=== PATIENT | female | born 1955 | race Caucasian/White ===

== ENCOUNTER → 2016-08-17 | Outpatient (CLI) | payer MEDICARE, OTHER ==
--- NOTE | 2016-08-17 11:47 | ECHOS ---
DATE OF SERVICE: 08/17/2016 AGE: 60Y SEX: F HT: 61 WT: 98 lbs. Protocol Davi: X Others: Stress Echo Stage: II Dur. of Exercise: 6 minutes *Heart Rate Blood Pressure *Rest: 89 Rest: 144/92 * *Max. Achieved: 129 Maximum BP: 144/92 85% PMHR: 135 100% PMHR: 159 *METS: 6.4 INDICATIONS: Chest pain. MEDICATIONS: Lisinopril, Lasix, Evista, aspirin, Requip, Lipitor, Ventolin, Selenium. CLINICAL INFORMATION: Shortness of breath, chest pain, hypertension, family history of coronary artery disease. Resting ECG shows sinus rhythm, rate of 89 beats per minutes, KS interval 0.16, QRS of 0.08, normal ST-T waves. Utilizing a standard Davi protocol, a symptom limited treadmill test was performed. Patient exercised for total of 6 minutes, attained a peak heart rate of 129 beats per minute, which is approximately 81% predicted maximum heart rate, ( ) below the required. Patient did not report any symptoms. Exercise test was terminated because of fatigue. No ST segment deviations indicative of ischemia are noted at this subdiagnostic heart rate. Baseline images show normal thickening and contractility. Postexercise images show improved contractility and thickening, but at 81% predicted maximum heart rate clinical correlation is suggested. [employer] WORK[employer] IMPRESSION: 1. Normal stress echocardiogram, but at 81% predicted maximal heart rate, did not reach 85%. Clinical correlation is suggested. 2. Patient did not report any symptoms other than fatigue and shortness of breath. No ST segment deviations indicative of ischemia were noted in any of the monitoring 12 leads.
== END | disposition home or self-care (01) ==
LOC: RADNMMAIN 08:42
PROVIDERS: ATTEND Family Medicine
DX: R06.02 Shortness of breath (principal); R53.83 Other fatigue; R07.9 Chest pain, unspecified
CPT/HCPCS: 93017; 93350

== ENCOUNTER → 2016-09-25 | Outpatient (CLI) | payer MEDICARE, OTHER ==
--- NOTE | 2016-09-25 09:48 | MM ---
Reason for exam: follow-up at short interval from prior study. Last mammogram was performed 6 months ago. History: Patient is postmenopausal. Benign US biopsy breast VAD LT of the left breast, January 28, 2015. Benign US biopsy breast add'l VAD LT of the left breast, January 28, 2015. Benign US RT VAD breast biopsy of the right breast, July 30, 2013. Benign US RT VAD breast biopsy of the right breast, July 30, 2013. Benign US RT VAD breast biopsy of the right breast, July 30, 2013. Benign US LT VAD breast biopsy of the left breast, July 30, 2013. Benign right breast aspiration of the right breast, July 25, 2012. Benign right breast aspiration additional of the right breast, July 25, 2012. Benign US right guided mammotome of the right breast, November 08, 2005. Benign excisional biopsy of the left breast, November 22, 1998. Stereotactic core biopsy of the left breast, November 17, 1998. Took estrogen for 1 year beginning at age 51. Physical Findings: Nurse did not find any significant physical abnormalities on exam. MG 3D Diag Mammo W/Cad RT CC and MLO view(s) were taken of the right breast. Prior study comparison: March 20, 2016, bilateral MG 3d diag mammo w/cad LEENA. August 17, 2015, bilateral MG 3d diag mammo w/cad LEENA. The breast tissue is extremely dense which could obscure a lesion on mammography. Finding #1: Stable architectural distortion in the upper outer quadrant, anterior position of the right breast. Finding #2: There are typically benign dystrophic, round, grouped, diffuse/scattered calcifications in the right breast. Previous mammotome biopsy in the right breast x 3. There is no discrete abnormality. These results were verbally communicated with the patient and result sheet given to the patient on 09/25/16. ASSESSMENT: Benign, BI-RAD 2 RECOMMENDATION: Follow-up diagnostic mammogram of both breasts in 6 months. Back on schedule.
== END | disposition home or self-care (01) ==
LOC: RADMAMWWP 08:49
PROVIDERS: ATTEND Family Medicine
DX: R92.8 Other abnormal and inconclusive findings on diagnostic imaging of breast (principal)
CPT/HCPCS: G0206; G0279

== ENCOUNTER → 2016-10-15 | Outpatient (CLI) | payer MEDICARE, OTHER ==
--- NOTE | 2016-10-15 11:45 | BD ---
EXAMINATION TYPE: MG DEXA axial skeleton. DATE OF EXAM: 10/15/2016 8:30 AM CLINICAL HISTORY: Height: 60 inches Weight: 100 FRAX RISK QUESTIONS: Alcohol (3 or more units per day): no Family History (Parent hip fracture): no Glucocorticoids (More than 3mos): asthma meds (Ex: prednisone, prednisolone, methylprednisolone, dexamethasone, and hydrocortisone). History of Fracture in Adulthood: thumb & rib Secondary Osteoporosis: 1. Type 1 Diabetes: no 2. Hyperthyroidism: no 3. Menopause before 45: no 4. Malnutrition: no 5. Chronic liver disease: no Rheumatoid Arthritis: yes Current Tobacco Use: no RISK FACTORS HISTORY OF: Surgery to Spine: yes When: 1999 Family History of Osteoporosis: father Smoke tobacco: quit 2009 Drink Alcohol: occasionally Active: yes Diet low in dairy products/other sources of calcium: at least one serving a day-dairy allergy Postmenopausal woman: yes, partial hysterectomy age 25, menopause 47 Take estrogen and/or progesterone medications: Evista for over 3 years How long: at one time took Estrogen about age [age] Lost more than 2 inches in height since high school: yes Frequent falls: no Poor Health: no Hyperparathyroidism: no Adrenal Insufficiency: no MEDICATIONS: Prednisone or other steroids: asthma meds How Long: over 5 years Thyroid Medications: no Osteoporosis Medications: Yes Which medication: Evista How Long: over 3 years Additional Medications: Symbicort, Ventolin(albuterol), Atenolol EXAM MEASUREMENTS: Bone mineral densitometry was performed using the [employer] System. Bone mineral density NOT measured about the Lumbar spine because of previous lower back surgery Bone mineral density about the R hip (g/cm2): 0.955 Bone mineral density about the L hip (g/cm2): 0.836 T Score values are as follows: -----R Neck: -0.6 -----L Neck: -1.5 -----R Intertrochanter: -1.5 -----L Intertrochanter: -2.1 Bone mineral density has: Decreased -1.9% since study of: 08/03/2014 IMPRESSION: Normal (Values between +1 and -1 indicate normal bone mass) Right Neck Osteopenia (T Score between -2.5 and -1 as noted by T score values Left Hip & Right Intertrochanter There is slightly increased risk of fracture and the patient may be considered for treatment. Re-Screen 1-2 years. NOTE: T-SCORE=SD OF THE YOUNG ADULT MEAN.
== END | disposition home or self-care (01) ==
LOC: RADBDWWP 07:48
PROVIDERS: ATTEND Internal Medicine Hematology & Oncology
DX: M85.852 Other specified disorders of bone density and structure, left thigh (principal); M85.851 Other specified disorders of bone density and structure, right thigh
CPT/HCPCS: 77080

== ENCOUNTER 2017-02-12 15:17 | Emergency (ER) | payer MEDICARE ==
[2017-02-12] MEDS ORDERED: ALBUTEROL NEBULIZED 2.5 MG/3 ML INHALATION STA (15:38)
[2017-02-12] MEDS ORDERED: SODIUM CHLORIDE 0.9% 1,000 ML IV STA ×2 (15:38)
[2017-02-12] MEDS ORDERED: methylPREDNISolone SOD SUCCI 125 MG/2 ML VIAL IV STA (15:38)
[2017-02-12] MEDS ORDERED: IPRATROPIUM 0.5 MG/2.5 ML NEBU INHALATION STA (15:38)
--- NOTE | 2017-02-12 15:40 | ED ---
General Adult HPI - General Chief complaint: Abdominal Pain Stated complaint: Green Stool Time Seen by Provider: 02/12/17 15:31 Source: patient, RN notes reviewed, old records reviewed Mode of arrival: ambulatory Limitations: no limitations - History of Present Illness Initial comments: This is a 62-year-old female ER for evaluation of shortness of breath cough, shortness with cough and congestion. History of emphysema history of bronchitis. Patient has had no recent hospital admissions. No travel history no chest pain. Patient states she seen her family doctor twice in the past week for this similar complaint, diagnosed with bronchitis has tried different antibiotics with no improvement. Patient also noticed nausea and agreed bowel movement that had made her nervous today but she denies about no diarrhea. No blood. Patient's doing her nebulizers at home at this time with no improvement - Related Data Home Medications Medication Instructions Recorded Confirmed Albuterol Inhaler [Ventolin Hfa 1 - 2 puff INHALATION RT-Q6H PRN 11/04/15 Inhaler] Atenolol [Tenormin] 25 mg PO DAILY 11/04/15 01/09/16 Budesonide-Formot 160-4.5 Mcg 2 puff INHALATION RT-BID 11/04/15 01/09/16 [Symbicort 160-4.5 Mcg Inhaler] Calcium Carbonate/Vitamin D3 1 tab PO QID 11/04/15 01/09/16 [Calcium 600 + Vit D Tablet] Prasterone (Dhea) [Dhea 25] 25 mg PO QID 11/04/15 01/09/16 rOPINIRole HCL [Requip] 0.5 mg PO HS 11/04/15 01/09/16 traZODone HCL 50 mg PO HS 11/04/15 01/09/16 Atorvastatin [Lipitor] 40 mg PO HS 12/12/15 01/09/16 Chlorthalidone [Chlorthalidone] 25 mg PO DAILY 12/12/15 01/09/16 Paliperidone IM [Invega Sustenna] 156 mg IM Q30D 12/12/15 01/09/16 Raloxifene HCl [Raloxifene HCl] 60 mg PO DAILY 12/12/15 01/09/16 Furosemide [Lasix] 1 tab PO DAILY 01/09/16 01/09/16 Previous Rx's Medication Instructions Recorded Ampicillin Trihydrate 500 mg PO QID #40 cap 12/17/15 Cephalexin [Keflex] 500 mg PO Q6HR #28 cap 01/09/16 Allergies Allergy/AdvReac Type Severity Reaction Status Date / Time Milk Containing Products Allergy Unknown Swelling Verified 02/12/17 15:20 [Dairy] Review of Systems ROS Statement: Those systems with pertinent positive or pertinent negative responses have been documented in the HPI. ROS Other: All systems not noted in ROS Statement are negative. Past Medical History Past Medical History: Asthma, COPD, Hyperlipidemia, Hypertension History of Any Multi-Drug Resistant Organisms: None Reported Past Surgical History: Adenoidectomy, Back Surgery, Section, Hysterectomy, Tonsillectomy Past Anesthesia/Blood Transfusion Reactions: No Reported Reaction Past Psychological History: Schizophrenia Smoking Status: Former smoker Past Alcohol Use History: None Reported Past Drug Use History: None Reported - Past Family History Mother Family Medical History: COPD General Exam Limitations: no limitations General appearance: alert, in no apparent distress Head exam: Present: atraumatic, normocephalic, normal inspection Eye exam: Present: normal appearance, PERRL, EOMI. Absent: scleral icterus, conjunctival injection, periorbital swelling ENT exam: Present: normal exam, mucous membranes moist Neck exam: Present: normal inspection. Absent: tenderness, meningismus, lymphadenopathy Respiratory exam: Present: normal lung sounds bilaterally, wheezes, decreased breath sounds, prolonged expiratory. Absent: respiratory distress, rales, rhonchi, stridor Cardiovascular Exam: Present: regular rate, normal rhythm, normal heart sounds. Absent: systolic murmur, diastolic murmur, rubs, gallop, clicks GI/Abdominal exam: Present: soft, normal bowel sounds. Absent: distended, tenderness, guarding, rebound, rigid Extremities exam: Present: normal inspection, full ROM, normal capillary refill. Absent: tenderness, pedal edema, joint swelling, calf tenderness Back exam: Present: normal inspection Neurological exam: Present: alert, oriented X3, CN II-XII intact Psychiatric exam: Present: normal affect, normal mood Skin exam: Present: warm, dry, intact, normal color. Absent: rash Course Vital Signs 02/12/17 02/12/17 02/12/17 15:18 15:55 16:11 Temperature 97.1 F L Pulse Rate 95 85 86 Respiratory 16 Rate Blood Pressure 146/82 O2 Sat by Pulse 95 Oximetry 02/12/17 02/12/17 02/12/17 16:36 16:57 17:43 Temperature 97.3 F L Pulse Rate 84 92 97 Respiratory 13 Rate Blood Pressure 113/71 O2 Sat by Pulse 98 Oximetry Medical Decision Making - Medical Decision Making 61 female in the ER for evaluation. Patient coming in with COPD exacerbation x- ray negative lab work normal patient can be discharged home - Lab Data Result diagrams: 02/12/17 15:56 02/12/17 15:56 Lab Results 02/12/17 02/12/17 02/12/17 Range/Units 15:56 15:56 15:56 WBC 11.4 H (3.8-10.6) k/uL RBC 4.09 (3.80-5.40) m/uL Hgb 13.4 (11.4-16.0) gm/dL Hct 37.6 (34.0-46.0) % MCV 92.0 (80.0-100.0) fL MCH 32.7 (25.0-35.0) pg MCHC 35.5 (31.0-37.0) g/dL RDW 12.6 (11.5-15.5) % Plt Count 279 (150-450) k/uL Neutrophils % 76 % Lymphocytes % 8 % Monocytes % 6 % Eosinophils % 6 % Basophils % 2 % Neutrophils # 8.7 H (1.3-7.7) k/uL Lymphocytes # 1.0 (1.0-4.8) k/uL Monocytes # 0.7 (0-1.0) k/uL Eosinophils # 0.7 (0-0.7) k/uL Basophils # 0.2 (0-0.2) k/uL PT (9.0-12.0) sec INR (<1.1) APTT (22.0-30.0) sec D-Dimer (<0.60) mg/L FEU Sodium 130 L (137-145) mmol/L Potassium 4.3 (3.5-5.1) mmol/L Chloride 94 L (98-107) mmol/L Carbon Dioxide 24 (22-30) mmol/L Anion Gap 12 mmol/L BUN 20 H (7-17) mg/dL Creatinine 0.70 (0.52-1.04) mg/dL Est GFR (MDRD) Af Amer >60 (>60 ml/min/1.73 sqM) Est GFR (MDRD) Non-Af >60 (>60 ml/min/1.73 sqM) Glucose 90 (74-99) mg/dL Calcium 9.0 (8.4-10.2) mg/dL Magnesium 1.8 (1.6-2.3) mg/dL Total Bilirubin 0.4 (0.2-1.3) mg/dL AST 33 (14-36) U/L ALT 48 (9-52) U/L Alkaline Phosphatase 41 (38-126) U/L Total Creatine Kinase 242 H (30-135) U/L CK-MB (CK-2) 4.9 H* (0.0-2.4) ng/mL CK-MB (CK-2) Rel Index 2.0 Troponin I <0.012 (0.000-0.034) ng/mL NT-Pro-B Natriuret Pep pg/mL Total Protein 6.4 (6.3-8.2) g/dL Albumin 4.0 (3.5-5.0) g/dL 02/12/17 02/12/17 Range/Units 15:56 15:56 WBC (3.8-10.6) k/uL RBC (3.80-5.40) m/uL Hgb (11.4-16.0) gm/dL Hct (34.0-46.0) % MCV (80.0-100.0) fL MCH (25.0-35.0) pg MCHC (31.0-37.0) g/dL RDW (11.5-15.5) % Plt Count (150-450) k/uL Neutrophils % % Lymphocytes % % Monocytes % % Eosinophils % % Basophils % % Neutrophils # (1.3-7.7) k/uL Lymphocytes # (1.0-4.8) k/uL Monocytes # (0-1.0) k/uL Eosinophils # (0-0.7) k/uL Basophils # (0-0.2) k/uL PT 10.2 (9.0-12.0) sec INR 1.0 (<1.1) APTT 23.6 (22.0-30.0) sec D-Dimer 0.48 (<0.60) mg/L FEU Sodium (137-145) mmol/L Potassium (3.5-5.1) mmol/L Chloride (98-107) mmol/L Carbon Dioxide (22-30) mmol/L Anion Gap mmol/L BUN (7-17) mg/dL Creatinine (0.52-1.04) mg/dL Est GFR (MDRD) Af Amer (>60 ml/min/1.73 sqM) Est GFR (MDRD) Non-Af (>60 ml/min/1.73 sqM) Glucose (74-99) mg/dL Calcium (8.4-10.2) mg/dL Magnesium (1.6-2.3) mg/dL Total Bilirubin (0.2-1.3) mg/dL AST (14-36) U/L ALT (9-52) U/L Alkaline Phosphatase (38-126) U/L Total Creatine Kinase (30-135) U/L CK-MB (CK-2) (0.0-2.4) ng/mL CK-MB (CK-2) Rel Index Troponin I (0.000-0.034) ng/mL NT-Pro-B Natriuret Pep 86 pg/mL Total Protein (6.3-8.2) g/dL Albumin (3.5-5.0) g/dL - Radiology Data Radiology results: report reviewed (Chest x-ray is negative for acute disease), image reviewed Disposition Clinical Impression: COPD exacerbation, Dehydration Disposition: HOME SELF-CARE Condition: Good Instructions: COPD (Chronic Obstructive Pulmonary Disease) (ED) Referrals: Ariel Corley MD [Primary Care Provider] - 1-2 days
[2017-02-12 16:11] LABS: Basophils # (A) 0.2 k/uL (0-0.2); Basophils % (A) 2 %; CH 31.9; CHCM 34.8; Eosinophils # (A) 0.7 k/uL (0-0.7); Eosinophils % (A) 6 %; HCT 37.6 % (34.0-46.0); HGB 13.4 gm/dL (11.4-16.0); Luc % (Auto) 2; Lymphocytes % (A) 8 %; MCH 32.7 pg (25.0-35.0); MCHC 35.5 g/dL (31.0-37.0); Mean Platelet Volume 6.3; Monocytes # (A) 0.7 k/uL (0-1.0); Monocytes % (A) 6 %; Neutrophils # (A) 8.7 k/uL (1.3-7.7); Neutrophils % (A) 76 %; RBC 4.09 m/uL (3.80-5.40); RDW 12.6 % (11.5-15.5); WBC 11.4 k/uL (3.8-10.6); WBC (Perox) 11.04
[2017-02-12 16:22] LABS: ALT 48 U/L (9-52); AST 33 U/L (14-36); Alkaline Phosphatase 41 U/L (38-126); Anion Gap 12 mmol/L; Blood Urea Nitrogen 20 mg/dL (7-17); Carbon Dioxide 24 mmol/L (22-30); Chloride 94 mmol/L (98-107); Glucose 90 mg/dL (74-99); Magnesium 1.8 mg/dL (1.6-2.3); Non-African American GFR(MDRD) >60 (>60 ml/min/1.73 sqM); Potassium 4.3 mmol/L (3.5-5.1); Sodium 130 mmol/L (137-145); Total Bilirubin 0.4 mg/dL (0.2-1.3); Total Protein 6.4 g/dL (6.3-8.2)
[2017-02-12 16:25] LABS: Partial Thromboplastin Time 23.6 sec (22.0-30.0); Prothrombin Time 10.2 sec (9.0-12.0)
--- NOTE | 2017-02-12 16:26 | XR ---
EXAMINATION TYPE: XR chest 1V portable DATE OF EXAM: 02/12/2017 COMPARISON: 12/12/2015 HISTORY: Difficulty breathing TECHNIQUE: Single frontal view of the chest is obtained. FINDINGS: There is no heart failure nor confluent pneumonic infiltrate. There is pulmonary hyperinfl ation with some flattening of the diaphragm. There are no hilar masses. Bony thorax is intact. IMPRESSION: COPD. No acute lung disease. No change.
[2017-02-12 16:33] LABS: Creatine Kinase 242 U/L (30-135)
[2017-02-12 16:46] LABS: Troponin I <0.012 ng/mL (0.000-0.034)
[2017-02-12 16:48] LABS: Creatine Kinase MB 4.9 ng/mL (0.0-2.4)
[2017-02-12 17:44] VITALS: BP 113/71; PULSE 97; TEMP 97.3
[2017-02-12 18:28] VITALS: RESP 20
== END 2017-02-12 18:27 | disposition home or self-care (01) ==
LOC: EC 15:17
DX: J44.1 Chronic obstructive pulmonary disease with (acute) exacerbation (principal); E86.0 Dehydration; R11.0 Nausea; J45.909 Unspecified asthma, uncomplicated; E78.5 Hyperlipidemia, unspecified; I10 Essential (primary) hypertension; F20.9 Schizophrenia, unspecified; Z87.891 Personal history of nicotine dependence; Z79.51 Long term (current) use of inhaled steroids; Z79.899 Other long term (current) drug therapy; Z91.011 Allergy to milk products
CPT/HCPCS: 36415; 94644; 85379; 83880; 80053; 82550; 82553; 83735; 84484; 85025; 85610; 85730; 87040; 71010; 99284; 96374; 96361 ×2; J2930

== ENCOUNTER 2017-03-16 16:54 | Emergency (ER) | payer MEDICARE ==
[2017-03-16] MEDS ORDERED: methylPREDNISolone SOD SUCCI 125 MG/2 ML VIAL IV STA (17:06)
[2017-03-16] MEDS ORDERED: SODIUM CHLORIDE 0.9% 500 ML IV STA (17:06)
[2017-03-16] MEDS ORDERED: IPRATROPIUM 0.5 MG/2.5 ML NEBU INHALATION STA (17:06)
[2017-03-16] MEDS ORDERED: ALBUTEROL NEBULIZED 2.5 MG/3 ML INHALATION STA (17:06)
--- NOTE | 2017-03-16 17:09 | ED ---
General Adult HPI - General Chief complaint: Recheck/Abnormal Lab/Rx Stated complaint: Diff breathing Time Seen by Provider: 03/16/17 17:01 Source: patient, RN notes reviewed, old records reviewed Mode of arrival: ambulatory Limitations: no limitations - History of Present Illness Initial comments: 61-year-old female presents with chief complaint of cough and difficulty breathing. This worsened over the past 2 days. Patient has history of COPD, she was treated for Bronchitis approximately one month ago, completed antibiotics at that time. Patient states her last 2 days her symptoms have begun again, and worsened. She reports cough productive of white to fernandez sputum. She also has subjective fever and chills. Denies chest pain. Denies abdominal pain. Denies nausea vomiting or diarrhea. - Related Data Home Medications Medication Instructions Recorded Confirmed Albuterol Inhaler [Ventolin Hfa 1 - 2 puff INHALATION RT-Q6H PRN 11/04/15 Inhaler] Budesonide-Formot 160-4.5 Mcg 2 puff INHALATION RT-BID 11/04/15 01/09/16 [Symbicort 160-4.5 Mcg Inhaler] Calcium Carbonate/Vitamin D3 1 tab PO QID 11/04/15 01/09/16 [Calcium 600 + Vit D Tablet] rOPINIRole HCL [Requip] 0.5 mg PO HS 11/04/15 01/09/16 traZODone HCL 50 mg PO HS 11/04/15 01/09/16 Atorvastatin [Lipitor] 40 mg PO HS 12/12/15 01/09/16 Paliperidone IM [Invega Sustenna] 156 mg IM Q30D 12/12/15 01/09/16 Raloxifene HCl [Raloxifene HCl] 60 mg PO DAILY 12/12/15 01/09/16 Furosemide [Lasix] 1 tab PO DAILY 01/09/16 01/09/16 Albuterol Nebulized [Ventolin 2.5 mg INHALATION RT-QID PRN 03/16/17 03/16/17 Nebulized] Ipratropium Nebulized [Atrovent 0.5 mg INHALATION RT-QID PRN 03/16/17 03/16/17 Nebulized] Lisinopril [Prinivil] 20 mg PO DAILY 03/16/17 03/16/17 Previous Rx's Medication Instructions Recorded Albuterol Inhaler [Ventolin Hfa 1 - 2 puff INHALATION Q4HR PRN #1 03/16/17 Inhaler] inhaler Doxycycline [Vibramycin] 50 mg PO Q12HR #20 capsule 03/16/17 predniSONE 50 mg PO DAILY #5 tablet 03/16/17 Allergies Allergy/AdvReac Type Severity Reaction Status Date / Time Milk Containing Products Allergy Unknown Swelling Verified 03/16/17 18:08 [Dairy] Review of Systems ROS Statement: Those systems with pertinent positive or pertinent negative responses have been documented in the HPI. ROS Other: All systems not noted in ROS Statement are negative. Respiratory: Reports: cough, dyspnea, wheezes Cardiovascular: Denies: chest pain, palpitations Past Medical History Past Medical History: Asthma, COPD, Hyperlipidemia, Hypertension History of Any Multi-Drug Resistant Organisms: None Reported Past Surgical History: Adenoidectomy, Back Surgery, Section, Hysterectomy, Tonsillectomy Past Anesthesia/Blood Transfusion Reactions: No Reported Reaction Past Psychological History: Schizophrenia Smoking Status: Former smoker Past Alcohol Use History: None Reported Past Drug Use History: None Reported - Past Family History Mother Family Medical History: COPD General Exam Limitations: no limitations General appearance: alert, in distress (Mild distress) Head exam: Present: atraumatic, normocephalic Eye exam: Present: normal appearance, PERRL, EOMI ENT exam: Present: normal exam, mucous membranes moist Neck exam: Present: normal inspection, full ROM. Absent: meningismus Respiratory exam: Present: wheezes, decreased breath sounds, prolonged expiratory Cardiovascular Exam: Present: regular rate, normal rhythm GI/Abdominal exam: Present: soft, distended. Absent: tenderness Extremities exam: Present: normal inspection, normal capillary refill. Absent: pedal edema Neurological exam: Present: alert, oriented X3, CN II-XII intact. Absent: motor sensory deficit Psychiatric exam: Present: normal affect, normal mood Skin exam: Present: warm, dry. Absent: cyanosis, diaphoretic Course Vital Signs 03/16/17 03/16/17 03/16/17 16:57 17:28 17:33 Temperature 97.9 F Pulse Rate 89 85 88 Respiratory 20 Rate Blood Pressure 125/80 O2 Sat by Pulse 93 L Oximetry 03/16/17 17:48 Temperature Pulse Rate 90 Respiratory Rate Blood Pressure O2 Sat by Pulse Oximetry EKG Findings - EKG Comments: EKG Findings:: EKG shows normal sinus rhythm, ventricular rate 80, VT interval 158, castration 70, QTC 440, there is no ST segment elevation or depression. Medical Decision Making - Medical Decision Making 59-year-old female presenting with a cough productive of fernandez sputum, subjective fever and chills, and worsening dyspnea over the past several days. Patient does have a history of COPD. Initial evaluation patient is tachypneic, ashen saturations in the low 90s on room air, and expiratory wheeze with prolonged expiration. Patient is given albuterol, Atrovent, and steroids and emergency prompt. Reevaluation oxygen saturation is improved 99% on room air. Patient is less tachypneic, increased air entry with minimal wheezing. Laboratory studies including CBC, CMP, and cardiac enzymes is unremarkable. EKG is nonischemic. Chest x-ray shows no focal pneumonia. Patient will be given a short course of steroids, albuterol, and antibiotics. She is encouraged to follow up with her primary care physician. Diagnosis: COPD exacerbation - Lab Data Result diagrams: 03/16/17 17:21 03/16/17 17:21 Lab Results 03/16/17 03/16/17 Range/Units 17:21 17:21 WBC 6.9 (3.8-10.6) k/uL RBC 4.41 (3.80-5.40) m/uL Hgb 13.8 (11.4-16.0) gm/dL Hct 41.8 (34.0-46.0) % MCV 94.8 (80.0-100.0) fL MCH 31.4 (25.0-35.0) pg MCHC 33.1 (31.0-37.0) g/dL RDW 12.5 (11.5-15.5) % Plt Count 373 (150-450) k/uL Neutrophils % 59 % Lymphocytes % 21 % Monocytes % 9 % Eosinophils % 7 % Basophils % 1 % Neutrophils # 4.1 (1.3-7.7) k/uL Lymphocytes # 1.5 (1.0-4.8) k/uL Monocytes # 0.6 (0-1.0) k/uL Eosinophils # 0.5 (0-0.7) k/uL Basophils # 0.1 (0-0.2) k/uL Sodium 136 L (137-145) mmol/L Potassium 5.1 (3.5-5.1) mmol/L Chloride 100 (98-107) mmol/L Carbon Dioxide 26 (22-30) mmol/L Anion Gap 10 mmol/L BUN 18 H (7-17) mg/dL Creatinine 0.70 (0.52-1.04) mg/dL Est GFR (MDRD) Af Amer >60 (>60 ml/min/1.73 sqM) Est GFR (MDRD) Non-Af >60 (>60 ml/min/1.73 sqM) Glucose 75 (74-99) mg/dL Calcium 9.2 (8.4-10.2) mg/dL Total Bilirubin 0.6 (0.2-1.3) mg/dL AST 36 (14-36) U/L ALT 31 (9-52) U/L Alkaline Phosphatase 34 L (38-126) U/L Total Protein 6.4 (6.3-8.2) g/dL Albumin 4.0 (3.5-5.0) g/dL Disposition Clinical Impression: COPD exacerbation Disposition: HOME SELF-CARE Instructions: Chronic Bronchitis (ED) Prescriptions: Albuterol Inhaler [Ventolin Hfa Inhaler] 1 - 2 puff INHALATION Q4HR PRN #1 inhaler PRN Reason: Shortness Of Breath Doxycycline [Vibramycin] 50 mg PO Q12HR #20 capsule predniSONE 50 mg PO DAILY #5 tablet Referrals: Ariel Corley MD [Primary Care Provider] - 1-2 days
--- NOTE | 2017-03-16 17:33 | XR ---
EXAMINATION TYPE: XR chest 2V DATE OF EXAM: 03/16/2017 COMPARISON: Chest x-ray February 12, 2017 HISTORY: History of emphysema presents with shortness of breath TECHNIQUE: Frontal and lateral views of the chest are obtained. FINDINGS: There is chronic emphysematous change without suspicious focal air space opacity, pleural effusion, or pneumothorax seen. The cardiac silhouette size is within normal limits with atheroscler otic thoracic aorta. The osseous structures are somewhat demineralized. Slightly asymmetric diminis hed size to left breast is redemonstrated. IMPRESSION: Chronic parenchymal changes without acute pulmonary process.
[2017-03-16 17:44] LABS: Basophils # (A) 0.1 k/uL (0-0.2); Basophils % (A) 1 %; CH 31.8; CHCM 33.7; Eosinophils # (A) 0.5 k/uL (0-0.7); Eosinophils % (A) 7 %; HCT 41.8 % (34.0-46.0); HDW 2.14; HGB 13.8 gm/dL (11.4-16.0); Luc % (Auto) 3; Lymphocytes # (A) 1.5 k/uL (1.0-4.8); Lymphocytes % (A) 21 %; MCH 31.4 pg (25.0-35.0); MCHC 33.1 g/dL (31.0-37.0); MCV 94.8 fL (80.0-100.0); Mean Platelet Volume 6.2; Monocytes # (A) 0.6 k/uL (0-1.0); Monocytes % (A) 9 %; Neutrophils # (A) 4.1 k/uL (1.3-7.7); Neutrophils % (A) 59 %; RBC 4.41 m/uL (3.80-5.40); RDW 12.5 % (11.5-15.5); WBC 6.9 k/uL (3.8-10.6)
[2017-03-16 17:54] LABS: ALT 31 U/L (9-52); AST 36 U/L (14-36); Alkaline Phosphatase 34 U/L (38-126); Anion Gap 10 mmol/L; Blood Urea Nitrogen 18 mg/dL (7-17); Calcium 9.2 mg/dL (8.4-10.2); Carbon Dioxide 26 mmol/L (22-30); Chloride 100 mmol/L (98-107); Glucose 75 mg/dL (74-99); Non-African American GFR(MDRD) >60 (>60 ml/min/1.73 sqM); Sodium 136 mmol/L (137-145); Total Bilirubin 0.6 mg/dL (0.2-1.3); Total Protein 6.4 g/dL (6.3-8.2)
[2017-03-16 17:56] LABS: Potassium 5.1 mmol/L (3.5-5.1)
[2017-03-16 18:00] LABS: Creatine Kinase 102 U/L (30-135)
[2017-03-16 18:12] LABS: Creatine Kinase MB 1.9 ng/mL (0.0-2.4); Troponin I <0.012 ng/mL (0.000-0.034)
[2017-03-16 18:35] VITALS: BP 127/78; PULSE 83; RESP 18; TEMP 97.1
== END 2017-03-16 18:35 | disposition home or self-care (01) ==
LOC: EC 16:54
DX: J44.1 Chronic obstructive pulmonary disease with (acute) exacerbation (principal); E78.5 Hyperlipidemia, unspecified; I10 Essential (primary) hypertension; J45.909 Unspecified asthma, uncomplicated; Z87.891 Personal history of nicotine dependence; Z79.51 Long term (current) use of inhaled steroids; Z79.899 Other long term (current) drug therapy; Z91.011 Allergy to milk products
CPT/HCPCS: 99285; 96374; 36415; 94644; 80053; 82550; 82553; 84484; 85025; 71020; J2930

== ENCOUNTER 2017-03-17 13:12 | Inpatient (IN) | payer MEDICARE ==
[2017-03-17] MEDS ORDERED: IPRATROPIUM 0.5 MG/2.5 ML NEBU INHALATION STA (13:54)
[2017-03-17] MEDS ORDERED: SODIUM CHLORIDE 0.9% 1,000 ML IV STA (13:54)
[2017-03-17] MEDS ORDERED: ALBUTEROL NEBULIZED 2.5 MG/3 ML INHALATION STA (13:54)
[2017-03-17] MEDS ORDERED: methylPREDNISolone SOD SUCCI 125 MG/2 ML VIAL IV STA (13:54)
[2017-03-17] MEDS ORDERED: diphenhydrAMINE 50 MG/ML 1 ML VIAL IVP STA (13:56)
[2017-03-17 14:24] LABS: Basophils % (A) 0 %; CH 31.8; CHCM 33.6; Eosinophils % (A) 0 %; HCT 40.1 % (34.0-46.0); HDW 2.14; HGB 13.2 gm/dL (11.4-16.0); Luc # (Auto) 0.17; Luc % (Auto) 2; Lymphocytes # (A) 0.8 k/uL (1.0-4.8); Lymphocytes % (A) 8 %; MCH 31.2 pg (25.0-35.0); MCHC 32.9 g/dL (31.0-37.0); MCV 94.9 fL (80.0-100.0); Mean Platelet Volume 6.4; Monocytes # (A) 0.8 k/uL (0-1.0); Monocytes % (A) 8 %; Neutrophils # (A) 8.6 k/uL (1.3-7.7); Neutrophils % (A) 83 %; RBC 4.22 m/uL (3.80-5.40); RDW 12.6 % (11.5-15.5); WBC 10.4 k/uL (3.8-10.6); WBC (Perox) 11.02
[2017-03-17 14:32] LABS: Partial Thromboplastin Time 23.1 sec (22.0-30.0); Prothrombin Time 10.1 sec (9.0-12.0)
[2017-03-17 14:46] LABS: Creatine Kinase 120 U/L (30-135)
[2017-03-17 14:53] LABS: ALT 30 U/L (9-52); AST 21 U/L (14-36); Alkaline Phosphatase 38 U/L (38-126); Anion Gap 10 mmol/L; Blood Urea Nitrogen 16 mg/dL (7-17); Carbon Dioxide 26 mmol/L (22-30); Chloride 102 mmol/L (98-107); Glucose 122 mg/dL (74-99); Non-African American GFR(MDRD) >60 (>60 ml/min/1.73 sqM); Potassium 3.8 mmol/L (3.5-5.1); Sodium 138 mmol/L (137-145); Total Bilirubin 0.2 mg/dL (0.2-1.3); Total Protein 5.9 g/dL (6.3-8.2)
[2017-03-17 14:59] LABS: Troponin I <0.012 ng/mL (0.000-0.034)
--- NOTE | 2017-03-17 15:01 | ED ---
General Adult HPI - General Chief complaint: Recheck/Abnormal Lab/Rx Stated complaint: SOB/poss med reaction Time Seen by Provider: 03/17/17 13:36 Source: patient, RN notes reviewed, old records reviewed Mode of arrival: wheelchair Limitations: no limitations - History of Present Illness Initial comments: 61-year-old female history of COPD presents with worsening cough and dyspnea. Patient was evaluated in the emergency department yesterday for COPD exacerbation. She was given albuterol, steroids, and doxycycline. Patient was feeling better at the time of discharge. She was in her usual state of health this morning. Took her antibiotic that was prescribed which was doxycycline and shortly after developed facial redness and swelling and increasing dyspnea. patient denied chest pain. Reports minimal cough. Denies tongue or lip swelling. No abdominal pain nausea or vomiting. No fever or chills. - Related Data Home Medications Medication Instructions Recorded Confirmed Budesonide-Formot 160-4.5 Mcg 2 puff INHALATION RT-BID 11/04/15 03/17/17 [Symbicort 160-4.5 Mcg Inhaler] Calcium Carbonate/Vitamin D3 1 tab PO QID 11/04/15 03/17/17 [Calcium 600 + Vit D Tablet] traZODone HCL 25 mg PO HS 11/04/15 03/17/17 Atorvastatin [Lipitor] 40 mg PO HS 12/12/15 03/17/17 Paliperidone IM [Invega Sustenna] 156 mg IM Q30D 12/12/15 03/17/17 Raloxifene HCl [Raloxifene HCl] 60 mg PO DAILY 12/12/15 03/17/17 Furosemide [Lasix] 20 mg PO DAILY 01/09/16 03/17/17 Albuterol Nebulized [Ventolin 2.5 mg INHALATION RT-QID PRN 03/16/17 03/17/17 Nebulized] Ipratropium Nebulized [Atrovent 0.5 mg INHALATION RT-QID PRN 03/16/17 03/17/17 Nebulized] Lisinopril [Prinivil] 20 mg PO DAILY 03/16/17 03/17/17 Montelukast [Singulair] 10 mg PO DAILY 03/17/17 03/17/17 rOPINIRole HCL [Requip] 1 mg PO HS 03/17/17 03/17/17 Previous Rx's Medication Instructions Recorded Albuterol Inhaler [Ventolin Hfa 1 - 2 puff INHALATION Q4HR PRN #1 03/16/17 Inhaler] inhaler predniSONE 50 mg PO DAILY #5 tablet 03/16/17 Allergies Allergy/AdvReac Type Severity Reaction Status Date / Time Milk Containing Products Allergy Unknown Swelling Verified 03/17/17 13:17 [Dairy] doxycycline Allergy Anaphylaxis Verified 03/17/17 13:57 Review of Systems ROS Statement: Those systems with pertinent positive or pertinent negative responses have been documented in the HPI. ROS Other: All systems not noted in ROS Statement are negative. Past Medical History Past Medical History: Asthma, COPD, Hyperlipidemia, Hypertension History of Any Multi-Drug Resistant Organisms: None Reported Past Surgical History: Adenoidectomy, Back Surgery, Section, Hysterectomy, Tonsillectomy Past Anesthesia/Blood Transfusion Reactions: No Reported Reaction Past Psychological History: Schizophrenia Smoking Status: Former smoker Past Alcohol Use History: None Reported Past Drug Use History: None Reported - Past Family History Mother Family Medical History: COPD General Exam Limitations: no limitations General appearance: alert, in distress (Moderate) Head exam: Present: atraumatic, normocephalic, other (There is facial erythema and mild swelling) Eye exam: Present: normal appearance, PERRL ENT exam: Present: normal exam, mucous membranes moist, other (Pneumatosis swelling, no lip swelling, no uvula or posterior oropharynx swelling no stridor. ) Neck exam: Present: normal inspection Respiratory exam: Present: respiratory distress (Mild), wheezes, prolonged expiratory Cardiovascular Exam: Present: normal rhythm, tachycardia GI/Abdominal exam: Present: soft. Absent: distended, tenderness Extremities exam: Present: normal inspection, normal capillary refill. Absent: pedal edema Back exam: Present: normal inspection Neurological exam: Present: alert, oriented X3. Absent: motor sensory deficit Psychiatric exam: Present: normal affect, normal mood Skin exam: Present: warm, dry. Absent: rash, cyanosis, diaphoretic, urticaria Course Vital Signs 03/17/17 03/17/17 03/17/17 13:13 14:11 14:28 Temperature 97.7 F Pulse Rate 101 H 100 111 H Respiratory 20 Rate Blood Pressure 126/81 O2 Sat by Pulse 96 Oximetry 03/17/17 14:45 Temperature Pulse Rate 89 Respiratory Rate Blood Pressure 119/75 O2 Sat by Pulse 96 Oximetry - Reevaluation(s) Reevaluation #1: 03/17/17 14:44 On reevaluation, after steroids, Benadryl and albuterol the patient is slightly less dyspneic. Still has end expiratory wheeze. EKG Findings - EKG Comments: EKG Findings:: EKG shows normal sinus rhythm, ventricular rate 81, CO interval 154, QRS duration 76, QTC 425 no signs of ischemia Medical Decision Making - Medical Decision Making 59-year-old female presents with cough and difficult to breathing, facial swelling and erythema after taking described antibiotic doxycycline. Patient does have history of COPD. She was seen in the emergency department treated for COPD exacerbation. On examination H and his tachypnea, decreased breath sounds bilaterally with an extremely wheeze. Patient is given steroids, Benadryl and albuterol in the emergency department. Reevaluation she remains somewhat tachypneic with end expiratory wheeze. Doxycycline is placed on her ALLERGY list. Patient will be admitted for further steroids, albuterol and reevaluation. Diagnosis: COPD exacerbation, ALLERGIC reaction. - Lab Data Result diagrams: 03/17/17 14:17 03/17/17 14:17 Lab Results 03/17/17 03/17/17 03/17/17 Range/Units 14:17 14:17 14:17 WBC 10.4 (3.8-10.6) k/uL RBC 4.22 (3.80-5.40) m/uL Hgb 13.2 (11.4-16.0) gm/dL Hct 40.1 (34.0-46.0) % MCV 94.9 (80.0-100.0) fL MCH 31.2 (25.0-35.0) pg MCHC 32.9 (31.0-37.0) g/dL RDW 12.6 (11.5-15.5) % Plt Count 358 (150-450) k/uL Neutrophils % 83 % Lymphocytes % 8 % Monocytes % 8 % Eosinophils % 0 % Basophils % 0 % Neutrophils # 8.6 H (1.3-7.7) k/uL Lymphocytes # 0.8 L (1.0-4.8) k/uL Monocytes # 0.8 (0-1.0) k/uL Eosinophils # 0.0 (0-0.7) k/uL Basophils # 0.0 (0-0.2) k/uL PT (9.0-12.0) sec INR (<1.2) APTT (22.0-30.0) sec Sodium 138 (137-145) mmol/L Potassium 3.8 (3.5-5.1) mmol/L Chloride 102 (98-107) mmol/L Carbon Dioxide 26 (22-30) mmol/L Anion Gap 10 mmol/L BUN 16 (7-17) mg/dL Creatinine 0.70 (0.52-1.04) mg/dL Est GFR (MDRD) Af Amer >60 (>60 ml/min/1.73 sqM) Est GFR (MDRD) Non-Af >60 (>60 ml/min/1.73 sqM) Glucose 122 H (74-99) mg/dL Calcium 9.0 (8.4-10.2) mg/dL Total Bilirubin 0.2 (0.2-1.3) mg/dL AST 21 (14-36) U/L ALT 30 (9-52) U/L Alkaline Phosphatase 38 (38-126) U/L Total Creatine Kinase 120 (30-135) U/L CK-MB (CK-2) 2.6 H* (0.0-2.4) ng/mL CK-MB (CK-2) Rel Index 2.2 Troponin I <0.012 (0.000-0.034) ng/mL Total Protein 5.9 L (6.3-8.2) g/dL Albumin 3.6 (3.5-5.0) g/dL 03/17/17 Range/Units 14:17 WBC (3.8-10.6) k/uL RBC (3.80-5.40) m/uL Hgb (11.4-16.0) gm/dL Hct (34.0-46.0) % MCV (80.0-100.0) fL MCH (25.0-35.0) pg MCHC (31.0-37.0) g/dL RDW (11.5-15.5) % Plt Count (150-450) k/uL Neutrophils % % Lymphocytes % % Monocytes % % Eosinophils % % Basophils % % Neutrophils # (1.3-7.7) k/uL Lymphocytes # (1.0-4.8) k/uL Monocytes # (0-1.0) k/uL Eosinophils # (0-0.7) k/uL Basophils # (0-0.2) k/uL PT 10.1 (9.0-12.0) sec INR 1.0 (<1.2) APTT 23.1 (22.0-30.0) sec Sodium (137-145) mmol/L Potassium (3.5-5.1) mmol/L Chloride (98-107) mmol/L Carbon Dioxide (22-30) mmol/L Anion Gap mmol/L BUN (7-17) mg/dL Creatinine (0.52-1.04) mg/dL Est GFR (MDRD) Af Amer (>60 ml/min/1.73 sqM) Est GFR (MDRD) Non-Af (>60 ml/min/1.73 sqM) Glucose (74-99) mg/dL Calcium (8.4-10.2) mg/dL Total Bilirubin (0.2-1.3) mg/dL AST (14-36) U/L ALT (9-52) U/L Alkaline Phosphatase (38-126) U/L Total Creatine Kinase (30-135) U/L CK-MB (CK-2) (0.0-2.4) ng/mL CK-MB (CK-2) Rel Index Troponin I (0.000-0.034) ng/mL Total Protein (6.3-8.2) g/dL Albumin (3.5-5.0) g/dL Disposition Clinical Impression: COPD exacerbation, Allergic reaction Disposition: ADMITTED IP TO THIS [facility] Condition: Stable Referrals: Ariel Corley MD [Primary Care Provider] - 1-2 days Decision to Admit Reason: Admit from EC Decision Date: 03/17/17 Decision Time: 15:34
[2017-03-17 15:17] LABS: Creatine Kinase MB 2.6 ng/mL (0.0-2.4)
--- NOTE | 2017-03-17 15:22 | XR ---
EXAMINATION TYPE: XR chest 2V DATE OF EXAM: 03/17/2017 COMPARISON: Yesterday HISTORY: Difficulty breathing TECHNIQUE: Frontal and lateral views of the chest are obtained. FINDINGS: There is slight blunting of right costophrenic angle and linear density at the lateral rig ht lung base. Heart size is normal. There is no heart failure. There are no hilar masses. There are c hest leads. Bony thorax is intact. IMPRESSION: There is mild pleural reaction and atelectasis at the lateral right lung base that is in creased compared to yesterday.
[2017-03-17] MEDS: SODIUM CHLORIDE 0.9% 1,000 ML IV SCH (18:57)
[2017-03-17] MEDS: IPRATROPIUM-ALBUTEROL 3 ML NEB INHALATION PRN ×2 (20:02→23:26)
[2017-03-17] MEDS: ATORVASTATIN 40 MG TAB PO SCH (20:17)
[2017-03-18] MEDS: IPRATROPIUM-ALBUTEROL 3 ML NEB INHALATION PRN ×4 (07:45→23:41)
[2017-03-18] MEDS: AZITHROMYCIN 500 MG TAB PO SCH (08:19)
[2017-03-18] MEDS: LISINOPRIL 20 MG TAB PO SCH (08:19)
[2017-03-18] MEDS: MONTELUKAST 10 MG TAB PO SCH (08:19)
[2017-03-18] MEDS: predniSONE 20 MG TAB PO SCH (08:20)
--- NOTE | 2017-03-18 16:06 | P.HPIM ---
History of Present Illness H&P Date: 03/18/17 Chief Complaint: Shortness of breath 61-year-old female who presented on the day of admission to the emergency room to be reevaluated for a chief complaint of shortness of breath. Patient apparently was seen the day before in the emergency room at that time the patient was being evaluated for shortness of breath was given steroids doxycycline and albuterol. Patient stated she was doing okay at the time of discharge. She took her antibiotic as was prescribed and developed shortly thereafter facials welling redness and increased shortness of breath. Patient stated that there was no tongue or lip swelling there was no abdominal pain or nausea vomiting no fever chills patient returned to the emergency room with the above-mentioned symptoms patient was admitted for acute exacerbation of COPD with an ALLERGIC reaction likely due to doxycycline Review of Systems Essentially unremarkable except as mentioned in the present illness Past Medical History Past Medical History: Asthma, COPD, Hyperlipidemia, Hypertension History of Any Multi-Drug Resistant Organisms: None Reported Past Surgical History: Adenoidectomy, Appendectomy, Back Surgery, Section, Hysterectomy, Tonsillectomy Past Anesthesia/Blood Transfusion Reactions: No Reported Reaction Smoking Status: Former smoker - Past Family History Mother Family Medical History: COPD Medications and Allergies Home Medications Medication Instructions Recorded Confirmed Type Budesonide-Formot 160-4.5 Mcg 2 puff INHALATION RT-BID 11/04/15 03/17/17 History [Symbicort 160-4.5 Mcg Inhaler] Calcium Carbonate/Vitamin D3 1 tab PO QID 11/04/15 03/17/17 History [Calcium 600 + Vit D Tablet] traZODone HCL 25 mg PO HS 11/04/15 03/17/17 History Atorvastatin [Lipitor] 40 mg PO HS 12/12/15 03/17/17 History Paliperidone IM [Invega Sustenna] 156 mg IM Q30D 12/12/15 03/17/17 History Raloxifene HCl [Raloxifene HCl] 60 mg PO DAILY 12/12/15 03/17/17 History Furosemide [Lasix] 20 mg PO DAILY 01/09/16 03/17/17 History Albuterol Nebulized [Ventolin 2.5 mg INHALATION RT-QID PRN 03/16/17 03/17/17 History Nebulized] Ipratropium Nebulized [Atrovent 0.5 mg INHALATION RT-QID PRN 03/16/17 03/17/17 History Nebulized] Lisinopril [Prinivil] 20 mg PO DAILY 03/16/17 03/17/17 History Montelukast [Singulair] 10 mg PO DAILY 03/17/17 03/17/17 History rOPINIRole HCL [Requip] 1 mg PO HS 03/17/17 03/17/17 History Allergies Allergy/AdvReac Type Severity Reaction Status Date / Time Milk Containing Products Allergy Unknown Swelling Verified 03/17/17 13:17 [Dairy] doxycycline Allergy Anaphylaxis Verified 03/17/17 13:57 Physical Exam Vitals: Vital Signs Temp Pulse Pulse Resp BP BP Pulse Ox 03/18/17 12:50 88 03/18/17 12:36 88 03/18/17 11:36 97.2 F L 69 18 134/76 95 03/18/17 08:00 82 16 130/84 96 03/18/17 07:56 92 03/18/17 07:45 98 03/18/17 04:00 80 14 139/89 95 03/18/17 00:00 97.9 F 95 16 118/72 93 L 03/17/17 23:34 96 03/17/17 23:26 91 03/17/17 20:09 84 03/17/17 20:02 84 03/17/17 20:00 97.9 F 80 18 117/67 95 03/17/17 18:47 98.2 F 104 H 20 152/88 96 03/17/17 18:44 98.9 F 85 18 123/81 95 03/17/17 18:00 98.8 F 84 18 123/80 95 03/17/17 17:00 83 18 115/70 96 Intake and Output 03/18/17 03/18/17 03/18/17 06:59 14:59 22:59 Intake Total 140 160 Balance 140 160 Intake: IV 140 160 Sodium Chloride 0.9% 1, 140 160 000 ml @ 20 mls/hr IV . Q24H [facility] Rx#:[id number] Other: # Voids 3 Weight 50.8 kg GENERAL APPEARANCE: 61-year-old female patient is alert, oriented, in no acute distress. VITAL SIGNS: Reviewed HEENT: Head is normocephalic and atraumatic. Pupils are equal and reactive. The nares are patent. Oropharynx is clear without lesions. NECK: Supple without lymphadenopathy. Traches midline. HEART: S1, S2. Regular rate and rhythm. Denying chest pain no murmur LUNGS: Coarse rhonchi throughout with bilateral prolonged expiratory wheezing room air sats 95% ABDOMEN: Soft, nontender, nondistended with good bowel sounds. No peritoneal signs. No palpable organomegaly or masses. EXTREMITIES: Normal skin color and turgor. No cyanosis, rash, ulceration, clubbing or edema. Radial pedal pulses are 2/4 bilaterally. NEUROLOGICAL: No focal deficits. Strength and sensation are grossly intact. Results CBC & Chem 7: 03/17/17 14:17 03/17/17 14:17 Thrombosis Risk Factor Assmnt - Choose All That Apply Each Risk Factor Represents 2 Points: Age 61-74 years Thrombosis Risk Factor Assessment Total Risk Factor Score: 2 Thrombosis Risk Factor Assessment Level: Low Risk Assessment and Plan Plan: Impression Worsening cough with shortness of breath due to an acute exacerbation COPD An ALLERGIC reaction to doxycycline with facial redness with swelling Hypertension Hyperlipidemia Mild asthma persist Former smoker Mood disorder Plan Respiratory treatments as ordered Continue with the IV antibiotic Zithromax DVT and GI prophylaxis Prednisone taper Prepped for probable discharge in the next 24 hours The above impression and plan of care have been discussed and directed by signing physician. Erica Avilez nurse practitioner acting as scribe for signing physician.
[2017-03-18] MEDS: SODIUM CHLORIDE 0.9% 1,000 ML IV SCH (17:24)
[2017-03-18] MEDS: ATORVASTATIN 40 MG TAB PO SCH (21:01)
[2017-03-18] MEDS: FAMOTIDINE 20 MG TAB PO SCH (21:02)
[2017-03-19] MEDS: IPRATROPIUM-ALBUTEROL 3 ML NEB INHALATION PRN ×4 (05:30→21:50)
--- NOTE | 2017-03-19 07:30 | HP ---
CHIEF COMPLAINT: Shortness of breath and possible drug reaction. HISTORY OF PRESENT ILLNESS: This is another admission for this 61-year-old white female who has a long history of smoking and has COPD. She stopped smoking several years ago. In addition, she experience some facial swelling, probably secondary to an antibiotic that she received in the emergency room early on. REVIEW OF SYSTEMS: She has had no neurologic problems, confusion, change in vision or hearing, chest pain, hemoptysis, murmurs, fever, orthopnea, PND, abdominal pain, nausea and vomiting, hematemesis, melena, hematochezia, jaundice , hematuria, frequency, urgency, arthralgias, etc. PAST MEDICAL HISTORY, FAMILY HISTORY, PERSONAL AND SOCIAL HISTORIES reveal she has a history of COPD and schizophrenia which has been under good control and unremarkable except for her medications. She is not allergic to anything. She takes updrafts with albuterol and ipratropium bromide 4 times a day and p.r.n., Symbicort 160/4.5 two puffs twice a day, Singulair 10 mg a day, Requip 1 mg at bedtime, lisinopril 20 mg once a day, Evista 60 mg once a day, Ventolin HFA, Lasix 20 mg once a day, trazodone 50 mg at bedtime, Invega 78 mg per 0.5 mL once a month, Lipitor 10 mg at bedtime , 81 mg of aspirin. The remainder of her history is unremarkable. PHYSICAL EXAM: Blood pressure 116/72 with a pulse of 98, respirations of 38 and she is afebrile. In general, she appeared to be in some mild respiratory distress. Her face is slightly puffy. Head, ears, eyes, nose, mouth and throat were normal. Neck veins were not distended. The thyroid is not enlarged. the chest demonstrates increased AP diameter with decreased breath sounds, wheezes, rales and rhonchi bilaterally. The cardiac exam demonstrates sinus tachycardia and the abdomen is soft and nontender and there is no mass or visceromegaly. Extremities are normal and neurologically she is intact. ASSESSMENT: 1. She is admitted to the hospital with diagnosis of pneumonic exacerbation with COPD. 2. Drug reaction? 3. Chronic obstructive pulmonary disease. 4. Schizophrenia. PLAN: 1. Bed rest. 2. IV fluids. 3. IV inhaled steroids. MTDD
[2017-03-19] MEDS: AZITHROMYCIN 500 MG TAB PO SCH (07:58)
[2017-03-19] MEDS: MONTELUKAST 10 MG TAB PO SCH (07:58)
[2017-03-19] MEDS: predniSONE 20 MG TAB PO SCH (07:58)
[2017-03-19] MEDS: FAMOTIDINE 20 MG TAB PO SCH ×2 (07:58→20:01)
[2017-03-19] MEDS: LISINOPRIL 20 MG TAB PO SCH (07:58)
--- NOTE | 2017-03-19 08:11 | PN ---
DATE OF SERVICE: 03/18/2017 CHIEF COMPLAINT: Exacerbation of COPD and allergic reaction. HISTORY OF PRESENT ILLNESS: This lady is doing a little bit better. She is less short of breath. She has had no fever, no chills, no chest pain, hives, etc. PHYSICAL EXAM: HEENT is normal and her chest is fairly clear. She does have an increased AP diameter. The breath sounds are diminished. Cardiac exam is normal. IMPRESSION: 1. Exacerbation of chronic obstructive pulmonary disease. 2. Drug reaction. PLAN: Continue with IV steroids and IV fluids. MTDD
[2017-03-19] MEDS: SODIUM CHLORIDE 0.9% 1,000 ML IV SCH (16:57)
[2017-03-19] MEDS: ATORVASTATIN 40 MG TAB PO SCH (20:01)
[2017-03-20] MEDS: IPRATROPIUM-ALBUTEROL 3 ML NEB INHALATION PRN ×6 (03:29→23:09)
[2017-03-20] MEDS: AZITHROMYCIN 500 MG TAB PO SCH (08:02)
[2017-03-20] MEDS: FAMOTIDINE 20 MG TAB PO SCH ×2 (08:02→21:36)
[2017-03-20] MEDS: LISINOPRIL 20 MG TAB PO SCH (08:02)
[2017-03-20] MEDS: predniSONE 20 MG TAB PO SCH (08:02)
[2017-03-20] MEDS: MONTELUKAST 10 MG TAB PO SCH (08:02)
[2017-03-20] MEDS: SODIUM CHLORIDE 0.9% 1,000 ML IV SCH (16:31)
--- NOTE | 2017-03-20 19:14 | PN ---
DATE OF SERVICE: 03/19/17 CHIEF COMPLAINT: Difficulty breathing. HISTORY OF PRESENT ILLNESS: This lady is still feeling very tight and wheezy and short of breath. She has had no pain, fever, chills, etc. PHYSICAL EXAMINATION: Breath sounds are diminished throughout. There are no rale or rhonchi. Cardiac exam is normal. Abdomen soft and nontender. IMPRESSION: Exacerbation of chronic obstructive pulmonary disease. PLAN: Continue current program. ARLYN
--- NOTE | 2017-03-20 19:49 | PN ---
DATE OF SERVICE: 03/20/17 CHIEF COMPLAINT: Shortness of breath. HISTORY OF PRESENT ILLNESS: This lady is doing a bit worse. She is not running a fever and she has had no pain. Breath sounds are fairly clear but they are diminished. Cardiac exam is normal. IMPRESSION: 1. Exacerbation of chronic obstructive pulmonary disease. 2. Drug reaction. 3. Schizophrenia. PLAN: 1. Continue along current course. 2. Consult pulmonology. ARLYN
[2017-03-20] MEDS: ATORVASTATIN 40 MG TAB PO SCH (21:37)
[2017-03-21] MEDS: IPRATROPIUM-ALBUTEROL 3 ML NEB INHALATION PRN ×5 (03:07→23:23)
[2017-03-21] MEDS: MONTELUKAST 10 MG TAB PO SCH (08:47)
[2017-03-21] MEDS: AZITHROMYCIN 500 MG TAB PO SCH (08:47)
[2017-03-21] MEDS: LISINOPRIL 20 MG TAB PO SCH (08:47)
[2017-03-21] MEDS: FAMOTIDINE 20 MG TAB PO SCH ×2 (08:47→20:33)
[2017-03-21] MEDS: predniSONE 20 MG TAB PO SCH (08:47)
--- NOTE | 2017-03-21 17:00 | P.PN ---
Subjective 61-year-old female sitting up in bed continues to report feeling short of breath with any exertion with audible wheezing "I don't feel like I'm getting any better" no cough noted patient has remained afebrile the temp this morning 97.6 tachycardic heart rate 100 Objective - Vital Signs Vital signs: Vital Signs Temp 97.6 F 03/21/17 15:00 Pulse 98 03/21/17 16:40 Resp 16 03/21/17 15:00 BP 117/88 03/21/17 15:00 Pulse Ox 96 03/21/17 16:30 Intake & Output 03/20/17 03/21/17 03/21/17 18:59 06:59 18:59 Other: Voiding Method Toilet # Voids 2 2 1 - Exam Physical exam 61-year-old female sitting up in bed talkative states still feels short of breath with walking to the bathroom and back "I have to stop I feel like he can' t catch a breath Lungs bilateral prolonged expiratory wheezing noted dry cough sats 96% on 2 L Heart S1-S2 audible regular Abdomen soft nontender reports no nausea vomiting Extremities no edema - Labs CBC & Chem 7: 03/17/17 14:17 03/17/17 14:17 Assessment and Plan Plan: Impression Worsening cough with shortness of breath due to an acute exacerbation COPD A RECENT EPISODE ALLERGIC reaction to doxycycline with facial redness with swelling Hypertension Hyperlipidemia Mild asthma persist Former smoker Mood disorder Plan Respiratory treatments as ordered Continue with antibiotic Zithromax DVT and GI prophylaxis Prednisone taper Pulmonary consultation requested The above impression and plan of care have been discussed and directed by signing physician. Erica Avilez nurse practitioner acting as scribe for signing physician.
[2017-03-21] MEDS: SODIUM CHLORIDE 0.9% 1,000 ML IV SCH (17:25)
--- NOTE | 2017-03-21 17:59 | P.CNPUL ---
History of Present Illness Consult date: 03/21/17 Requesting physician: Ariel Corley Reason for consult: dyspnea, COPD Chief complaint: Shortness of breath History of present illness: This is a very pleasant 61-year-old female patient who follows with Dr. Corley as her primary care physician. She has a history of chronic obstructive pulmonary disease, hyperlipidemia, hypertension, previous smoking history and quit in 2007. She also has a history of schizophrenia. She had presented to the emergency room initially on 03/16/2017 with complaints of increasing shortness of breath grade productive sputum and dyspnea on exertion. She was treated with a short course of steroids albuterol and doxycycline. She had return to the emergency room on 03/17/2017 with complaints of facial redness swelling in the tongue and throat and increasing shortness of breath, she was treated again with steroids Benadryl and albuterol however the patient remained somewhat tachypnea and with expiratory wheezing and she was admitted for the same. She is seen today in consultation for her COPD exacerbation. She is seen on the regular medical floor. She is a awake and alert in no acute distress. She states she is still quite dyspneic on minimal exertion and not quite back to her baseline. She has been maintained on DuoNeb inhalations every 4 hours as needed Zithromax, Singulair and prednisone taper. She states she had not been seen by a tunnel heading inspector in the outpatient setting. She was just recently started on some nebulized treatments. She is currently maintaining good O2 saturations in the mid to upper 90s on 2 L/m per nasal cannula. She is afebrile. No tachypnea. Initial chest x-ray revealed a mild pleural reaction and atelectasis of the lateral right lung base that was slightly increased compared to previous. Review of Systems 14 point review of system was conducted. All negative other than as mentioned in HPI. Past Medical History Past Medical History: Asthma, COPD, Hyperlipidemia, Hypertension History of Any Multi-Drug Resistant Organisms: None Reported Past Surgical History: Adenoidectomy, Appendectomy, Back Surgery, Section, Hysterectomy, Tonsillectomy Past Anesthesia/Blood Transfusion Reactions: No Reported Reaction Smoking Status: Former smoker - Past Family History Mother Family Medical History: COPD Medications and Allergies Home Medications Medication Instructions Recorded Confirmed Type Budesonide-Formot 160-4.5 Mcg 2 puff INHALATION RT-BID 11/04/15 03/17/17 History [Symbicort 160-4.5 Mcg Inhaler] Calcium Carbonate/Vitamin D3 1 tab PO QID 11/04/15 03/17/17 History [Calcium 600 + Vit D Tablet] traZODone HCL 25 mg PO HS 11/04/15 03/17/17 History Atorvastatin [Lipitor] 40 mg PO HS 12/12/15 03/17/17 History Paliperidone IM [Invega Sustenna] 156 mg IM Q30D 12/12/15 03/17/17 History Raloxifene HCl [Raloxifene HCl] 60 mg PO DAILY 12/12/15 03/17/17 History Furosemide [Lasix] 20 mg PO DAILY 01/09/16 03/17/17 History Albuterol Nebulized [Ventolin 2.5 mg INHALATION RT-QID PRN 03/16/17 03/17/17 History Nebulized] Ipratropium Nebulized [Atrovent 0.5 mg INHALATION RT-QID PRN 03/16/17 03/17/17 History Nebulized] Lisinopril [Prinivil] 20 mg PO DAILY 03/16/17 03/17/17 History Montelukast [Singulair] 10 mg PO DAILY 03/17/17 03/17/17 History rOPINIRole HCL [Requip] 1 mg PO HS 03/17/17 03/17/17 History Allergies Allergy/AdvReac Type Severity Reaction Status Date / Time Milk Containing Products Allergy Unknown Swelling Verified 03/17/17 13:17 [Dairy] doxycycline Allergy Anaphylaxis Verified 03/17/17 13:57 Physical Exam Vitals: Vital Signs Temp Pulse Pulse Resp BP BP Pulse Ox 03/21/17 16:40 98 03/21/17 16:30 100 96 03/21/17 15:00 97.6 F 101 H 16 117/88 95 03/21/17 10:57 103 H 16 03/21/17 10:48 103 H 16 03/21/17 08:36 96 16 03/21/17 08:26 96 16 03/21/17 08:00 16 03/21/17 07:00 97.8 F 109 H 20 152/86 91 L 03/21/17 03:16 92 03/21/17 03:07 88 03/20/17 23:22 92 03/20/17 23:11 96 03/20/17 23:00 97.0 F L 90 16 141/69 93 L 03/20/17 20:19 94 03/20/17 20:09 92 Intake and Output 03/21/17 03/21/17 03/21/17 06:59 14:59 22:59 Other: Voiding Method Toilet # Voids 2 1 GENERAL EXAM: Alert, active, comfortable in no apparent distress. HEAD: Normocephalic. EYES: Normal reaction of pupils, equal size. NOSE: Clear with pink turbinates. THROAT: No erythema or exudates. NECK: No masses, no JVD. CHEST: No chest wall deformity. LUNGS: Equal air entry with faint end expiratory wheeze bilaterally. Diminished. CVS: S1 and S2 normal with no audible murmurs, regular rhythm. ABDOMEN: No hepatosplenomegaly, normal bowel sounds, no guarding or rigidity. SPINE: No scoliosis or deformity SKIN: No rashes CENTRAL NERVOUS SYSTEM: No focal deficits, tone is normal in all 4 extremities. Extremities: There is no peripheral edema. No clubbing, no cyanosis. Peripheral pulses are intact. Results - Laboratory Findings CBC and BMP: 03/17/17 14:17 03/17/17 14:17 PT/INR, D-dimer PT 10.1 sec (9.0-12.0) 03/17/17 14:17 INR 1.0 (<1.2) 03/17/17 14:17 Abnormal lab findings: Abnormal Labs 03/17/17 03/17/17 03/17/17 14:17 14:17 14:17 Neutrophils # 8.6 H Lymphocytes # 0.8 L Glucose 122 H CK-MB (CK-2) 2.6 H* Total Protein 5.9 L - Diagnostic Findings Chest x-ray: image reviewed Assessment and Plan Plan: Impression: #1 Acute exacerbation of chronic obstructive pulmonary disease complicated by purulent tracheobronchitis. #2 Acute exacerbation of mild intermittent asthma suspect extrinsic ALLERGIC. #3 30+ year pack per day smoking history, quit in 2007. #4 Hyperlipidemia. #5 Hypertension. #6 Schizophrenia. Plan: The patient was seen and evaluated by Dr. Gutierrez. We will repeat her chest x- ray in the a.m. We will optimize her medications and utilizes DuoNeb inhalations 4 times a day and when necessary, add. Pulmicort and Perforomist inhalations twice a day. We'll continue with the prednisone taper. We'll continue with empiric antibiotics in the form of azithromycin. She would benefit from an outpatient workup including full pulmonary function testing to evaluate the severity of her COPD and make recommendations regarding maintenance medications. We will continue to follow and make further recommendations based on her clinical status. Time with Patient: Greater than 30
[2017-03-21] MEDS: IPRATROPIUM-ALBUTEROL 3 ML NEB INHALATION SCH (19:07)
[2017-03-21] MEDS: BUDESONIDE 1 MG/2 ML NEBU INHALATION SCH (19:07)
[2017-03-21] MEDS: FORMOTEROL FUMARATE 20 MCG/2 ML NEBU INHALATION SCH (19:07)
[2017-03-22] MEDS: IPRATROPIUM-ALBUTEROL 3 ML NEB INHALATION PRN ×2 (04:03→23:32)
[2017-03-22] MEDS: IPRATROPIUM-ALBUTEROL 3 ML NEB INHALATION SCH ×4 (07:44→20:54)
[2017-03-22] MEDS: FORMOTEROL FUMARATE 20 MCG/2 ML NEBU INHALATION SCH ×2 (07:44→20:54)
[2017-03-22] MEDS: BUDESONIDE 1 MG/2 ML NEBU INHALATION SCH ×2 (07:44→20:55)
[2017-03-22] MEDS: MONTELUKAST 10 MG TAB PO SCH (08:47)
[2017-03-22] MEDS: predniSONE 20 MG TAB PO SCH (08:47)
[2017-03-22] MEDS: FAMOTIDINE 20 MG TAB PO SCH ×2 (08:47→20:31)
[2017-03-22] MEDS: LISINOPRIL 20 MG TAB PO SCH (08:47)
[2017-03-22] MEDS: AZITHROMYCIN 500 MG TAB PO SCH (08:47)
--- NOTE | 2017-03-22 09:02 | XR ---
EXAMINATION TYPE: XR chest 2V DATE OF EXAM: 03/22/2017 COMPARISON: 03/17/2017 HISTORY: 61 year-old female follow-up right lower lobe pneumonia TECHNIQUE: Frontal and lateral views FINDINGS: The cardiomediastinal silhouette, aorta, and pulmonary vasculature are within normal limits. Mild int erstitial prominence and hyperinflation suggests underlying emphysema. There is a trace right effusio n with some adjacent peripheral right basilar opacity. IMPRESSION: 1. COPD. 2. Relatively similar trace right effusion with small amount of adjacent atelectasis and/or consolida tion.
--- NOTE | 2017-03-22 10:10 | PN ---
CHIEF COMPLAINT: Respiratory failure and exacerbation of COPD. HISTORY OF PRESENT ILLNESS: This lady is still having a lot of shortness of breath and there has been no improvement. PHYSICAL EXAM: Chest demonstrates poor breath sounds or wheezes, rales and rhonchi. The cardiac exam is normal. IMPRESSION: 1. Exacerbation of chronic obstructive pulmonary disease. 2. Schizophrenia. PLAN: Refer to Pulmonology. [facility]
--- NOTE | 2017-03-22 14:15 | P.PN ---
Subjective This is a very pleasant 61-year-old female patient who follows with Dr. Corley as her primary care physician. She has a history of chronic obstructive pulmonary disease, hyperlipidemia, hypertension, previous smoking history and quit in 2007. She also has a history of schizophrenia. She had presented to the emergency room initially on 03/16/2017 with complaints of increasing shortness of breath grade productive sputum and dyspnea on exertion. She was treated with a short course of steroids albuterol and doxycycline. She had return to the emergency room on 03/17/2017 with complaints of facial redness swelling in the tongue and throat and increasing shortness of breath, she was treated again with steroids Benadryl and albuterol however the patient remained somewhat tachypnea and with expiratory wheezing and she was admitted for the same. She is seen today in consultation for her COPD exacerbation. She is seen on the regular medical floor. She is a awake and alert in no acute distress. She states she is still quite dyspneic on minimal exertion and not quite back to her baseline. She has been maintained on DuoNeb inhalations every 4 hours as needed Zithromax, Singulair and prednisone taper. She states she had not been seen by a broadcast chief engineer in the outpatient setting. She was just recently started on some nebulized treatments. She is currently maintaining good O2 saturations in the mid to upper 90s on 2 L/m per nasal cannula. She is afebrile. No tachypnea. Initial chest x-ray revealed a mild pleural reaction and atelectasis of the lateral right lung base that was slightly increased compared to previous. The patient is seen again today 03/22/2017 in follow-up on the regular medical floor. She is awake and alert in no acute distress. She is doing quite a bit better today as compared to yesterday. She is less dyspneic on exertion. She is able to be up walking without significant shortness of breath. She still has a tight nonproductive cough. She is maintaining good O2 saturations in the mid 90s on room air. She is afebrile. Hemodynamically stable. She remains on bronchodilators 4 times a day and when necessary along with Pulmicort and Perforomist inhalations twice a day. She is on empiric antibiotics in the form of azithromycin. She is on a prednisone taper. Objective - Vital Signs Vital signs: Vital Signs Temp 97.3 F L 03/22/17 07:00 Pulse 92 03/22/17 11:59 Resp 16 03/22/17 07:00 BP 130/81 03/22/17 07:00 Pulse Ox 94 L 03/22/17 07:00 Intake & Output 03/21/17 03/22/17 03/22/17 18:59 06:59 18:59 Other: Voiding Method Toilet # Voids 1 1 - Exam GENERAL EXAM: Alert, active, comfortable in no apparent distress. HEAD: Normocephalic. EYES: Normal reaction of pupils, equal size. NOSE: Clear with pink turbinates. THROAT: No erythema or exudates. NECK: No masses, no JVD. CHEST: No chest wall deformity. LUNGS: Equal air entry with faint end expiratory wheezes. Diminished. CVS: S1 and S2 normal with no audible murmurs, regular rhythm. ABDOMEN: No hepatosplenomegaly, normal bowel sounds, no guarding or rigidity. SPINE: No scoliosis or deformity SKIN: No rashes CENTRAL NERVOUS SYSTEM: No focal deficits, tone is normal in all 4 extremities. Extremities: There is no significant peripheral edema. No clubbing, no cyanosis. Peripheral pulses are intact. - Labs CBC & Chem 7: 03/17/17 14:17 03/17/17 14:17 Assessment and Plan Plan: Impression: #1 Acute exacerbation of chronic obstructive pulmonary disease complicated by purulent tracheobronchitis. #2 Acute exacerbation of mild intermittent asthma suspect extrinsic ALLERGIC. #3 30+ year pack per day smoking history, quit in 2007. #4 Hyperlipidemia. #5 Hypertension. #6 Schizophrenia. Plan: The patient was seen and evaluated by Dr. Gutierrez. Her chest x-ray did not reveal any significant acute pulmonary process. There is evidence of COPD and a trace right pleural effusion. We will continue with her current medications. She would benefit from an outpatient workup including full pulmonary function testing to evaluate the severity of her COPD and make recommendations regarding maintenance medications. We will continue to follow and make further recommendations based on her clinical status.
--- NOTE | 2017-03-22 15:36 | P.PN ---
Subjective I 61-year-old female being seen. Patient states breathing feels slightly improved and less short of breath. Coughing less. Has continued to maintain good oxygen saturation in mid 90s on room air being followed by pulmonary Objective - Vital Signs Vital signs: Vital Signs Temp 98.0 F 03/22/17 15:00 Pulse 100 03/22/17 15:00 Resp 20 03/22/17 15:00 BP 125/84 03/22/17 15:00 Pulse Ox 95 03/22/17 15:00 Intake & Output 03/21/17 03/22/17 03/22/17 18:59 06:59 18:59 Other: Voiding Method Toilet # Voids 1 1 2 - Exam Physical exam 61-year-old female sitting up in bed talkative states still feels short of breath with walking to the bathroom and back "I have to stop I feel like he can' t catch a breath Lungs bilateral prolonged expiratory wheezing noted dry cough sats 96% on room air Heart S1-S2 audible regular Abdomen soft nontender reports no nausea vomiting Extremities no edema - Labs CBC & Chem 7: 03/17/17 14:17 03/17/17 14:17 Assessment and Plan Plan: Impression Worsening cough with shortness of breath due to an acute exacerbation COPD A RECENT EPISODE ALLERGIC reaction to doxycycline with facial redness with swelling Hypertension Hyperlipidemia Mild asthma persist Former smoker Mood disorder Plan Respiratory treatments as ordered Continue with antibiotic Zithromax DVT and GI prophylaxis Prednisone taper Kidney recommendations per pulmonary service The above impression and plan of care have been discussed and directed by signing physician. Erica Avilez nurse practitioner acting as scribe for signing physician.
[2017-03-23] MEDS: IPRATROPIUM-ALBUTEROL 3 ML NEB INHALATION SCH ×4 (07:34→22:29)
[2017-03-23] MEDS: FORMOTEROL FUMARATE 20 MCG/2 ML NEBU INHALATION SCH ×2 (07:34→18:08)
[2017-03-23] MEDS: BUDESONIDE 1 MG/2 ML NEBU INHALATION SCH ×2 (07:34→18:08)
[2017-03-23] MEDS: AZITHROMYCIN 500 MG TAB PO SCH (08:43)
[2017-03-23] MEDS: FAMOTIDINE 20 MG TAB PO SCH ×2 (08:44→20:50)
[2017-03-23] MEDS: MONTELUKAST 10 MG TAB PO SCH (08:44)
[2017-03-23] MEDS: predniSONE 20 MG TAB PO SCH (08:44)
[2017-03-23] MEDS: LISINOPRIL 20 MG TAB PO SCH (08:44)
--- NOTE | 2017-03-23 10:40 | PN ---
CHIEF COMPLAINT: Persistent shortness of breath. HISTORY OF PRESENT ILLNESS: This lady is to be seen by Pulmonology and she is still very dyspneic. PHYSICAL EXAM: She has an increased AP diameter with decreased breath sounds posteriorly at the bases and wheezing on inspiration and expiration. IMPRESSION: Exacerbation of chronic obstructive pulmonary disease. PLAN: Await evaluation by Pulmonology. ARLYN
[2017-03-23 12:16] VITALS: BMI 21.1
--- NOTE | 2017-03-23 13:59 | P.PN ---
Subjective This is a very pleasant 61-year-old female patient who follows with Dr. Corley as her primary care physician. She has a history of chronic obstructive pulmonary disease, hyperlipidemia, hypertension, previous smoking history and quit in 2007. She also has a history of schizophrenia. She had presented to the emergency room initially on 03/16/2017 with complaints of increasing shortness of breath grade productive sputum and dyspnea on exertion. She was treated with a short course of steroids albuterol and doxycycline. She had return to the emergency room on 03/17/2017 with complaints of facial redness swelling in the tongue and throat and increasing shortness of breath, she was treated again with steroids Benadryl and albuterol however the patient remained somewhat tachypnea and with expiratory wheezing and she was admitted for the same. She is seen today in consultation for her COPD exacerbation. She is seen on the regular medical floor. She is a awake and alert in no acute distress. She states she is still quite dyspneic on minimal exertion and not quite back to her baseline. She has been maintained on DuoNeb inhalations every 4 hours as needed Zithromax, Singulair and prednisone taper. She states she had not been seen by a manager drive in the outpatient setting. She was just recently started on some nebulized treatments. She is currently maintaining good O2 saturations in the mid to upper 90s on 2 L/m per nasal cannula. She is afebrile. No tachypnea. Initial chest x-ray revealed a mild pleural reaction and atelectasis of the lateral right lung base that was slightly increased compared to previous. The patient is seen again today 03/22/2017 in follow-up on the regular medical floor. She is awake and alert in no acute distress. She is doing quite a bit better today as compared to yesterday. She is less dyspneic on exertion. She is able to be up walking without significant shortness of breath. She still has a tight nonproductive cough. She is maintaining good O2 saturations in the mid 90s on room air. She is afebrile. Hemodynamically stable. She remains on bronchodilators 4 times a day and when necessary along with Pulmicort and Perforomist inhalations twice a day. She is on empiric antibiotics in the form of azithromycin. She is on a prednisone taper. The patient is seen again today 03/23/2017 in follow-up on the regular medical floor. She is currently resting quite comfortably in bed. She denies any worsening shortness of breath, cough or congestion. She states she is back to her baseline. She is maintaining good O2 saturations in the 90s on room air. She's been afebrile. She is anxious to go home. Objective - Vital Signs Vital signs: Vital Signs Temp 97.4 F L 03/23/17 07:00 Pulse 92 03/23/17 11:57 Resp 16 03/23/17 07:00 BP 111/73 03/23/17 07:00 Pulse Ox 94 L 03/23/17 07:00 Intake & Output 03/22/17 03/23/17 03/23/17 18:59 06:59 18:59 Weight 50.8 kg Other: Voiding Method Toilet Toilet # Voids 2 1 - Exam GENERAL EXAM: Alert, active, comfortable in no apparent distress. HEAD: Normocephalic. EYES: Normal reaction of pupils, equal size. NOSE: Clear with pink turbinates. THROAT: No erythema or exudates. NECK: No masses, no JVD. CHEST: No chest wall deformity. LUNGS: Equal air entry, no wheezes crackles or rhonchi. Diminished. CVS: S1 and S2 normal with no audible murmurs, regular rhythm. ABDOMEN: No hepatosplenomegaly, normal bowel sounds, no guarding or rigidity. SPINE: No scoliosis or deformity SKIN: No rashes CENTRAL NERVOUS SYSTEM: No focal deficits, tone is normal in all 4 extremities. Extremities: There is no significant peripheral edema. No clubbing, no cyanosis. Peripheral pulses are intact. - Labs CBC & Chem 7: 03/17/17 14:17 03/17/17 14:17 Assessment and Plan Plan: Impression: #1 Acute exacerbation of chronic obstructive pulmonary disease complicated by purulent tracheobronchitis. #2 Acute exacerbation of mild intermittent asthma suspect extrinsic ALLERGIC. #3 30+ year pack per day smoking history, quit in 2007. #4 Hyperlipidemia. #5 Hypertension. #6 Schizophrenia. Plan: The patient was seen and evaluated by Dr. Gutierrez. She is stable from the pulmonary standpoint and could be discharged home once cleared medically. She would benefit from an outpatient workup including full pulmonary function testing to evaluate the severity of her COPD and make recommendations regarding maintenance medications. She could resume her bronchodilators, Symbicort, Singulair and complete a prednisone taper.
--- NOTE | 2017-03-23 19:20 | PN ---
DATE OF SERVICE: 03/23/2017 CHIEF COMPLAINT: COPD and respiratory failure. HISTORY OF PRESENT ILLNESS: This lady is doing a little bit better. She is wheezing less, much less short of breath. PHYSICAL EXAM: CHEST: Breath sounds are somewhat diminished and there is some wheezing, but has improved. CARDIAC: Normal. ABDOMEN: Soft, nontender. IMPRESSION:. Exacerbation of chronic obstructive pulmonary disease. PLAN: Continue on program and she can go home when she is cleared by pulmonology. ARLYN
[2017-03-24] MEDS: BUDESONIDE 1 MG/2 ML NEBU INHALATION SCH (07:17)
[2017-03-24] MEDS: FORMOTEROL FUMARATE 20 MCG/2 ML NEBU INHALATION SCH (07:17)
[2017-03-24] MEDS: IPRATROPIUM-ALBUTEROL 3 ML NEB INHALATION SCH ×3 (07:17→15:19)
[2017-03-24 07:21] VITALS: RESP 16
[2017-03-24] MEDS: AZITHROMYCIN 500 MG TAB PO SCH (07:42)
[2017-03-24] MEDS: FAMOTIDINE 20 MG TAB PO SCH (07:42)
[2017-03-24] MEDS: LISINOPRIL 20 MG TAB PO SCH (07:42)
[2017-03-24] MEDS: predniSONE 20 MG TAB PO SCH (07:42)
[2017-03-24] MEDS: MONTELUKAST 10 MG TAB PO SCH (07:43)
--- NOTE | 2017-03-24 14:09 | P.PN ---
Subjective This is a very pleasant 61-year-old female patient who follows with Dr. Corley as her primary care physician. She has a history of chronic obstructive pulmonary disease, hyperlipidemia, hypertension, previous smoking history and quit in 2007. She also has a history of schizophrenia. She had presented to the emergency room initially on 03/16/2017 with complaints of increasing shortness of breath grade productive sputum and dyspnea on exertion. She was treated with a short course of steroids albuterol and doxycycline. She had return to the emergency room on 03/17/2017 with complaints of facial redness swelling in the tongue and throat and increasing shortness of breath, she was treated again with steroids Benadryl and albuterol however the patient remained somewhat tachypnea and with expiratory wheezing and she was admitted for the same. She is seen today in consultation for her COPD exacerbation. She is seen on the regular medical floor. She is a awake and alert in no acute distress. She states she is still quite dyspneic on minimal exertion and not quite back to her baseline. She has been maintained on DuoNeb inhalations every 4 hours as needed Zithromax, Singulair and prednisone taper. She states she had not been seen by a fine wire drawer in the outpatient setting. She was just recently started on some nebulized treatments. She is currently maintaining good O2 saturations in the mid to upper 90s on 2 L/m per nasal cannula. She is afebrile. No tachypnea. Initial chest x-ray revealed a mild pleural reaction and atelectasis of the lateral right lung base that was slightly increased compared to previous. The patient is seen again today 03/22/2017 in follow-up on the regular medical floor. She is awake and alert in no acute distress. She is doing quite a bit better today as compared to yesterday. She is less dyspneic on exertion. She is able to be up walking without significant shortness of breath. She still has a tight nonproductive cough. She is maintaining good O2 saturations in the mid 90s on room air. She is afebrile. Hemodynamically stable. She remains on bronchodilators 4 times a day and when necessary along with Pulmicort and Perforomist inhalations twice a day. She is on empiric antibiotics in the form of azithromycin. She is on a prednisone taper. The patient is seen again today 03/23/2017 in follow-up on the regular medical floor. She is currently resting quite comfortably in bed. She denies any worsening shortness of breath, cough or congestion. She states she is back to her baseline. She is maintaining good O2 saturations in the 90s on room air. She's been afebrile. She is anxious to go home. On 03/24/2017 the patient is improving. The patient is back to her baseline. No significant respiratory distress. No cough or sputum production. The patient will be discharged home today. Her outpatient medications included Symbicort 160/4.52 puffs twice a day. The patient would also benefit from prednisone burst taper. She has Ventolin rescue inhaler and albuterol nebulized treatments to be used on an as-needed basis. Objective - Vital Signs Vital signs: Vital Signs Temp 98.8 F 03/24/17 07:00 Pulse 88 03/24/17 11:16 Resp 16 03/24/17 07:00 BP 131/81 03/24/17 07:00 Pulse Ox 95 03/24/17 07:00 Intake & Output 03/23/17 03/24/17 03/24/17 18:59 06:59 18:59 Intake Total 540 Balance 540 Weight 50.8 kg Intake: Oral 540 Other: Voiding Method Toilet Toilet # Voids 3 1 - Exam GENERAL EXAM: Alert, active, comfortable in no apparent distress. HEAD: Normocephalic. EYES: Normal reaction of pupils, equal size. NOSE: Clear with pink turbinates. THROAT: No erythema or exudates. NECK: No masses, no JVD. CHEST: No chest wall deformity. LUNGS: Equal air entry, no wheezes crackles or rhonchi. Diminished. CVS: S1 and S2 normal with no audible murmurs, regular rhythm. ABDOMEN: No hepatosplenomegaly, normal bowel sounds, no guarding or rigidity. SPINE: No scoliosis or deformity SKIN: No rashes CENTRAL NERVOUS SYSTEM: No focal deficits, tone is normal in all 4 extremities. Extremities: There is no significant peripheral edema. No clubbing, no cyanosis. Peripheral pulses are intact. - Labs CBC & Chem 7: 03/17/17 14:17 03/17/17 14:17 Assessment and Plan Plan: Impression: #1 Acute exacerbation of chronic obstructive pulmonary disease complicated by purulent tracheobronchitis. The patient is for recovered and she is back to her baseline. #2 Acute exacerbation of mild intermittent asthma suspect extrinsic ALLERGIC. #3 30+ year pack per day smoking history, quit in 2007. #4 Hyperlipidemia. #5 Hypertension. #6 Schizophrenia. Plan Discharge patient home on a prednisone burst taper, Symbicort as maintenance, Ventolin rescue inhaler, and it's about treatments are necessary basis, we'll continue to follow.
[2017-03-24 15:34] VITALS: BP 128/76; PULSE 105; TEMP 97.5
--- NOTE | 2017-03-25 20:25 | DS ---
CHIEF COMPLAINT: Difficulty breathing. HISTORY OF PRESENT ILLNESS/PHYSICAL EXAMINATION: Details of this ladys history and physical examination can be found in the initial workup. LABORATORY STUDIES: While she was in the hospital, she had laboratory studies, the details of which can be found in the laboratory section of her chart. HOSPITAL COURSE: After admission, she was placed on bed rest, started on intravenous fluids. She was started on updrafts but she continued to have trouble breathing with bronchospasms and she requested to be seen by pulmonology. She is slowly being improved and is doing well and it was felt that she could be discharged on the . She will go home on updrafts, with Atrovent and Albuterol, Symbicort 160/4.5 two puffs b.i.d., Albuterol and Levaquin. She will be seen in the office in one or two days. FINAL DIAGNOSES: 1. Reactive airway disease. 2. Exacerbation of chronic obstructive pulmonary disease. 3. Schizophrenia. OPERATIONS: None. CONSULTATIONS: Pulmonology. She is improved. ARLYN
== END 2017-03-24 18:39 | disposition home or self-care (01) | DRG 191 ==
LOC: EC 13:12 → 6SEL 15:28 → 4MS4W 03-18 10:37
PROVIDERS: ADMIT Family Medicine; ATTEND Family Medicine
DX: J44.0 Chronic obstructive pulmonary disease with (acute) lower respiratory infection (principal); J98.11 Atelectasis; F20.9 Schizophrenia, unspecified; I10 Essential (primary) hypertension; J44.1 Chronic obstructive pulmonary disease with (acute) exacerbation; J40 Bronchitis, not specified as acute or chronic; T36.4X5A Adverse effect of tetracyclines, initial encounter; J45.20 Mild intermittent asthma, uncomplicated; R22.0 Localized swelling, mass and lump, head; R22.1 Localized swelling, mass and lump, neck; F39 Unspecified mood [affective] disorder; E78.5 Hyperlipidemia, unspecified; Z79.51 Long term (current) use of inhaled steroids; Z79.899 Other long term (current) drug therapy; Z87.891 Personal history of nicotine dependence; Z82.5 Family history of asthma and other chronic lower respiratory diseases
CPT/HCPCS: 36415; 71020; 80053; 82550; 82553; 84484; 85025; 85610; 85730; 93005; 94640; 94760; 96361; 96374; 96375; 99285

== ENCOUNTER → 2017-09-26 | Outpatient (CLI) | payer MEDICARE ==
--- NOTE | 2017-09-26 11:12 | MM ---
Reason for exam: additional evaluation requested from prior study. Last mammogram was performed 1 year ago. History: Patient is postmenopausal. Benign US biopsy breast VAD LT of the left breast, January 28, 2015. Benign US biopsy breast add'l VAD LT of the left breast, January 28, 2015. Benign US RT VAD breast biopsy of the right breast, July 30, 2013. Benign US RT VAD breast biopsy of the right breast, July 30, 2013. Benign US RT VAD breast biopsy of the right breast, July 30, 2013. Benign US LT VAD breast biopsy of the left breast, July 30, 2013. Benign right breast aspiration of the right breast, July 25, 2012. Benign right breast aspiration additional of the right breast, July 25, 2012. Benign US right guided mammotome of the right breast, November 08, 2005. Benign excisional biopsy of the left breast, November 22, 1998. Stereotactic core biopsy of the left breast, November 17, 1998. Took estrogen for 1 year beginning at age 51. Physical Findings: Nurse Summary: 0.5cm nodule in the right breast at 6 o'clock and a 0.5cm nodule in the left breast at 11 o'clock (nurse mj). MG 3D Diag Mammo W/Cad LEENA Bilateral CC and MLO view(s) were taken. Prior study comparison: September 25, 2016, right breast MG 3d diag mammo w/cad RT. March 20, 2016, bilateral MG 3d diag mammo w/cad LEENA. The breast tissue is extremely dense which could obscure a lesion on mammography. Punctate and microcalcifications bilaterally. There is chronic nodularity bilaterally. These results were verbally communicated with the patient and result sheet given to the patient on 09/26/17. ASSESSMENT: Incomplete: need additional imaging evaluation, BI-RAD 0 RECOMMENDATION: Ultrasound of both breasts. (at palpable)
--- NOTE | 2017-09-26 11:13 | USB ---
Reason for exam: additional evaluation requested from abnormal screening. History: Patient is postmenopausal. Benign US biopsy breast VAD LT of the left breast, January 28, 2015. Benign US biopsy breast add'l VAD LT of the left breast, January 28, 2015. Benign US RT VAD breast biopsy of the right breast, July 30, 2013. Benign US RT VAD breast biopsy of the right breast, July 30, 2013. Benign US RT VAD breast biopsy of the right breast, July 30, 2013. Benign US LT VAD breast biopsy of the left breast, July 30, 2013. Benign right breast aspiration of the right breast, July 25, 2012. Benign right breast aspiration additional of the right breast, July 25, 2012. Benign US right guided mammotome of the right breast, November 08, 2005. Benign excisional biopsy of the left breast, November 22, 1998. Stereotactic core biopsy of the left breast, November 17, 1998. Took estrogen for 1 year beginning at age 51. US Breast Limited BILAT Right breast ultrasound demonstrates no cystic or solid lesion seen. Left breast ultrasound demonstrates ductal ectasia. These results were verbally communicated with the patient and result sheet given to the patient on 09/26/17. ASSESSMENT: Benign, BI-RAD 2 RECOMMENDATION: Routine screening mammogram of both breasts in 1 year. Manage patient on a clinical basis.
== END | disposition home or self-care (01) ==
LOC: RADMAMWWP 08:42
PROVIDERS: ATTEND Internal Medicine Hematology & Oncology
DX: R92.8 Other abnormal and inconclusive findings on diagnostic imaging of breast (principal)
CPT/HCPCS: 77066; 76642; G0279

== ENCOUNTER 2017-10-18 23:13 | Emergency (ER) | payer MEDICARE ==
[2017-10-18] MEDS ORDERED: IPRATROPIUM-ALBUTEROL 3 ML NEB INHALATION STA (23:25)
[2017-10-18] MEDS ORDERED: methylPREDNISolone SOD SUCCI 125 MG/2 ML VIAL IM ONE (23:25)
--- NOTE | 2017-10-18 23:34 | ED ---
SOB HPI - General Chief Complaint: Shortness of Breath Stated Complaint: MAYNOR Time Seen by Provider: 10/18/17 23:18 Source: patient Mode of arrival: ambulatory Limitations: no limitations - History of Present Illness Initial Comments: This is a 61-year-old female who presents emergency department for shortness of breath. She states that it's been going on for about the last week however she did get treated with steroids and antibiotics last week and improved. It then got worse again today. She went to her doctor's office today who did not prescribe her anything. She states that tonight she felt very short of breath with exertion so she decided come emergency department. She does admit to feeling she has to cough something up but nothing come up. She has been using her home inhalers without any relief. She denies any chest pain. No recent travel or surgeries. No leg swelling. She does have a history of smoking but quit in 2009. No other acute complaints. - Related Data Home Medications Medication Instructions Recorded Confirmed Budesonide-Formot 160-4.5 Mcg 2 puff INHALATION RT-BID 11/04/15 10/18/17 [Symbicort 160-4.5 Mcg Inhaler] Paliperidone IM [Invega Sustenna] 156 mg IM Q30D 12/12/15 10/18/17 Furosemide [Lasix] 20 mg PO DAILY 01/09/16 10/18/17 Albuterol Nebulized [Ventolin 2.5 mg INHALATION RT-QID PRN 03/16/17 10/18/17 Nebulized] Ipratropium Nebulized [Atrovent 0.5 mg INHALATION RT-QID PRN 03/16/17 10/18/17 Nebulized] Lisinopril [Prinivil] 20 mg PO DAILY 03/16/17 10/18/17 Montelukast [Singulair] 10 mg PO DAILY 03/17/17 10/18/17 Aspirin [Adult Low Dose Aspirin EC] 81 mg PO HS 10/18/17 10/18/17 Atorvastatin Calcium [Lipitor] 5 mg PO HS 10/18/17 10/18/17 Ubidecarenone [Co Q-10] 100 mg PO DAILY 10/18/17 10/18/17 Previous Rx's Medication Instructions Recorded Levofloxacin [Levaquin] 500 mg PO DAILY #7 tab 10/19/17 predniSONE 50 mg PO DAILY #5 tab 10/19/17 Allergies Allergy/AdvReac Type Severity Reaction Status Date / Time Milk Containing Products Allergy Unknown Swelling Verified 10/18/17 23:43 [Dairy] doxycycline Allergy Anaphylaxis Verified 10/18/17 23:43 Review of Systems ROS Statement: Those systems with pertinent positive or pertinent negative responses have been documented in the HPI. ROS Other: All systems not noted in ROS Statement are negative. Past Medical History Past Medical History: Asthma, COPD, Hyperlipidemia, Hypertension Additional Past Medical History / Comment(s): emphysema. History of Any Multi-Drug Resistant Organisms: None Reported Past Surgical History: Adenoidectomy, Appendectomy, Back Surgery, Section, Hysterectomy, Tonsillectomy Past Anesthesia/Blood Transfusion Reactions: No Reported Reaction Past Psychological History: Schizophrenia Smoking Status: Former smoker Past Alcohol Use History: None Reported Past Drug Use History: None Reported - Past Family History Mother Family Medical History: COPD General Exam - General Exam Comments Initial Comments: Constitutional: Awake alert Appears comfortable Head: Normocephalic atraumatic Eyes: no conjunctival injection No scleral icterus EOMI Neck: No JVD Supple Heart: Regular rate rhythm normal S1-S2 no murmurs Lungs: Decreased breath sounds bilaterally No wheezing No rales Abdomen: Soft nondistended nontender Extremities: Non edematous DP pulses intact Radial pulses intact Neuro: A&Ox3 No focal neurologic deficits Psych: Appropriate mood and affect Limitations: no limitations Course Vital Signs 10/18/17 10/18/17 10/18/17 23:13 23:32 23:42 Temperature 98.3 F Pulse Rate 85 83 80 Respiratory 18 Rate Blood Pressure 130/65 O2 Sat by Pulse 99 Oximetry - Reevaluation(s) Reevaluation #1: 10/18/17 23:35 EKG showing normal sinus rhythm with a rate of 81. No abnormal ST segment changes or T-wave inversions. QTC 429. Other intervals normal. No ectopy. Medical Decision Making - Medical Decision Making This is a 61-year-old female with a history of bronchitis who presents emergent department for shortness of breath. The patient was given a DuoNeb treatment and felt much improved. She had no desaturations while in the emergency department even after ambulation. Chest x-ray was unremarkable. EKG was normal. At this time I feel the patient is likely suffering from bronchitis. Going to start her on Levaquin and prednisone. She has seen Dr. Wynn in the past and told to make an appointment. She can return if she has worsening breathing, cough, fevers or chills, or any other concerning symptoms. All questions were answered. Disposition Clinical Impression: Bronchitis Disposition: HOME SELF-CARE Condition: Stable Instructions: Acute Bronchitis (ED) Prescriptions: Levofloxacin [Levaquin] 500 mg PO DAILY #7 tab predniSONE 50 mg PO DAILY #5 tab Referrals: Ariel Corley MD [Primary Care Provider] - 1-2 days Tashi Gutierrez MD [STAFF PHYSICIAN] - 1-2 days
--- NOTE | 2017-10-19 00:11 | XR ---
EXAMINATION TYPE: XR chest 2V DATE OF EXAM: 10/19/2017 COMPARISON: 05/27/2017 HISTORY: Short of breath TECHNIQUE: Frontal and lateral views of the chest are obtained. FINDINGS: Heart and mediastinum appear normal. Lungs are clear of infiltrate. Costophrenic angles ar e clear. The bony thorax is intact. Pulmonary vascularity is normal. There is no sign of pleural effu mily. IMPRESSION: No active cardiopulmonary disease. No change.
[2017-10-19 00:39] VITALS: BP 100/56; PULSE 92; RESP 20; TEMP 97.9
== END 2017-10-19 00:39 | disposition home or self-care (01) ==
LOC: EC 23:13
DX: J40 Bronchitis, not specified as acute or chronic (principal); J44.9 Chronic obstructive pulmonary disease, unspecified; E78.5 Hyperlipidemia, unspecified; I10 Essential (primary) hypertension; F20.9 Schizophrenia, unspecified; Z87.891 Personal history of nicotine dependence; Z79.51 Long term (current) use of inhaled steroids; Z79.82 Long term (current) use of aspirin; Z79.899 Other long term (current) drug therapy; Z88.1 Allergy status to other antibiotic agents; Z91.011 Allergy to milk products; Z82.5 Family history of asthma and other chronic lower respiratory diseases
CPT/HCPCS: 94640; 93005; 71046; 99285; 96372; J2930

== ENCOUNTER → 2017-10-31 | Outpatient (CLI) | payer MEDICARE ==
--- NOTE | 2017-10-31 11:58 | ECHOS ---
STRESS ECHOCARDIOGRAM DATE OF SERVICE: 10/31/2017 INDICATIONS: MEDICATIONS: Lisinopril, prednisone. BASELINE HEART RATE: 79 BASELINE BLOOD PRESSURE: 123/63 MAXIMUM HEART RATE: 142 MAXIMUM BLOOD PRESSURE: 133/68 85% MPHR: 133 100% MPHR: 157 METS: 8.5 MAXIMUM STAGE REACHED: III TOTAL EXERCISE TIME: 7 minutes CLINICAL INFORMATION: Baseline EKG revealed normal sinus rhythm without significant ST-T changes. Patient walked for 7 minutes on the standard Davi protocol. Achieved a maximal heart rate of 142 beats per minute which is more than 85% of predicted maximal. She developed fatigue and shortness of breath. There was some baseline artifact. There was no evidence to suggest any ischemia by EKG criteria. There was no arrhythmia or angina. This is a negative stress test with fair exercise capacity. Baseline echo images revealed normal wall motion and wall thickening of all segments. At peak exercise, there was good augmentation of left ventricular wall motion and wall thickening of all segments suggesting that there is no evidence of stress-induced ischemia on this study. FINAL IMPRESSION: 1. By EKG criteria, this is a negative stress test with fair exercise capacity. 2. Normal stress echocardiogram. MMODL / IJN: [id number] /
== END | disposition home or self-care (01) ==
LOC: RADNMMAIN 09:51
PROVIDERS: ATTEND Family Medicine
DX: R94.31 Abnormal electrocardiogram [ECG] [EKG] (principal); Z88.1 Allergy status to other antibiotic agents
CPT/HCPCS: 93017; 93350

== ENCOUNTER 2017-11-15 14:02 | Emergency (ER) | payer MEDICARE ==
[2017-11-15] MEDS ORDERED: IPRATROPIUM-ALBUTEROL 3 ML NEB INHALATION STA (14:56)
--- NOTE | 2017-11-15 15:09 | ED ---
URI HPI - General Chief Complaint: Upper Respiratory Infection Stated Complaint: MAYNOR Time Seen by Provider: 11/15/17 14:51 Source: patient, RN notes reviewed Mode of arrival: ambulatory Limitations: no limitations - History of Present Illness Initial Comments: This is a 62-year-old female with a history of COPD who states she's had shortness breath or past couple days including rhinorrhea and cough with clear phlegm. She is return nebulizer treatment this morning without much improvement. Of note she recently was treated for bronchitis and finished her steroids and antibiotics by week ago. She has any chest pain fevers chills sweats nausea vomiting or other symptoms. MD Complaint: cough, rhinorrhea, nasal congestion - Related Data Home Medications Medication Instructions Recorded Confirmed Budesonide-Formot 160-4.5 Mcg 2 puff INHALATION RT-BID 11/04/15 11/15/17 [Symbicort 160-4.5 Mcg Inhaler] Paliperidone IM [Invega Sustenna] 156 mg IM Q30D 12/12/15 11/15/17 Furosemide [Lasix] 20 mg PO DAILY 01/09/16 11/15/17 Albuterol Nebulized [Ventolin 2.5 mg INHALATION RT-QID PRN 03/16/17 11/15/17 Nebulized] Ipratropium Nebulized [Atrovent 0.5 mg INHALATION RT-QID PRN 03/16/17 11/15/17 Nebulized] Lisinopril [Prinivil] 20 mg PO DAILY 03/16/17 11/15/17 Aspirin [Adult Low Dose Aspirin EC] 81 mg PO HS 10/18/17 11/15/17 Atorvastatin Calcium [Lipitor] 5 mg PO HS 10/18/17 11/15/17 Ubidecarenone [Co Q-10] 100 mg PO DAILY 10/18/17 11/15/17 Raloxifene [Evista] 60 mg PO DAILY 11/15/17 11/15/17 Previous Rx's Medication Instructions Recorded methylPREDNISolone Dose Pack 4 mg PO DIRECTED #21 package 11/15/17 [Medrol Dose Pack] Allergies Allergy/AdvReac Type Severity Reaction Status Date / Time Milk Containing Products Allergy Unknown Swelling Verified 11/15/17 14:41 [Dairy] doxycycline Allergy Anaphylaxis Verified 11/15/17 14:41 Review of Systems ROS Statement: Those systems with pertinent positive or pertinent negative responses have been documented in the HPI. ROS Other: All systems not noted in ROS Statement are negative. Past Medical History Past Medical History: Asthma, COPD, Hyperlipidemia, Hypertension Additional Past Medical History / Comment(s): emphysema. History of Any Multi-Drug Resistant Organisms: None Reported Past Surgical History: Adenoidectomy, Appendectomy, Back Surgery, Section, Hysterectomy, Tonsillectomy Past Anesthesia/Blood Transfusion Reactions: No Reported Reaction Past Psychological History: Schizophrenia Smoking Status: Former smoker Past Alcohol Use History: Occasional Past Drug Use History: None Reported - Past Family History Mother Family Medical History: COPD General Exam - General Exam Comments Initial Comments: This a well-developed well-nourished awake alert oriented 3 female Limitations: no limitations General appearance: alert, in no apparent distress Head exam: Present: atraumatic, normocephalic, normal inspection Eye exam: Present: normal appearance, PERRL, EOMI. Absent: scleral icterus, conjunctival injection, periorbital swelling ENT exam: Present: normal oropharynx, mucous membranes moist, TM's normal bilaterally, other (Boggy swollen nasal mucosa) Neck exam: Present: normal inspection. Absent: tenderness, meningismus, lymphadenopathy Respiratory exam: Present: decreased breath sounds Cardiovascular Exam: Present: regular rate, normal rhythm, normal heart sounds. Absent: systolic murmur, diastolic murmur, rubs, gallop, clicks GI/Abdominal exam: Present: soft, normal bowel sounds. Absent: distended, tenderness, guarding, rebound, rigid Extremities exam: Present: normal inspection, full ROM, normal capillary refill. Absent: tenderness, pedal edema, joint swelling, calf tenderness Back exam: Present: normal inspection Neurological exam: Present: alert, oriented X3, CN II-XII intact Psychiatric exam: Present: normal affect, normal mood Skin exam: Present: warm, dry, intact, normal color. Absent: rash Course Vital Signs 11/15/17 11/15/17 11/15/17 14:23 15:11 15:18 Temperature 98.5 F Pulse Rate 87 75 78 Respiratory 22 16 16 Rate Blood Pressure 115/78 O2 Sat by Pulse 99 Oximetry Medical Decision Making - Medical Decision Making Reevaluation patient reveals that she feels much improved. She will be discharged with a course of steroids she'll get her first dose in the emergency department. She does have adequate nebulizer medication at home. - Lab Data Lab Results 11/15/17 Range/Units 14:55 Influenza Type A RNA Not Detected (Not Detectd) Influenza Type B (PCR) Not Detected (Not Detectd) - Radiology Data Radiology results: report reviewed (I did review the imaging and report no acute findings.), image reviewed Disposition Clinical Impression: COPD with exacerbation, Upper respiratory infection Disposition: HOME SELF-CARE Condition: Good Instructions: Upper Respiratory Infection (ED), COPD (Chronic Obstructive Pulmonary Disease) (ED) Prescriptions: methylPREDNISolone Dose Pack [Medrol Dose Pack] 4 mg PO DIRECTED #21 package Referrals: Ariel Corley MD [Primary Care Provider] - 1-2 days
--- NOTE | 2017-11-15 15:15 | XR ---
EXAMINATION TYPE: XR chest 2V DATE OF EXAM: 11/15/2017 COMPARISON: 10/19/2017 HISTORY: 62-year-old female with shortness of breath and cough TECHNIQUE: PA and lateral views FINDINGS: Heart normal size. Atherosclerotic arch calcifications. Strandy right basilar atelectasis. No consoli dation or pleural effusion otherwise seen. 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 IMPRESSION: Some strandy right basilar atelectasis. No acute process seen.
[2017-11-15] MEDS ORDERED: predniSONE 50 MG TAB PO STA (15:34)
[2017-11-15 15:46] VITALS: BP 120/82; PULSE 82; RESP 17; TEMP 98.7
== END 2017-11-15 15:45 | disposition home or self-care (01) ==
LOC: EC 14:02
DX: J44.1 Chronic obstructive pulmonary disease with (acute) exacerbation (principal); J06.9 Acute upper respiratory infection, unspecified; E78.5 Hyperlipidemia, unspecified; I10 Essential (primary) hypertension; F20.9 Schizophrenia, unspecified; Z87.891 Personal history of nicotine dependence; Z79.4 Long term (current) use of insulin; Z79.899 Other long term (current) drug therapy; Z79.82 Long term (current) use of aspirin; Z88.1 Allergy status to other antibiotic agents; Z91.011 Allergy to milk products
CPT/HCPCS: 94640; 87502; 71046; 99284; J7512

== ENCOUNTER 2018-03-11 17:43 | Emergency (ER) | payer MEDICARE ==
[2018-03-11 17:47] VITALS: RESP 16; TEMP 97.8
--- NOTE | 2018-03-11 18:25 | ED ---
General Adult HPI - General Chief complaint: Chest Pain Stated complaint: chest pain Time Seen by Provider: 03/11/18 17:48 Source: patient, RN notes reviewed, old records reviewed Mode of arrival: ambulatory Limitations: no limitations - History of Present Illness Initial comments: This is a 62-year-old female the ER for evaluation history of high blood in for evaluation of chest pain. Patient has no significant history of [place]. Patient states she does have anterior chest pain left-sided pulsating chest pain. Patient has no fevers no cough no congestion - Related Data Home Medications Medication Instructions Recorded Confirmed Budesonide-Formot 160-4.5 Mcg 2 puff INHALATION RT-BID 11/04/15 03/11/18 [Symbicort 160-4.5 Mcg Inhaler] Paliperidone IM [Invega Sustenna] 156 mg IM Q30D 12/12/15 03/11/18 Furosemide [Lasix] 20 mg PO DAILY 01/09/16 03/11/18 Albuterol Nebulized [Ventolin 2.5 mg INHALATION RT-QID PRN 03/16/17 03/11/18 Nebulized] Ipratropium Nebulized [Atrovent 0.5 mg INHALATION RT-QID PRN 03/16/17 03/11/18 Nebulized] Lisinopril [Prinivil] 20 mg PO DAILY 03/16/17 03/11/18 Aspirin [Adult Low Dose Aspirin EC] 81 mg PO HS 10/18/17 03/11/18 Atorvastatin Calcium [Lipitor] 5 mg PO HS 10/18/17 03/11/18 Ubidecarenone [Co Q-10] 100 mg PO DAILY 10/18/17 03/11/18 Raloxifene [Evista] 60 mg PO DAILY 11/15/17 03/11/18 Allergies Allergy/AdvReac Type Severity Reaction Status Date / Time Milk Containing Products Allergy Unknown Swelling Verified 03/11/18 18:23 [Dairy] doxycycline Allergy Anaphylaxis Verified 03/11/18 18:23 Review of Systems ROS Statement: Those systems with pertinent positive or pertinent negative responses have been documented in the HPI. ROS Other: All systems not noted in ROS Statement are negative. Past Medical History Past Medical History: Asthma, COPD, Hyperlipidemia, Hypertension Additional Past Medical History / Comment(s): emphysema. History of Any Multi-Drug Resistant Organisms: None Reported Past Surgical History: Adenoidectomy, Appendectomy, Back Surgery, Section, Hysterectomy, Tonsillectomy Past Anesthesia/Blood Transfusion Reactions: No Reported Reaction Past Psychological History: Schizophrenia Smoking Status: Former smoker Past Alcohol Use History: Occasional Past Drug Use History: None Reported - Past Family History Mother Family Medical History: COPD General Exam Limitations: no limitations General appearance: alert, in no apparent distress Head exam: Present: atraumatic, normocephalic, normal inspection Eye exam: Present: normal appearance, PERRL, EOMI. Absent: scleral icterus, conjunctival injection, periorbital swelling ENT exam: Present: normal exam, mucous membranes moist Neck exam: Present: normal inspection. Absent: tenderness, meningismus, lymphadenopathy Respiratory exam: Present: normal lung sounds bilaterally. Absent: respiratory distress, wheezes, rales, rhonchi, stridor Cardiovascular Exam: Present: regular rate, normal rhythm, normal heart sounds. Absent: systolic murmur, diastolic murmur, rubs, gallop, clicks GI/Abdominal exam: Present: soft, normal bowel sounds. Absent: distended, tenderness, guarding, rebound, rigid Extremities exam: Present: normal inspection, full ROM, normal capillary refill. Absent: tenderness, pedal edema, joint swelling, calf tenderness Back exam: Present: normal inspection Neurological exam: Present: alert, oriented X3, CN II-XII intact Psychiatric exam: Present: normal affect, normal mood Skin exam: Present: warm, dry, intact, normal color. Absent: rash Course Vital Signs 03/11/18 03/11/18 03/11/18 17:45 18:24 19:10 Temperature 97.8 F Pulse Rate 91 87 Pulse Rate [ 72 Sisal Picker ] Respiratory 16 16 Rate Blood Pressure 133/88 107/71 O2 Sat by Pulse 95 98 Oximetry 03/11/18 20:43 Temperature Pulse Rate 77 Pulse Rate [ Sisal Picker ] Respiratory 16 Rate Blood Pressure 121/70 O2 Sat by Pulse 100 Oximetry - Reevaluation(s) Reevaluation #1: Patient discussed at length need to stay in hospital, patient refused EKG Findings - EKG Comments: EKG Findings:: EKG shows sinus rhythm rate of 80, ME 160, QRS 74, QTc 438 Medical Decision Making - Medical Decision Making 62 female the ER for evasive chest pain. Patient's refusing to stay in hospital despite risk factors for heart disease. Patient has negative troponin , negative EKG - Lab Data Result diagrams: 03/11/18 18:20 03/11/18 18:20 Lab Results 03/11/18 03/11/18 03/11/18 Range/Units 18:20 18:20 18:20 WBC 9.0 (3.8-10.6) k/uL RBC 4.41 (3.80-5.40) m/uL Hgb 13.6 (11.4-16.0) gm/dL Hct 41.3 (34.0-46.0) % MCV 93.7 (80.0-100.0) fL MCH 30.9 (25.0-35.0) pg MCHC 33.0 (31.0-37.0) g/dL RDW 12.3 (11.5-15.5) % Plt Count 322 (150-450) k/uL Neutrophils % 69 % Lymphocytes % 19 % Monocytes % 7 % Eosinophils % 2 % Basophils % 1 % Neutrophils # 6.2 (1.3-7.7) k/uL Lymphocytes # 1.7 (1.0-4.8) k/uL Monocytes # 0.7 (0-1.0) k/uL Eosinophils # 0.2 (0-0.7) k/uL Basophils # 0.0 (0-0.2) k/uL PT (9.0-12.0) sec INR (<1.2) APTT (22.0-30.0) sec Sodium 135 L (137-145) mmol/L Potassium 3.9 (3.5-5.1) mmol/L Chloride 98 (98-107) mmol/L Carbon Dioxide 27 (22-30) mmol/L Anion Gap 10 mmol/L BUN 19 H (7-17) mg/dL Creatinine 0.80 (0.52-1.04) mg/dL Est GFR (CKD-EPI)AfAm >90 (>60 ml/min/1.73 sqM) Est GFR (CKD-EPI)NonAf 79 (>60 ml/min/1.73 sqM) Glucose 91 (74-99) mg/dL Calcium 9.2 (8.4-10.2) mg/dL Magnesium 1.9 (1.6-2.3) mg/dL Total Bilirubin 0.2 (0.2-1.3) mg/dL AST 29 (14-36) U/L ALT 35 (9-52) U/L Alkaline Phosphatase 40 (38-126) U/L Total Creatine Kinase 215 H (30-135) U/L CK-MB (CK-2) 3.2 H* (0.0-2.4) ng/mL CK-MB (CK-2) Rel Index 1.5 Troponin I <0.012 (0.000-0.034) ng/mL Total Protein 6.1 L (6.3-8.2) g/dL Albumin 4.0 (3.5-5.0) g/dL 03/11/18 Range/Units 18:20 WBC (3.8-10.6) k/uL RBC (3.80-5.40) m/uL Hgb (11.4-16.0) gm/dL Hct (34.0-46.0) % MCV (80.0-100.0) fL MCH (25.0-35.0) pg MCHC (31.0-37.0) g/dL RDW (11.5-15.5) % Plt Count (150-450) k/uL Neutrophils % % Lymphocytes % % Monocytes % % Eosinophils % % Basophils % % Neutrophils # (1.3-7.7) k/uL Lymphocytes # (1.0-4.8) k/uL Monocytes # (0-1.0) k/uL Eosinophils # (0-0.7) k/uL Basophils # (0-0.2) k/uL PT 9.7 (9.0-12.0) sec INR 1.0 (<1.2) APTT 23.0 (22.0-30.0) sec Sodium (137-145) mmol/L Potassium (3.5-5.1) mmol/L Chloride (98-107) mmol/L Carbon Dioxide (22-30) mmol/L Anion Gap mmol/L BUN (7-17) mg/dL Creatinine (0.52-1.04) mg/dL Est GFR (CKD-EPI)AfAm (>60 ml/min/1.73 sqM) Est GFR (CKD-EPI)NonAf (>60 ml/min/1.73 sqM) Glucose (74-99) mg/dL Calcium (8.4-10.2) mg/dL Magnesium (1.6-2.3) mg/dL Total Bilirubin (0.2-1.3) mg/dL AST (14-36) U/L ALT (9-52) U/L Alkaline Phosphatase (38-126) U/L Total Creatine Kinase (30-135) U/L CK-MB (CK-2) (0.0-2.4) ng/mL CK-MB (CK-2) Rel Index Troponin I (0.000-0.034) ng/mL Total Protein (6.3-8.2) g/dL Albumin (3.5-5.0) g/dL - Radiology Data Radiology results: report reviewed (Chest x-rays negative), image reviewed Disposition Clinical Impression: Chest pain Disposition: HOME SELF-CARE Instructions: Chest Pain (ED) Is patient prescribed a controlled substance at d/c from ED?: No Referrals: Ariel Corley MD [Primary Care Provider] - 1-2 days
--- NOTE | 2018-03-11 18:40 | XR ---
EXAMINATION TYPE: XR chest 2V DATE OF EXAM: 03/11/2018 COMPARISON: 11/15/2017 HISTORY: Chest pain TECHNIQUE: Frontal and lateral views of the chest are obtained. FINDINGS: There is no focal air space opacity, pleural effusion, or pneumothorax seen. The cardiac silhouette size is within normal limits. The osseous structures are intact. Pulmonary hyperinflatio n and chronic interstitial prominence likely relates underlying COPD. Mild multilevel degenerative ch anges of the thoracic spine are noted. IMPRESSION: No acute cardiopulmonary process. Findings suggesting underlying COPD.
[2018-03-11 18:47] LABS: Basophils % (A) 1 %; Eosinophils # (A) 0.2 k/uL (0-0.7); Eosinophils % (A) 2 %; HCT 41.3 % (34.0-46.0); HGB 13.6 gm/dL (11.4-16.0); Lymphocytes # (A) 1.7 k/uL (1.0-4.8); Lymphocytes % (A) 19 %; MCH 30.9 pg (25.0-35.0); MCV 93.7 fL (80.0-100.0); Mean Platelet Volume 6.3; Monocytes # (A) 0.7 k/uL (0-1.0); Monocytes % (A) 7 %; Neutrophils # (A) 6.2 k/uL (1.3-7.7); Neutrophils % (A) 69 %; Platelet Count 322 k/uL (150-450); RBC 4.41 m/uL (3.80-5.40); RDW 12.3 % (11.5-15.5)
[2018-03-11 18:56] LABS: ALT 35 U/L (9-52); AST 29 U/L (14-36); Alkaline Phosphatase 40 U/L (38-126); Anion Gap 10 mmol/L; Blood Urea Nitrogen 19 mg/dL (7-17); Calcium 9.2 mg/dL (8.4-10.2); Carbon Dioxide 27 mmol/L (22-30); Chloride 98 mmol/L (98-107); Glucose 91 mg/dL (74-99); Magnesium 1.9 mg/dL (1.6-2.3); Potassium 3.9 mmol/L (3.5-5.1); Sodium 135 mmol/L (137-145); Total Bilirubin 0.2 mg/dL (0.2-1.3); Total Protein 6.1 g/dL (6.3-8.2)
[2018-03-11 18:58] LABS: Prothrombin Time 9.7 sec (9.0-12.0)
[2018-03-11 19:09] LABS: Creatine Kinase 215 U/L (30-135)
[2018-03-11 19:22] LABS: Troponin I <0.012 ng/mL (0.000-0.034)
[2018-03-11 19:28] LABS: Creatine Kinase MB 3.2 ng/mL (0.0-2.4)
[2018-03-11 20:45] VITALS: BP 121/70; PULSE 77
== END 2018-03-11 20:43 | disposition home or self-care (01) ==
LOC: EC 17:43
DX: R07.9 Chest pain, unspecified (principal); J44.9 Chronic obstructive pulmonary disease, unspecified; E78.5 Hyperlipidemia, unspecified; I10 Essential (primary) hypertension; F20.9 Schizophrenia, unspecified; Z87.891 Personal history of nicotine dependence; Z79.51 Long term (current) use of inhaled steroids; Z79.82 Long term (current) use of aspirin; Z79.899 Other long term (current) drug therapy; Z91.011 Allergy to milk products; Z88.1 Allergy status to other antibiotic agents
CPT/HCPCS: 36415; 71046; 80053; 82550; 82553; 83735; 84484; 85025; 85610; 85730; 93005; 99285

== ENCOUNTER 2018-08-29 11:20 | Emergency (ER) | payer MEDICARE ==
[2018-08-29 11:30] VITALS: BP 127/84; PULSE 89; RESP 18; TEMP 98
--- NOTE | 2018-08-29 12:01 | ED ---
Eye Problem HPI - General Chief complaint: Eye Problems Stated complaint: poss pink eye Time Seen by Provider: 08/29/18 11:31 Source: patient, RN notes reviewed, old records reviewed Mode of arrival: ambulatory Limitations: no limitations - History of Present Illness Initial comments: This is a 62 -year-old female the ER with right eye redness and drainage. Patient is had 3 days of right eye redness and drainage some irritation and itching. Patient rubbing her eye excessively no change in vision. Patient was unable to get in to see her family doctor until next week so presents emergency department today. Again denies any change in vision, is complaining of drainage especially in the morning from her right eye as well as redness MD chief complaint: eye redness (Right) -: days(s) (2) Onset Description: gradual Location: right eye Place: home If Injury: none Eye Symptoms: redness, itching Severity: mild Severity scale (1-10): 2 Consistency: constant Associated Symptoms: none Treatments Prior to Arrival: none - Related Data Home Medications Medication Instructions Recorded Confirmed Budesonide-Formot 160-4.5 Mcg 2 puff INHALATION RT-BID 11/04/15 08/29/18 [Symbicort 160-4.5 Mcg Inhaler] Furosemide [Lasix] 20 mg PO DAILY 01/09/16 08/29/18 Albuterol Nebulized [Ventolin 2.5 mg INHALATION RT-QID PRN 03/16/17 08/29/18 Nebulized] Ipratropium Nebulized [Atrovent 0.5 mg INHALATION RT-QID PRN 03/16/17 08/29/18 Nebulized] Lisinopril [Prinivil] 20 mg PO DAILY 03/16/17 08/29/18 Aspirin [Adult Low Dose Aspirin EC] 81 mg PO HS 10/18/17 08/29/18 Atorvastatin Calcium [Lipitor] 5 mg PO HS 10/18/17 08/29/18 Ubidecarenone [Co Q-10] 100 mg PO DAILY 10/18/17 08/29/18 Raloxifene [Evista] 60 mg PO DAILY 11/15/17 08/29/18 Paliperidone Palmitate [Invega 78 mg IM Q30D 08/29/18 08/29/18 Sustenna] Previous Rx's Medication Instructions Recorded Polymyxin B-Trimeth Sulf Ophth 2 drops RIGHT EYE Q4H #1 tube 08/29/18 [Polytrim Opthalmic] Allergies Allergy/AdvReac Type Severity Reaction Status Date / Time Milk Containing Products Allergy Unknown Swelling Verified 08/29/18 11:57 [Dairy] doxycycline Allergy Anaphylaxis Verified 08/29/18 11:57 Review of Systems ROS Statement: Those systems with pertinent positive or pertinent negative responses have been documented in the HPI. ROS Other: All systems not noted in ROS Statement are negative. Past Medical History Past Medical History: Asthma, COPD, Hyperlipidemia, Hypertension Additional Past Medical History / Comment(s): emphysema. History of Any Multi-Drug Resistant Organisms: None Reported Past Surgical History: Adenoidectomy, Appendectomy, Back Surgery, Section, Hysterectomy, Tonsillectomy Past Anesthesia/Blood Transfusion Reactions: No Reported Reaction Past Psychological History: Schizophrenia Smoking Status: Former smoker Past Alcohol Use History: Occasional Past Drug Use History: None Reported - Past Family History Mother Family Medical History: COPD General Exam Limitations: no limitations General appearance: alert, in no apparent distress Head exam: Present: atraumatic, normocephalic, normal inspection Eye exam: Present: normal appearance, PERRL, EOMI, conjunctival injection ( Right eye mild). Absent: scleral icterus, periorbital swelling ENT exam: Present: normal exam, mucous membranes moist Neck exam: Present: normal inspection. Absent: tenderness, meningismus, lymphadenopathy Respiratory exam: Present: normal lung sounds bilaterally. Absent: respiratory distress, wheezes, rales, rhonchi, stridor Cardiovascular Exam: Present: regular rate, normal rhythm, normal heart sounds. Absent: systolic murmur, diastolic murmur, rubs, gallop, clicks GI/Abdominal exam: Present: soft, normal bowel sounds. Absent: distended, tenderness, guarding, rebound, rigid Extremities exam: Present: normal inspection, full ROM, normal capillary refill. Absent: tenderness, pedal edema, joint swelling, calf tenderness Back exam: Present: normal inspection Neurological exam: Present: alert, oriented X3, CN II-XII intact Psychiatric exam: Present: normal affect, normal mood Skin exam: Present: warm, dry, intact, normal color. Absent: rash Course Vital Signs 08/29/18 11:28 Temperature 98 F Pulse Rate 89 Respiratory 18 Rate Blood Pressure 127/84 O2 Sat by Pulse 99 Oximetry Medical Decision Making - Medical Decision Making 62 female the ER with right eye conjunctivitis, likely bacterial with drainage, will be placed on antibiotic eyedrops to follow-up with primary care next week Disposition Clinical Impression: Bacterial conjunctivitis Disposition: HOME SELF-CARE Condition: Good Instructions: Conjunctivitis (ED) Prescriptions: Polymyxin B-Trimeth Sulf Ophth [Polytrim Opthalmic] 2 drops RIGHT EYE Q4H #1 tube Is patient prescribed a controlled substance at d/c from ED?: No Referrals: Ariel Corley MD [Primary Care Provider] - 1-2 days
== END 2018-08-29 12:12 | disposition home or self-care (01) ==
LOC: EC 11:20
DX: H10.9 Unspecified conjunctivitis (principal); J44.9 Chronic obstructive pulmonary disease, unspecified; E78.5 Hyperlipidemia, unspecified; I10 Essential (primary) hypertension; F20.9 Schizophrenia, unspecified; Z87.891 Personal history of nicotine dependence; Z79.82 Long term (current) use of aspirin; Z79.51 Long term (current) use of inhaled steroids; Z79.899 Other long term (current) drug therapy; Z88.1 Allergy status to other antibiotic agents; Z91.011 Allergy to milk products
CPT/HCPCS: 99283

== ENCOUNTER → 2018-11-17 | Outpatient (CLI) | payer MEDICARE ==
--- NOTE | 2018-11-18 09:16 | CT ---
EXAMINATION TYPE: CT angio chest DATE OF EXAM: 11/17/2018 COMPARISON: 08/09/2016 HISTORY: chest pain, elevated d-dimer CT DLP: 316 mGycm. Automated Exposure Control for Dose Reduction was Utilized. CONTRAST: CTA scan of the thorax is performed with IV Contrast, patient injected with 58cc mL of Isovue 370, pu lmonary embolism protocol. MIP Images are created on CT scanner and reviewed. FINDINGS: LUNGS: Moderate centrilobular and paraseptal emphysematous changes are present throughout. Few scatte red areas of subsegmental atelectasis and pleural parenchymal bandlike scarring are seen within the l ungs. No suspicious pulmonary mass or focal consolidation. The lungs are grossly clear, there is no c oncerning parenchymal mass or nodule identified. There is no pleural effusion or pneumothorax seen. The tracheobronchial tree is patent. MEDIASTINUM: There is satisfactory enhancement of the pulmonary artery and its branches, there is no CT evidence for pulmonary embolism. No enlargement of the pulmonary arteries. Thoracic aorta is with in normal limits of size There are no greater than 1 cm hilar or mediastinal lymph nodes. No cardio megaly. Small pleural effusion measures simple fluid. No pericardial enhancement. OTHER: There are scattered subcentimeter too small to accurately characterize hepatic lesions however there is an ill-defined subcapsular hepatic lesion within segment 6 on series 5 image 123 for which further characterization is recommended. This measures approximately 9 mm. Colonic interposition of t he liver is also noted with moderate retained fecal debris. Very small hiatal hernia is seen. There i s slight malrotation of the kidneys with there are axis is oriented anteriorly. Too small to accurate ly characterize left lower pole renal lesion posteriorly is seen. Severe atherosclerosis is present o f the lower abdominal aorta and its visualized portion. Upper thoracic compression deformities are unchanged from 08/09/2016. Postsurgical change of the lumb ar spine is only partially visualized on the most inferior axial images. IMPRESSION: 1. No evidence of pulmonary embolus nor CT evidence of pulmonary arterial hypertension. No evidence o f aortic aneurysm. 2. Moderate pulmonary emphysema without suspicious pulmonary mass. 3. Ill-defined approximately 9 mm hepatic lesion for which full characterization with three-phase enh anced CT abdomen or MR is recommended.
== END | disposition home or self-care (01) ==
LOC: RADCTMAIN 17:29
PROVIDERS: ATTEND Family Medicine
DX: J43.9 Emphysema, unspecified (principal); Z88.1 Allergy status to other antibiotic agents
CPT/HCPCS: 71275; Q9967

== ENCOUNTER → 2018-11-24 | Outpatient (CLI) | payer MEDICARE ==
--- NOTE | 2018-11-24 14:02 | ECHOS ---
STRESS ECHOCARDIOGRAM INDICATIONS: Chest pain. MEDICATIONS: Lisinopril, Lipitor, Lasix, Evista. BASELINE HEART RATE: 88 BASELINE BLOOD PRESSURE: 111/66 MAXIMUM HEART RATE: 133 MAXIMUM BLOOD PRESSURE: 167/91 85% MPHR: 133 100% MPHR: 156 METS: 7.1 MAXIMUM STAGE REACHED: 2 TOTAL EXERCISE TIME: 6:00 CLINICAL INFORMATION: Baseline EKG revealed normal sinus rhythm without significant ST-T changes. Patient exercised on a standard Davi protocol for 6 minutes achieved a maximal heart rate of 133 beats per minute which is 85% of predicted maximal. She developed fatigue and shortness of breath but did not have any anginal symptoms. There was no arrhythmia. EKG did not reveal any ST-segment changes to indicate ischemia. By EKG criteria, this is a negative stress test with fair exercise capacity. Baseline echo images revealed normal wall motion and wall thickening of all segments. At peak exercise there was good augmentation of left and wall motion and wall thickening of all segments suggesting that there is no evidence of stress-induced ischemia on this study. IMPRESSION: 1. By EKG, this is a negative stress test with fair exercise capacity. 2. Normal stress echocardiogram. MMODL / IJN: [id number] /
== END ==
LOC: RADNMMAIN 08:39
PROVIDERS: ATTEND Family Medicine
DX: R07.9 Chest pain, unspecified (principal); R06.02 Shortness of breath; I25.10 Atherosclerotic heart disease of native coronary artery without angina pectoris
CPT/HCPCS: 93351

== ENCOUNTER → 2018-12-02 | Outpatient (CLI) | payer MEDICARE ==
--- NOTE | 2018-12-02 13:28 | MM ---
Reason for exam: additional evaluation requested from prior study. Last mammogram was performed 1 year and 2 months ago. History: Patient is postmenopausal. Benign US biopsy breast VAD LT of the left breast, January 28, 2015. Benign US biopsy breast add'l VAD LT of the left breast, January 28, 2015. Benign US RT VAD breast biopsy of the right breast, July 30, 2013. Benign US RT VAD breast biopsy of the right breast, July 30, 2013. Benign US RT VAD breast biopsy of the right breast, July 30, 2013. Benign US LT VAD breast biopsy of the left breast, July 30, 2013. Benign right breast aspiration of the right breast, July 25, 2012. Benign right breast aspiration additional of the right breast, July 25, 2012. Benign US right guided mammotome of the right breast, November 08, 2005. Benign excisional biopsy of the left breast, November 22, 1998. Stereotactic core biopsy of the left breast, November 17, 1998. Took hormonal contraceptives beginning at age 21. Took estrogen for 1 year beginning at age 51. Physical Findings: Nurse Summary: 1cm nodule in the right breast at 5 o'clock and a 1cm nodule in the left breast at 11 o'clock (nurse cw). MG 3D Diag Mammo W/Cad LEENA Bilateral CC and MLO view(s) were taken. Prior study comparison: September 26, 2017, bilateral MG 3d diag mammo w/cad LEENA. September 25, 2016, right breast MG 3d diag mammo w/cad RT. The breast tissue is extremely dense which could obscure a lesion on mammography. Stable benign calcifications bilaterally. No significant new findings when compared with previous films. These results were verbally communicated with the patient and result sheet given to the patient on 12/02/18. ASSESSMENT: Benign, BI-RAD 2 RECOMMENDATION: Routine screening mammogram of both breasts in 1 year. Manage patient on a clinical basis.
== END | disposition home or self-care (01) ==
LOC: RADMAMWWP 12:43
PROVIDERS: ATTEND Family Medicine
DX: R92.8 Other abnormal and inconclusive findings on diagnostic imaging of breast (principal)
CPT/HCPCS: 77066; G0279; 77062

== ENCOUNTER 2019-10-20 10:34 | Emergency (ER) | payer MEDICARE, OTHER ==
[2019-10-20] MEDS ORDERED: KETOROLAC 60 MG/2 ML VIAL IM STA (11:25)
--- NOTE | 2019-10-20 11:48 | ED ---
General Adult HPI - General Chief complaint: Abdominal Pain Stated complaint: lt sided abd pain Time Seen by Provider: 10/20/19 11:00 Source: patient, RN notes reviewed, old records reviewed Mode of arrival: wheelchair Limitations: no limitations - History of Present Illness Initial comments: This is a 63-year-old female who presents emergency Department complaining of left lateral lower rib pain. Patient states she's had bronchitis for 4 days she's on antibiotics discharge currently. Patient states she coughed so hard ever since then it hurts anytime she coughs or takes a deep breath per patient states she's not taking a deep breath or moving she has no pain at all. Patient denies any actual abdominal pain. Patient denies nausea vomiting or diarrhea. Patient denies any fever or chills. Patient denies any anterior chest pain. Patient denies any diaphoretic episodes. Patient denies being short of breath only hurts to breathe. - Related Data Home Medications Medication Instructions Recorded Confirmed Budesonide-Formot 160-4.5 Mcg 2 puff INHALATION RT-BID 11/04/15 08/29/18 [Symbicort 160-4.5 Mcg Inhaler] Furosemide [Lasix] 20 mg PO DAILY 01/09/16 08/29/18 Albuterol Nebulized [Ventolin 2.5 mg INHALATION RT-QID PRN 03/16/17 08/29/18 Nebulized] Ipratropium Nebulized [Atrovent 0.5 mg INHALATION RT-QID PRN 03/16/17 08/29/18 Nebulized] Lisinopril [Prinivil] 20 mg PO DAILY 03/16/17 08/29/18 Aspirin [Adult Low Dose Aspirin EC] 81 mg PO HS 10/18/17 08/29/18 Atorvastatin Calcium [Lipitor] 5 mg PO HS 10/18/17 08/29/18 Ubidecarenone [Co Q-10] 100 mg PO DAILY 10/18/17 08/29/18 Raloxifene [Evista] 60 mg PO DAILY 11/15/17 08/29/18 Paliperidone Palmitate [Invega 78 mg IM Q30D 08/29/18 08/29/18 Sustenna] Previous Rx's Medication Instructions Recorded Polymyxin B-Trimeth Sulf Ophth 2 drops RIGHT EYE Q4H #1 tube 08/29/18 [Polytrim Opthalmic] Ibuprofen [Motrin] 600 mg PO Q6HR PRN #20 tab 10/20/19 Allergies Allergy/AdvReac Type Severity Reaction Status Date / Time Milk Containing Products Allergy Unknown Swelling Verified 10/20/19 10:47 [Dairy] doxycycline Allergy Anaphylaxis Verified 10/20/19 10:47 Review of Systems ROS Statement: Those systems with pertinent positive or pertinent negative responses have been documented in the HPI. ROS Other: All systems not noted in ROS Statement are negative. Past Medical History Past Medical History: Asthma, COPD, Hyperlipidemia, Hypertension Additional Past Medical History / Comment(s): emphysema. History of Any Multi-Drug Resistant Organisms: None Reported Past Surgical History: Adenoidectomy, Appendectomy, Back Surgery, Section, Hysterectomy, Tonsillectomy Past Anesthesia/Blood Transfusion Reactions: No Reported Reaction Past Psychological History: Schizophrenia Smoking Status: Former smoker Past Alcohol Use History: Occasional Past Drug Use History: None Reported - Past Family History Mother Family Medical History: COPD General Exam - General Exam Comments Initial Comments: GENERAL: Patient is well-developed and well-nourished. Patient is nontoxic and well- hydrated and is in mild distress. ENT: Neck is soft and supple. No significant lymphadenopathy is noted. Oropharynx i s clear. Moist mucous membranes. Neck has full range of motion without eliciting any pain. EYES: The sclera were anicteric and conjunctiva were pink and moist. Extraocular movements were intact and pupils were equal round and reactive to light. Eyelids were unremarkable. PULMONARY: Unlabored respirations. Good breath sounds bilaterally. No audible rales rhonchi or wheezing was noted. CARDIOVASCULAR: There is a regular rate and rhythm without any murmurs gallops or rubs. Left lateral lower ribs are tender to palpation ABDOMEN: Soft and nontender with normal bowel sounds. SKIN: Skin is clear with no lesions or rashes and otherwise unremarkable. NEUROLOGIC: Patient is alert and oriented x3. Cranial nerves II through XII are grossly intact. Motor and sensory are also intact. Normal speech, volume and content. Symmetrical smile. MUSCULOSKELETAL: Normal extremities with adequate strength and full range of motion. LYMPHATICS: No significant lymphadenopathy is noted PSYCHIATRIC: Normal psychiatric evaluation. Limitations: no limitations Course Vital Signs 10/20/19 10/20/19 10:44 11:54 Temperature 97.7 F Pulse Rate 90 Respiratory 18 20 Rate Blood Pressure 150/84 O2 Sat by Pulse 100 Oximetry Medical Decision Making - Medical Decision Making EKG shows normal sinus rhythm at 80 bpm GA interval is 152 QRS is 70 QT interval 352 QTC is 405. EKG shows no ST segment elevation or depression Patient's chest x-ray shows no acute abnormality. I'll back into reevaluate the patient and she stated the Toradol really help with the pain and she only has very little pain left at this time. Disposition Clinical Impression: Chest wall pain Disposition: HOME SELF-CARE Condition: Good Instructions (If sedation given, give patient instructions): Chest Pain (ED) Prescriptions: Ibuprofen [Motrin] 600 mg PO Q6HR PRN #20 tab PRN Reason: For pain Is patient prescribed a controlled substance at d/c from ED?: No Referrals: Ariel Corley MD [Primary Care Provider] - 1-2 days Time of Disposition: 12:34
--- NOTE | 2019-10-20 12:24 | XR ---
EXAMINATION TYPE: XR chest 2V DATE OF EXAM: 10/20/2019 COMPARISON: Prior chest x-ray dated 03/11/2018, 07/30/2018, chest CT 11/17/2018 HISTORY: Difficulty breathing TECHNIQUE: Frontal and lateral views of the chest are obtained. FINDINGS: There is no focal air space opacity, pleural effusion, or pneumothorax seen. The cardiac silhouette size is within normal limits. The osseous structures are intact, thoracic compression fr actures again seen, there is thoracic spondylosis. The aorta is dense. There are prominent lung volum es, flattening the hemidiaphragms consistent with underlying emphysema. IMPRESSION: No acute cardiopulmonary process.
[2019-10-20 12:47] VITALS: BP 150/97; PULSE 87; RESP 16; TEMP 98
== END 2019-10-20 12:47 | disposition home or self-care (01) ==
LOC: EC 10:34
DX: R07.89 Other chest pain (principal); J44.9 Chronic obstructive pulmonary disease, unspecified; E78.5 Hyperlipidemia, unspecified; I10 Essential (primary) hypertension; F20.9 Schizophrenia, unspecified; Z79.82 Long term (current) use of aspirin; Z79.899 Other long term (current) drug therapy; Z79.51 Long term (current) use of inhaled steroids; Z91.011 Allergy to milk products; Z88.1 Allergy status to other antibiotic agents; Z87.09 Personal history of other diseases of the respiratory system; Z87.891 Personal history of nicotine dependence
CPT/HCPCS: 93005; 71046; 96374; 99284; J1885

== ENCOUNTER → 2019-12-08 | Outpatient (CLI) | payer MEDICARE ==
--- NOTE | 2019-12-09 10:03 | MM ---
Reason for exam: clinical finding. Last mammogram was performed 1 year ago. History: Patient is postmenopausal. Benign US biopsy breast VAD LT of the left breast, January 28, 2015. Benign US biopsy breast add'l VAD LT of the left breast, January 28, 2015. Benign US RT VAD breast biopsy of the right breast, July 30, 2013. Benign US RT VAD breast biopsy of the right breast, July 30, 2013. Benign US RT VAD breast biopsy of the right breast, July 30, 2013. Benign US LT VAD breast biopsy of the left breast, July 30, 2013. Benign right breast aspiration of the right breast, July 25, 2012. Benign right breast aspiration additional of the right breast, July 25, 2012. Benign US right guided mammotome of the right breast, November 08, 2005. Benign excisional biopsy of the left breast, November 22, 1998. Stereotactic core biopsy of the left breast, November 17, 1998. Took hormonal contraceptives beginning at age 21. Took estrogen for 1 year beginning at age 51. Physical Findings: Nurse Summary: 5cm nodule in the left breast at 10 o'clock (nurse dw). MG 3D Diag Mammo W/Cad LEENA Bilateral CC and MLO view(s) were taken. Prior study comparison: December 02, 2018, bilateral MG 3d diag mammo w/cad LEENA. September 26, 2017, bilateral MG 3d diag mammo w/cad LEENA. The breast tissue is extremely dense which could obscure a lesion on mammography. Finding: There are typically benign diffuse/scattered calcifications similar to prior exams. Deep to the left palpable BB marker there is an obscured 3.0cm mass. Right upper outer quadrant architectural distortion 3cm appear more apparent on today's exam than priors. These results were verbally communicated with the patient and result sheet given to the patient on 12/08/19. ASSESSMENT: Incomplete: need additional imaging evaluation, BI-RAD 0 RECOMMENDATION: Ultrasound of both breasts. (right upper outer quadrant, left palpable)
--- NOTE | 2019-12-09 10:12 | USB ---
Reason for exam: additional evaluation requested from abnormal screening. History: Patient is postmenopausal. Benign US biopsy breast VAD LT of the left breast, January 28, 2015. Benign US biopsy breast add'l VAD LT of the left breast, January 28, 2015. Benign US RT VAD breast biopsy of the right breast, July 30, 2013. Benign US RT VAD breast biopsy of the right breast, July 30, 2013. Benign US RT VAD breast biopsy of the right breast, July 30, 2013. Benign US LT VAD breast biopsy of the left breast, July 30, 2013. Benign right breast aspiration of the right breast, July 25, 2012. Benign right breast aspiration additional of the right breast, July 25, 2012. Benign US right guided mammotome of the right breast, November 08, 2005. Benign excisional biopsy of the left breast, November 22, 1998. Stereotactic core biopsy of the left breast, November 17, 1998. Took hormonal contraceptives beginning at age 21. Took estrogen for 1 year beginning at age 51. US Breast Limited BILAT Technologist: Patricia Manuel Right limited breast ultrasound including focal area of concern, retroareolar and axilla demonstrates a 2.4 x 0.9 x 0.7cm lobulated, irregular lesion at 9 o'clock, enlarged from 03/20/16, biopsy recommended, a 1.1 x 1.0 x 0.5cm oval, cystic lesion at 9 o'clock, a 0.3cm calcification at 10 o'clock, a 0.5 x 0.4 x 0.3cm cystic lesion at 11 o'clock and a 2.8 x 1.3 s 1.1cm lymph node at the axilla, enlarged but possible reactive as hyperechoic, reassess at time of biopsy. Left limited breast ultrasound including focal area of concern, retroareolar and axilla demonstrates a 4.1 x 4.0 x 2.5cm lesion at 9-12 o'clock, biopsy of the solid and a 2.5 x 1.4 x 1.3cm lesion at axilla. These results were verbally communicated with the patient and result sheet given to the patient on 12/08/19. ASSESSMENT: Suspicious, BI-RAD 4 RECOMMENDATION: Ultrasound core biopsy of both breasts. (right 9 o'clock, left 9-12 o'clock) Called Dr. Corley's office with mammographic findings and has scheduled an appointment for the patient for 5/14/20 at 10:[address] Braswell. Biopsy scheduled for 12/16/19 at 10 o'clock. PRELIMINARY REPORT CALLED AND FAXED TO DR. BRASWELL ON 12/09/19.
== END | disposition home or self-care (01) ==
LOC: RADMAMWWP 10:56
PROVIDERS: ATTEND Family Medicine
DX: N63.10 Unspecified lump in the right breast, unspecified quadrant (principal); N63.20 Unspecified lump in the left breast, unspecified quadrant; N64.89 Other specified disorders of breast
CPT/HCPCS: 77066; 76642; G0279; 77062

== ENCOUNTER → 2019-12-16 | Day surgery (SDC) | payer MEDICARE ==
[2019-12-16 10:25] VITALS: RESP 16; TEMP 98
[2019-12-16 11:47] VITALS: BP 135/89; PULSE 78
--- NOTE | 2019-12-16 12:02 | USB ---
EXAMINATION TYPE: US biopsy breast VAD LT DATE OF EXAM: 12/16/2019 CLINICAL HISTORY: ABNORMAL MAMMOGRAM. TECHNIQUE: Ultrasound guided core biopsy of left breast. COMPARISON: NONE FINDINGS: The procedure of ultrasound guided core biopsy was explained to the patient. Benefits, alt ernatives, and risks were discussed. An informed consent was then obtained. The patient was placed in supine positioning for imaging and for the procedure. The overlying skin w as prepped and draped in usual sterile fashion. Lidocaine buffered with bicarbonate was used as anes thetic into the skin and subcutaneous tissue up to area of concern in the left breast. A brown was ma de with surgical scalpel. Under ultrasound guidance, a 12-gauge vacuum assisted biopsy gun device was used to obtain 5 core laura ples. The patient tolerated the procedure well without any immediate complication. The patient was kept in the radiology department for short stay after the procedure and then discharged home in stable condi tion. IMPRESSION: Successful, uncomplicated ultrasound guided core biopsy of area of concern in the left br east, full pathology results to follow.
--- NOTE | 2019-12-16 12:07 | USB ---
EXAMINATION TYPE: US biopsy breast VAD RT, US breast aspiration single RT DATE OF EXAM: 12/16/2019 CLINICAL HISTORY: ABNORMAL MAMMOGRAM. TECHNIQUE: Ultrasound guided core biopsy of right breast and aspiration. COMPARISON: NONE FINDINGS: The procedure of ultrasound guided core biopsy was explained to the patient. Benefits, alt ernatives, and risks were discussed. An informed consent was then obtained. The patient was placed in supine positioning for imaging and for the procedure. The overlying skin w as prepped and draped in usual sterile fashion. Lidocaine buffered with bicarbonate was used as anes thetic into the skin and subcutaneous tissue up to area of concern in the right breast. 0.5 cc of thick aspirate was also obtained from the region in question and submitted to cytology. Under ultrasound guidance, a 12-gauge vacuum assisted biopsy gun device was used to obtain 3 core laura ples. Following this, a biopsy clip was left in lesion. The patient tolerated the procedure well without any immediate complication. The patient was kept in the radiology department for short stay after the procedure and then discharged home in stable condi tion. IMPRESSION: Successful, uncomplicated ultrasound guided core biopsy of area of concern in the 3 breas t, full pathology results to follow.
== END ==
LOC: RADUSWWP 09:11
PROVIDERS: ATTEND Surgery
DX: N60.12 Diffuse cystic mastopathy of left breast (principal); N60.11 Diffuse cystic mastopathy of right breast; N60.22 Fibroadenosis of left breast; N60.21 Fibroadenosis of right breast; R92.1 Mammographic calcification found on diagnostic imaging of breast; Z11.59 Encounter for screening for other viral diseases; N64.1 Fat necrosis of breast; R92.8 Other abnormal and inconclusive findings on diagnostic imaging of breast
CPT/HCPCS: 88305; 88173; 87635; 19000; 19083; 19084; A4648; J2001; 76942

== ENCOUNTER 2021-03-02 18:52 | Emergency (ER) | payer MEDICARE ==
[2021-03-02] MEDS ORDERED: methylPREDNISolone SOD SUCCI 125 MG/2 ML VIAL IV STA (19:29)
[2021-03-02] MEDS ORDERED: FAMOTIDINE 20 MG/2 ML VIAL IV STA (19:29)
[2021-03-02] MEDS ORDERED: IPRATROPIUM-ALBUTEROL 3 ML NEB INHALATION STA ×2 (19:29→21:11)
--- NOTE | 2021-03-02 19:46 | ED ---
SOB HPI - General Chief Complaint: Shortness of Breath Stated Complaint: MAYNOR Time Seen by Provider: 03/02/21 19:20 Source: patient Mode of arrival: wheelchair Limitations: no limitations - History of Present Illness Initial Comments: 65-year-old female with history of COPD presents to emergency Department with a chief complaint of shortness of breath. Reports the symptoms and I will put a past several days and gradually increasing severity. Patient reports worsening exertional dyspnea but denies any associated chest pain. States she feels like the wheezing is increased. Not oxygen dependent. Has not smoked for several years. Denies any nausea, vomiting, headaches, blurry vision, once the weakness appears seizures. Denies history of PE or DVT. States her primary care physician recently started her on amlodipine for hypertension. Denies any fevers or chills or cough. She used several nebulized albuterol treatments at home with no significant improvement in symptoms. She sees - Related Data Home Medications Medication Instructions Recorded Confirmed Budesonide-Formot 160-4.5 Mcg 2 puff INHALATION RT-BID 11/04/15 12/16/19 [Symbicort 160-4.5 Mcg Inhaler] Furosemide [Lasix] 20 mg PO DAILY 01/09/16 12/16/19 Ipratropium Nebulized [Atrovent 0.5 mg INHALATION RT-QID PRN 03/16/17 12/16/19 Nebulized] lisinopriL [Prinivil] 20 mg PO DAILY 03/16/17 12/16/19 Aspirin [Adult Low Dose Aspirin EC] 81 mg PO HS 10/18/17 12/16/19 Ubidecarenone [Co Q-10] 100 mg PO DAILY 10/18/17 12/16/19 ARIPiprazole [Abilify] 5 mg PO DAILY 12/16/19 12/16/19 Previous Rx's Medication Instructions Recorded predniSONE 50 mg PO DAILY #5 tab 03/02/21 Allergies Allergy/AdvReac Type Severity Reaction Status Date / Time Milk Containing Products Allergy Unknown Swelling Verified 03/02/21 18:55 [Dairy] doxycycline Allergy Anaphylaxis Verified 03/02/21 18:55 Review of Systems ROS Statement: Those systems with pertinent positive or pertinent negative responses have been documented in the HPI. ROS Other: All systems not noted in ROS Statement are negative. Past Medical History Past Medical History: Asthma, COPD, Hyperlipidemia, Hypertension Additional Past Medical History / Comment(s): emphysema. History of Any Multi-Drug Resistant Organisms: None Reported Past Surgical History: Adenoidectomy, Appendectomy, Back Surgery, Section, Hysterectomy, Tonsillectomy Past Anesthesia/Blood Transfusion Reactions: No Reported Reaction Past Psychological History: Schizophrenia Smoking Status: Former smoker Past Alcohol Use History: Occasional Past Drug Use History: None Reported - Past Family History Mother Family Medical History: COPD General Exam Limitations: no limitations General appearance: alert, in no apparent distress Head exam: Present: atraumatic, normocephalic, normal inspection Eye exam: Present: normal appearance, PERRL, EOMI Pupils: Present: normal accommodation Neck exam: Present: normal inspection, full ROM. Absent: tenderness, lymphadenopathy Respiratory exam: Present: wheezes (Mild, diffuse bilateral wheezing), prolonged expiratory. Absent: respiratory distress, rales, rhonchi, stridor, chest wall tenderness, accessory muscle use (No retractions) Cardiovascular Exam: Present: regular rate, normal rhythm, normal heart sounds. Absent: systolic murmur Extremities exam: Present: normal inspection, full ROM, normal capillary refill. Absent: tenderness Back exam: Present: normal inspection, full ROM. Absent: tenderness, CVA tenderness (R), CVA tenderness (L) Neurological exam: Present: alert, oriented X3 Psychiatric exam: Present: normal affect, normal mood Skin exam: Present: warm, dry, intact, normal color Course Vital Signs 03/02/21 03/02/21 03/02/21 18:55 19:57 20:10 Temperature 98.6 F Pulse Rate 106 H 88 Respiratory 22 18 Rate Blood Pressure 163/101 O2 Sat by Pulse 95 Oximetry 03/02/21 03/02/21 03/02/21 20:19 20:20 20:35 Temperature Pulse Rate 88 88 96 Respiratory Rate Blood Pressure O2 Sat by Pulse Oximetry Medical Decision Making - Medical Decision Making 55-year-old female with history of COPD presenting to the emergency department with a chief complaint of shortness of breath. On physical examination, no retractions the patient does have mild, diffuse bilateral wheezing. Patient was given 2 DuoNeb treatments and Solu-Medrol. Chest x-ray reveals hyperinflation. Laboratory work is unremarkable. She does have mild hyponatremia 128. Coags within normal limits. Slight elevation in d-dimer 0.62. Age-adjusted it appears to be within normal limits. On reevaluation, she still wheezy and I gave her another breathing treatment. I did offer admission to the patient, she declined. States she would rather go home. I will give her a 5 day course of prednisone. Return parameters were thoroughly discussed the patient was standing agreeable. Case discussed with physician. - Lab Data Result diagrams: 03/02/21 19:57 03/02/21 19:57 Lab Results 03/02/21 03/02/21 03/02/21 Range/Units 19:57 19:57 19:57 WBC 10.2 (3.8-10.6) k/uL RBC 4.28 (3.80-5.40) m/uL Hgb 13.7 (11.4-16.0) gm/dL Hct 43.4 (34.0-46.0) % MCV 101.3 H (80.0-100.0) fL MCH 32.0 (25.0-35.0) pg MCHC 31.6 (31.0-37.0) g/dL RDW 12.9 (11.5-15.5) % Plt Count 378 (150-450) k/uL MPV 6.2 Neutrophils % 72 % Lymphocytes % 15 % Monocytes % 8 % Eosinophils % 2 % Basophils % 1 % Neutrophils # 7.4 (1.3-7.7) k/uL Lymphocytes # 1.6 (1.0-4.8) k/uL Monocytes # 0.8 (0-1.0) k/uL Eosinophils # 0.2 (0-0.7) k/uL Basophils # 0.1 (0-0.2) k/uL PT 9.6 (9.0-12.0) sec INR 0.9 (<1.2) APTT 23.4 (22.0-30.0) sec D-Dimer 0.62 H (<0.60) mg/L FEU Sodium 128 L (137-145) mmol/L Potassium 3.9 (3.5-5.1) mmol/L Chloride 91 L (98-107) mmol/L Carbon Dioxide 27 (22-30) mmol/L Anion Gap 10 mmol/L BUN 13 (7-17) mg/dL Creatinine 0.56 (0.52-1.04) mg/dL Est GFR (CKD-EPI)AfAm >90 (>60 ml/min/1.73 sqM) Est GFR (CKD-EPI)NonAf >90 (>60 ml/min/1.73 sqM) Glucose 91 (74-99) mg/dL Calcium 9.4 (8.4-10.2) mg/dL Total Bilirubin 0.2 (0.2-1.3) mg/dL AST 40 H (14-36) U/L ALT 23 (4-34) U/L Alkaline Phosphatase 37 L (38-126) U/L Troponin I (0.000-0.034) ng/mL Total Protein 6.6 (6.3-8.2) g/dL Albumin 4.4 (3.5-5.0) g/dL 03/02/21 Range/Units 19:57 WBC (3.8-10.6) k/uL RBC (3.80-5.40) m/uL Hgb (11.4-16.0) gm/dL Hct (34.0-46.0) % MCV (80.0-100.0) fL MCH (25.0-35.0) pg MCHC (31.0-37.0) g/dL RDW (11.5-15.5) % Plt Count (150-450) k/uL MPV Neutrophils % % Lymphocytes % % Monocytes % % Eosinophils % % Basophils % % Neutrophils # (1.3-7.7) k/uL Lymphocytes # (1.0-4.8) k/uL Monocytes # (0-1.0) k/uL Eosinophils # (0-0.7) k/uL Basophils # (0-0.2) k/uL PT (9.0-12.0) sec INR (<1.2) APTT (22.0-30.0) sec D-Dimer (<0.60) mg/L FEU Sodium (137-145) mmol/L Potassium (3.5-5.1) mmol/L Chloride (98-107) mmol/L Carbon Dioxide (22-30) mmol/L Anion Gap mmol/L BUN (7-17) mg/dL Creatinine (0.52-1.04) mg/dL Est GFR (CKD-EPI)AfAm (>60 ml/min/1.73 sqM) Est GFR (CKD-EPI)NonAf (>60 ml/min/1.73 sqM) Glucose (74-99) mg/dL Calcium (8.4-10.2) mg/dL Total Bilirubin (0.2-1.3) mg/dL AST (14-36) U/L ALT (4-34) U/L Alkaline Phosphatase (38-126) U/L Troponin I <0.012 (0.000-0.034) ng/mL Total Protein (6.3-8.2) g/dL Albumin (3.5-5.0) g/dL - EKG Data EKG Comments: Sinus rhythm No acute ischemic changes next time a regular rate 99, [place] 160, QRS 60, QTC 415. Disposition Clinical Impression: COPD exacerbation Disposition: HOME SELF-CARE Condition: Stable Instructions (If sedation given, give patient instructions): COPD (Chronic Ob structive Pulmonary Disease) (ED) Additional Instructions: Please return to the Emergency Department if symptoms worsen or any other concerns. Prescriptions: predniSONE 50 mg PO DAILY #5 tab Is patient prescribed a controlled substance at d/c from ED?: No Referrals: Ariel Corley MD [Primary Care Provider] - 1-2 days Time of Disposition: 21:57
[2021-03-02 20:02] VITALS: RESP 18
[2021-03-02 20:32] LABS: Basophils # (A) 0.1 k/uL (0-0.2); Basophils % (A) 1 %; Eosinophils # (A) 0.2 k/uL (0-0.7); Eosinophils % (A) 2 %; HCT 43.4 % (34.0-46.0); HGB 13.7 gm/dL (11.4-16.0); Lymphocytes # (A) 1.6 k/uL (1.0-4.8); Lymphocytes % (A) 15 %; MCHC 31.6 g/dL (31.0-37.0); MCV 101.3 fL (80.0-100.0); Mean Platelet Volume 6.2; Monocytes # (A) 0.8 k/uL (0-1.0); Monocytes % (A) 8 %; Neutrophils # (A) 7.4 k/uL (1.3-7.7); Neutrophils % (A) 72 %; Platelet Count 378 k/uL (150-450); RBC 4.28 m/uL (3.80-5.40); RDW 12.9 % (11.5-15.5); WBC 10.2 k/uL (3.8-10.6)
--- NOTE | 2021-03-02 20:40 | XR ---
EXAMINATION: XR chest 2V DATE AND TIME: 03/02/2021 8:02 PM CLINICAL INDICATION: PHH; difficulty breathing TECHNIQUE: Departmental protocol COMPARISON: 10/20/2019 FINDINGS: The lungs are clear. Hyperinflation is noted. The pleural spaces are negative. The cardiac silhouette is not enlarged. The remainder of the mediastinal silhouette is unremarkable. The skeletal structures and soft tissues are negative for acute findings. IMPRESSION: Hyperinflation, no other findings.
[2021-03-02 20:44] LABS: ALT 23 U/L (4-34); AST 40 U/L (14-36); African American GFR (CKD) >90 (>60 ml/min/1.73 sqM); Albumin 4.4 g/dL (3.5-5.0); Alkaline Phosphatase 37 U/L (38-126); Anion Gap 10 mmol/L; Blood Urea Nitrogen 13 mg/dL (7-17); Calcium 9.4 mg/dL (8.4-10.2); Carbon Dioxide 27 mmol/L (22-30); Chloride 91 mmol/L (98-107); Glucose 91 mg/dL (74-99); Non-African American GFR(CKD) >90 (>60 ml/min/1.73 sqM); Potassium 3.9 mmol/L (3.5-5.1); Sodium 128 mmol/L (137-145); Total Bilirubin 0.2 mg/dL (0.2-1.3); Total Protein 6.6 g/dL (6.3-8.2)
[2021-03-02 20:49] LABS: INR 0.9 (<1.2); Partial Thromboplastin Time 23.4 sec (22.0-30.0); Prothrombin Time 9.6 sec (9.0-12.0)
[2021-03-02 22:35] VITALS: BP 146/88; PULSE 73; TEMP 98.3
== END 2021-03-02 22:34 | disposition home or self-care (01) ==
LOC: EC 18:52
DX: J44.1 Chronic obstructive pulmonary disease with (acute) exacerbation (principal); I10 Essential (primary) hypertension; E78.5 Hyperlipidemia, unspecified; F20.9 Schizophrenia, unspecified; Z79.51 Long term (current) use of inhaled steroids; Z79.52 Long term (current) use of systemic steroids; Z79.82 Long term (current) use of aspirin; Z79.899 Other long term (current) drug therapy; Z87.891 Personal history of nicotine dependence
CPT/HCPCS: 36415; 94640 ×2; 93005; 85379; 80053; 84484; 85025; 85610; 85730; 71046; 96374; 96375; 99284; J2930

== ENCOUNTER → 2022-07-27 | Outpatient (CLI) | payer MEDICARE, OTHER ==
--- NOTE | 2022-07-30 08:03 | MM ---
Reason for Exam: Screening (asymptomatic). Last mammogram was performed 1 year(s) and 3 month(s) ago. Patient History: Menarche at age 12. Patient has no children. Hysterectomy at age 25. Postmenopausal. Estrogen for 1 year from age 51 until age 53. Hormonal Contraceptives, from age 21 until age 25. 12/16/2019, Benign Cyst Aspiration on the right side. 12/16/2019, Benign Core Biopsy on the left side. 12/16/2019, Benign Core Biopsy on the right side. 01/28/2015, Benign Core Biopsy on the left side. 01/28/2015, Benign Core Biopsy on the left side. 07/30/2013, Benign Core Biopsy on the right side. 07/30/2013, Benign Core Biopsy on the right side. 07/30/2013, Benign Core Biopsy on the left side. 07/30/2013, Benign Core Biopsy on the right side. 07/25/2012, Benign Cyst Aspiration on the right side. 07/25/2012, Benign Cyst Aspiration on the right side. 11/08/2005, Benign Core Biopsy on the right side. 11/22/1998, Benign Excisional Biopsy on the left side. 11/17/1998, Stereotactic Core Biopsy on the Left side. Risk Values: Rosy 5 year model risk: 2.8%. NCI Lifetime model risk: 9.5%. Prior Study Comparison: 12/02/2018 Bilateral Diagnostic Mammogram, [facility]. 12/08/2019 Bilateral Diagnostic Mammogram, [facility]. 04/12/2021 Bilateral Diagnostic Mammogram, [facility]. Tissue Density: The breast tissue is extremely dense which could obscure a lesion on mammography. Findings: Analyzed By CAD. There are multiple biopsy clips throughout the right breast and a few biopsy clips scattered throughout the left breast redemonstrated. There are scattered round and dystrophic calcifications of varying size and shape throughout the bilateral breasts redemonstrated. More loosely grouped tiny round calcifications in the right breast upper outer aspect remain present. Stable round circumscribed 10 mm mass in the posterior right breast outer aspect from 2018 and mammogram stable distortion in the anterior outer right breast upper aspect. There is no suspicious new group of microcalcifications or new obvious mass in either breast. Overall Assessment: Benign, BI-RAD 2 Management: Screening Mammogram of both breasts in 1 year. Some advise bilateral breast ultrasound surveillance in patients with background dense tissue A clinical breast exam by your physician is recommended on an annual basis and results should be correlated with mammographic findings. Electronically signed and approved by: Yaokv Anderson M.D.
== END | disposition home or self-care (01) ==
LOC: RADMAMWWP 11:57
PROVIDERS: ATTEND Family Medicine
DX: Z12.31 Encounter for screening mammogram for malignant neoplasm of breast (principal); Z78.0 Asymptomatic menopausal state
CPT/HCPCS: 77063; 77067

== ENCOUNTER 2023-12-18 10:10 | Inpatient (IN) | payer MEDICARE, OTHER ==
--- NOTE | 2023-12-18 10:37 | ED ---
General Adult HPI - General Chief complaint: Shortness of Breath Stated complaint: SOB Time Seen by Provider: 12/18/23 10:16 Source: patient, EMS Mode of arrival: EMS - History of Present Illness Initial comments: Dictation was produced using [employer] dictation software. please excuse any grammatical, word or spelling errors. Chief Complaint: 68-year-old female presents to the emergency department with shortness of breath History of Present Illness: Patient is a poor historian. She is a 68-year-old female past medical history of COPD and asthma. Patient states she called the ambulance but she does report that she did not want to come to the ER. Patient states that her apartment is hot make it difficult for her to breathe. Denies any fever, chills or night sweats. No chest pain. Patient attributes her dyspnea secondary to the heat in her apartment. The ROS documented in this emergency department record has been reviewed and confirmed by me. Those systems with pertinent positive or negative responses have been documented in the HPI. All other systems are other negative and/or noncontributory. - Related Data Home Medications Medication Instructions Recorded Confirmed Budesonide-Formot 160-4.5 Mcg 2 puff INHALATION RT-BID@1000,2200 11/04/15 12/18/23 [Symbicort 160-4.5 Mcg Inhaler] Furosemide [Lasix] 20 mg PO BID 01/09/16 12/18/23 Albuterol Inhaler [Ventolin Hfa 1 - 2 puff INHALATION RT-QID PRN 12/18/23 12/18/23 Inhaler] Albuterol Inhaler [Ventolin Hfa 2 puff INHALATION RT-DAILY@0800 12/18/23 12/18/23 Inhaler] Calcium Carbonate [Calcium] 600 mg PO DAILY 12/18/23 12/18/23 Cholecalciferol [Vitamin D3 (25 25 mcg PO DAILY 12/18/23 12/18/23 Mcg = 1000 Iu)] Fluticasone/Umeclidin/Vilanter 1 puff INHALATION RT-DAILY@1030 12/18/23 12/18/23 [Trelegy Ellipta 100-62.5-25] Levofloxacin [Levaquin] 250 mg PO DAILY@1600 12/18/23 12/18/23 Levothyroxine Sodium [Synthroid] 25 mcg PO DAILY 12/18/23 12/18/23 Losartan [Cozaar] 50 mg PO DAILY 12/18/23 12/18/23 Pravastatin Sodium [Pravachol] 20 mg PO DAILY 12/18/23 12/18/23 risperiDONE [RisperDAL] 1 mg PO HS 12/18/23 12/18/23 Allergies Allergy/AdvReac Type Severity Reaction Status Date / Time Milk Containing Products Allergy Unknown Swelling Verified 12/18/23 11:38 (Dairy) [Dairy] doxycycline Allergy Anaphylaxis Verified 12/18/23 11:38 Review of Systems ROS Statement: Those systems with pertinent positive or pertinent negative responses have been documented in the HPI. ROS Other: All systems not noted in ROS Statement are negative. Past Medical History Past Medical History: Asthma, COPD, Hyperlipidemia, Hypertension Additional Past Medical History / Comment(s): emphysema. History of Any Multi-Drug Resistant Organisms: None Reported Past Surgical History: Adenoidectomy, Appendectomy, Back Surgery, Section, Hysterectomy, Tonsillectomy Past Anesthesia/Blood Transfusion Reactions: No Reported Reaction Past Psychological History: Schizophrenia Smoking Status: Former smoker Past Alcohol Use History: Occasional Past Drug Use History: None Reported - Past Family History Mother Family Medical History: COPD General Exam - General Exam Comments Initial Comments: PHYSICAL EXAM: General Impression: Alert and oriented x3, not in acute distress HEENT: Normocephalic atraumatic, extra-ocular movements intact, pupils equal and reactive to light bilaterally, mucous membranes moist. Cardiovascular: Heart regular rate and rhythm Chest: Dyspneic, diminished lung sounds Abdomen: abdomen soft, non-tender, non-distended, no organomegaly Musculoskeletal: Pulses present and equal in all extremities, no peripheral edema Motor: no focal deficits noted Neurological: CN II-XII grossly intact, no focal motor or sensory deficits noted Skin: Intact with no visualized rashes Psych: Normal affect and mood Course Vital Signs 12/18/23 12/18/23 12/18/23 10:13 11:06 11:25 Temperature 97.3 F L Pulse Rate 109 H 96 98 Respiratory 22 20 Rate Blood Pressure 167/108 125/88 O2 Sat by Pulse 98 100 Oximetry 12/18/23 12/18/23 12/18/23 11:33 12:59 13:02 Temperature Pulse Rate 100 117 H Respiratory Rate Blood Pressure O2 Sat by Pulse 80 L 95 Oximetry EKG Findings - EKG Comments: EKG Findings:: My EKG interpretation: Ventricular rate 107, sinus tachycardia,. 132, QRS 84, QTc 372. No [place] prolongation, no QTC prolongation, no ST or T-wave changes noted. New T wave inversion in lead V3, no other abnormalities noted. Overall this EKG is nonspecific. EKG compared to March 02, 2021 Medical Decision Making - Medical Decision Making Was pt. sent in by a medical professional or institution (, [facility], CHILD DEVELOPMENT ASSOCIATE TEACHER, urgent care, hospital, or residential...) When possible be specific @ -No Did you speak to anyone other than the patient for history (EMS, parent, family, police, friend...)? What history was obtained from this source @ -No Did you review nursing and triage notes (agree or disagree)? Why? @ -I reviewed and agree with nursing and triage notes Were old charts reviewed (outside hosp., previous admission, EMS record, old EKG, old radiological studies, urgent care reports/EKG's, residential records)? Report findings @ -No old charts were reviewed Differential Diagnosis (chest pain, altered mental status, abdominal pain women, abdominal pain men, vaginal bleeding, musculoskeletal, weakness, fever, dyspnea, syncope, headache, dizziness, GI bleed, back pain, seizure, CVA, palpatations, mental health)? @ -Differential Dyspnea: Coronary syndrome, arrhythmia, tamponade, asthma, COPD, pulmonary embolism, pneumonia, pneumothorax, pulmonary effusion, anaphylaxis, diabetic ketoacidosis, flailed chest, pulmonary contusion, diaphragmatic rupture, anemia, neuromuscular, this is not meant to be an all-inclusive list. EKG interpreted by me (3pts min.). @ -See above X-rays interpreted by me (1pt min.). @ -Chest x-ray shows no acute processes CT interpreted by me (1pt min.). @ -None done U/S interpreted by me (1pt. min.). @ -None done What testing was considered but not performed or refused? (CT, X-rays, U/S, labs)? Why? @ -None What meds were considered but not given or refused? Why? @ -None Did you discuss the management of the patient with other professionals (sophie onsabrina i.e. , PA, CHILD DEVELOPMENT ASSOCIATE TEACHER, lab, RT, psych nurse, social science professor, body maker machine setter, teacher, protection officer, returned case inspector)? Give summary @ -Case discussed with hospitalist for admission Was smoking cessation discussed for >3mins.? @ -No Was critical care preformed (if so, how long)? @ -Yes, 33 minutes Were there social determinants of health that impacted care today? How? (Homelessness, low income, unemployed, alcoholism, drug addiction, transportation, low edu. Level, literacy, decrease access to med. care, detention, rehab)? @ -No Was there de-escalation of care discussed even if they declined (Discuss DNR or withdrawal of care, Hospice)? DNR status @ -No What co-morbidities impacted this encounter? (DM, HTN, Smoking, COPD, CAD, Cancer, CVA, ARF, Chemo, Hep., AIDS, mental health diagnosis, sleep apnea, morbid obesity)? @ -None Was patient admitted / discharged? Hospital course, mention meds given and route, prescriptions, significant lab abnormalities, going to OR and other pertinent info. @ -68-year-old female past medical history of COPD and asthma presents to the emergency department for shortness of breath. Vital signs upon arrival showed 98% 5 L nasal cannula. Heart rate of 109. Rest of l vital signs within acceptable limits. Patient dyspneic at the bedside with end diminished lung sounds. Patient given breathing treatment with improvement of her symptoms. Laboratory evaluation obtained. CBC coag panel is negative. Metabolic panel shows sodium 130. Troponin elevated 0.054 BNP of 2750. Chest x-ray shows no acute processes. Some clear what is causing patient's elevated troponin may be secondary to cardiac ischemia versus troponin leak. Patient initially wanted to be discharged however she ambulated to the bathroom and started to feel very dyspneic. She has no chest pain. Patient given aspirin started on heparin, will be admitted for respiratory failure. Cardiology and pulmonology consulted. Undiagnosed new problem with uncertain prognosis? @ -No Drug Therapy requiring intensive monitoring for toxicity (Heparin, Nitro, Insulin, Cardizem)? @ -No Were any procedures done? @ -No Diagnosis/symptom? Acute, or Chronic, or Acute on Chronic? Uncomplicated (wi thout systemic symptoms) or Complicated (systemic symptoms)? @ -Respiratory failure Side effects of treatment? @ -No Exacerbation, Progression, or Severe Exacerbation? @ -No Poses a threat to life or bodily function? How? (Chest pain, [place], HI, pneumonia, PE, COPD, DKA, ARF, appy, cholecystitis, CVA, Diverticulitis, Homicidal, Suicidal, threat to staff... and all critical care pts) @ -yes - Lab Data Result diagrams: 12/18/23 10:51 12/18/23 10:47 Lab Results 12/18/23 12/18/23 12/18/23 Range/Units 10:47 10:47 10:47 WBC (3.8-10.6) k/uL RBC (3.80-5.40) m/uL Hgb (11.4-16.0) gm/dL Hct (34.0-46.0) % MCV (80.0-100.0) fL MCH (25.0-35.0) pg MCHC (31.0-37.0) g/dL RDW (11.5-15.5) % Plt Count (150-450) k/uL MPV Neutrophils % % Lymphocytes % % Monocytes % % Eosinophils % % Basophils % % Neutrophils # (1.3-7.7) k/uL Lymphocytes # (1.0-4.8) k/uL Monocytes # (0-1.0) k/uL Eosinophils # (0-0.7) k/uL Basophils # (0-0.2) k/uL PT 11.0 (10.0-12.5) sec INR 1.0 (<1.2) APTT 21.1 L (22.0-30.0) sec Sodium 130 L (137-145) mmol/L Potassium 4.0 (3.5-5.1) mmol/L Chloride 90 L (98-107) mmol/L Carbon Dioxide 36 H (22-30) mmol/L Anion Gap 4 mmol/L BUN 17 (7-17) mg/dL Creatinine 0.60 (0.52-1.04) mg/dL Est GFR (CKD-EPI)AfAm >90 (>60 ml/min/1.73 sqM) Est GFR (CKD-EPI)NonAf >90 (>60 ml/min/1.73 sqM) Glucose 108 H (74-99) mg/dL Calcium 9.1 (8.4-10.2) mg/dL Total Bilirubin 0.5 (0.2-1.3) mg/dL AST 93 H (14-36) U/L ALT 144 H (4-34) U/L Alkaline Phosphatase 42 (38-126) U/L Troponin I 0.054 H* (0.000-0.034) ng/mL NT-Pro-B Natriuret Pep 2750 pg/mL Total Protein 6.1 L (6.3-8.2) g/dL Albumin 4.0 (3.5-5.0) g/dL 12/18/23 Range/Units 10:51 WBC 9.8 (3.8-10.6) k/uL RBC 4.14 (3.80-5.40) m/uL Hgb 13.5 (11.4-16.0) gm/dL Hct 39.9 (34.0-46.0) % MCV 96.4 (80.0-100.0) fL MCH 32.6 (25.0-35.0) pg MCHC 33.8 (31.0-37.0) g/dL RDW 12.5 (11.5-15.5) % Plt Count 294 (150-450) k/uL MPV 8.0 Neutrophils % 88 % Lymphocytes % 5 % Monocytes % 7 % Eosinophils % 0 % Basophils % 0 % Neutrophils # 8.6 H (1.3-7.7) k/uL Lymphocytes # 0.4 L (1.0-4.8) k/uL Monocytes # 0.6 (0-1.0) k/uL Eosinophils # 0.0 (0-0.7) k/uL Basophils # 0.0 (0-0.2) k/uL PT (10.0-12.5) sec INR (<1.2) APTT (22.0-30.0) sec Sodium (137-145) mmol/L Potassium (3.5-5.1) mmol/L Chloride (98-107) mmol/L Carbon Dioxide (22-30) mmol/L Anion Gap mmol/L BUN (7-17) mg/dL Creatinine (0.52-1.04) mg/dL Est GFR (CKD-EPI)AfAm (>60 ml/min/1.73 sqM) Est GFR (CKD-EPI)NonAf (>60 ml/min/1.73 sqM) Glucose (74-99) mg/dL Calcium (8.4-10.2) mg/dL Total Bilirubin (0.2-1.3) mg/dL AST (14-36) U/L ALT (4-34) U/L Alkaline Phosphatase (38-126) U/L Troponin I (0.000-0.034) ng/mL NT-Pro-B Natriuret Pep pg/mL Total Protein (6.3-8.2) g/dL Albumin (3.5-5.0) g/dL Disposition Clinical Impression: Respiratory failure Disposition: ADMITTED IP TO THIS HOSP Condition: Serious Referrals: Ariel Corley MD [Primary Care Provider] - 1-2 days Decision Time: 13:11
[2023-12-18] MEDS: DEXAMETHASONE SOD PHOSPHATE 10 MG/ML 1 ML VIAL IV STA (11:08)
[2023-12-18] MEDS: IPRATROPIUM-ALBUTEROL 3 ML NEB INHALATION STA (11:25)
[2023-12-18 11:30] LABS: ALT 144 U/L (4-34); AST 93 U/L (14-36); African American GFR (CKD) >90 (>60 ml/min/1.73 sqM); Alkaline Phosphatase 42 U/L (38-126); Anion Gap 4 mmol/L; Blood Urea Nitrogen 17 mg/dL (7-17); Calcium 9.1 mg/dL (8.4-10.2); Carbon Dioxide 36 mmol/L (22-30); Chloride 90 mmol/L (98-107); Glucose 108 mg/dL (74-99); Non-African American GFR(CKD) >90 (>60 ml/min/1.73 sqM); Sodium 130 mmol/L (137-145); Total Bilirubin 0.5 mg/dL (0.2-1.3); Total Protein 6.1 g/dL (6.3-8.2)
[2023-12-18 11:35] LABS: NT-Pro-B-Type Natriuretic Pept 2750 pg/mL
[2023-12-18 11:35] LABS: Basophils % (A) 0 %; Eosinophils % (A) 0 %; HCT 39.9 % (34.0-46.0); HGB 13.5 gm/dL (11.4-16.0); Lymphocytes # (A) 0.4 k/uL (1.0-4.8); Lymphocytes % (A) 5 %; MCH 32.6 pg (25.0-35.0); MCHC 33.8 g/dL (31.0-37.0); MCV 96.4 fL (80.0-100.0); Monocytes # (A) 0.6 k/uL (0-1.0); Monocytes % (A) 7 %; Neutrophils # (A) 8.6 k/uL (1.3-7.7); Neutrophils % (A) 88 %; Platelet Count 294 k/uL (150-450); RBC 4.14 m/uL (3.80-5.40); RDW 12.5 % (11.5-15.5); WBC 9.8 k/uL (3.8-10.6)
[2023-12-18 12:03] LABS: Partial Thromboplastin Time 21.1 sec (22.0-30.0)
--- NOTE | 2023-12-18 12:11 | XR ---
EXAMINATION TYPE: XR chest 2V DATE OF EXAM: 12/18/2023 11:21 AM CLINICAL INDICATION:Female, 68 years old with history of dyspnea; [facility] COMPARISON: Chest radiographs from 03/02/2021 TECHNIQUE: XR chest 2V Frontal and lateral views of the chest. FINDINGS: Lungs/Pleura: There is no evidence of pleural effusion, focal consolidation, or pneumothorax. Pulmonary vascularity: Unremarkable. Heart/mediastinum: Cardiomediastinal silhouette is unremarkable. Musculoskeletal: No acute osseous pathology. Other findings: None Lines/Tubes: None. IMPRESSION: No acute cardiopulmonary disease/process.
[2023-12-18] MEDS ORDERED: NALOXONE 0.4 MG/ML 1 ML VIAL IVP PRN (13:05)
[2023-12-18] MEDS ORDERED: HEPARIN SODIUM 1,000 UN/ML (10ML VL) IV PRN (13:09)
[2023-12-18] MEDS: ASPIRIN 81 MG PO STA (13:55)
[2023-12-18] MEDS: HEPARIN SODIUM 1,000 UN/ML (10ML VL) IV ONE (14:01)
[2023-12-18] MEDS: HEPARIN SOD,PORK IN 0.45% NACL 25,000 UNIT in 0.45% NACL 1 250ML.BAG IV SCH (14:01)
[2023-12-18] MEDS: AZITHROMYCIN 500 MG TAB PO SCH (14:57)
--- NOTE | 2023-12-18 15:28 | P.CNPUL ---
History of Present Illness Consult date: 12/18/23 Requesting physician: Ariel Corley Reason for consult: COPD, hypoxemia Chief complaint: Shortness of breath History of present illness: This is a 68-year-old female patient with a known history of chronic tobacco dependence quit in 2009, chronic obstructive pulmonary disease, oxygen depe ndent, hyperlipidemia, hypothyroidism, hypertension who presented to the emergency room earlier today with complaints of increasing shortness of breath stating her apartment gets either too hot or too cold for her causing her shortness of breath. She is normally on oxygen at 3 L/min per nasal cannula at home. Her oxygen dropped to 80% with minimal activity. She is seen in consultation in the ER. She is on 5 L nasal cannula with O2 saturation at 96 she is afebrile. Hemodynamically stable. White count 9.8. Hemoglobin 13.5. Platelets 294. Sodium 130. Potassium 4.0. Bicarb 36. BUN 17. Creatinine 0.6. Glucose 108. D-dimer 0.38. Chest x-ray reveals no acute pulmonary process. Review of Systems REVIEW OF SYSTEMS: CONSTITUTIONAL: Denies any recent significant weight loss or weight gain. EYES: Denies change in vision. EARS, NOSE, MOUTH, THROAT: Denies headaches, denies sore throat. CARDIOVASCULAR: Denies chest pain, palpitations or syncopal episodes. RESPIRATORY: Positive for shortness of breath, cough, congestion no hemoptysis. GASTROINTESTINAL: Denies change in appetite, denies abdominal pain GENITOURINARY: Denies hematuria, denies infections. MUSKULOSKELETAL: Denies pain, denies swelling. INTEGUMENTARY: Denies rash, denies eczema. NEUROLOGICAL: Denies recent memory loss, no recent seizure activity. PSYCHIATRIC: Denies anxiety, denies depression. HEMATOLOGIC/LYMPHATIC: Denies anemia, denies enlarged lymph nodes. Past Medical History Past Medical History: Asthma, COPD, Hyperlipidemia, Hypertension Additional Past Medical History / Comment(s): emphysema. History of Any Multi-Drug Resistant Organisms: None Reported Past Surgical History: Adenoidectomy, Appendectomy, Back Surgery, Section, Hysterectomy, Tonsillectomy Past Anesthesia/Blood Transfusion Reactions: No Reported Reaction Past Psychological History: Schizophrenia Smoking Status: Former smoker Past Alcohol Use History: Occasional Past Drug Use History: None Reported - Past Family History Mother Family Medical History: COPD Medications and Allergies Home Medications Medication Instructions Recorded Confirmed Type Budesonide-Formot 160-4.5 Mcg 2 puff INHALATION RT-BID@1000,2200 11/04/15 12/18/23 History [Symbicort 160-4.5 Mcg Inhaler] Furosemide [Lasix] 20 mg PO BID 01/09/16 12/18/23 History Albuterol Inhaler [Ventolin Hfa 1 - 2 puff INHALATION RT-QID PRN 12/18/23 12/18/23 History Inhaler] Albuterol Inhaler [Ventolin Hfa 2 puff INHALATION RT-DAILY@0800 12/18/23 12/18/23 History Inhaler] Calcium Carbonate [Calcium] 600 mg PO DAILY 12/18/23 12/18/23 History Cholecalciferol [Vitamin D3 (25 25 mcg PO DAILY 12/18/23 12/18/23 History Mcg = 1000 Iu)] Fluticasone/Umeclidin/Vilanter 1 puff INHALATION RT-DAILY@1030 12/18/23 12/18/23 History [Trelegy Ellipta 100-62.5-25] Levofloxacin [Levaquin] 250 mg PO DAILY@1600 12/18/23 12/18/23 History Levothyroxine Sodium [Synthroid] 25 mcg PO DAILY 12/18/23 12/18/23 History Losartan [Cozaar] 50 mg PO DAILY 12/18/23 12/18/23 History Pravastatin Sodium [Pravachol] 20 mg PO DAILY 12/18/23 12/18/23 History risperiDONE [RisperDAL] 1 mg PO HS 12/18/23 12/18/23 History Allergies Allergy/AdvReac Type Severity Reaction Status Date / Time Milk Containing Products Allergy Unknown Swelling Verified 12/18/23 11:38 (Dairy) [Dairy] doxycycline Allergy Anaphylaxis Verified 12/18/23 11:38 Physical Exam Vitals: Vital Signs Temp Pulse Resp BP Pulse Ox 12/18/23 14:56 114 H 24 155/93 96 12/18/23 13:02 95 12/18/23 12:59 117 H 80 L 12/18/23 11:33 100 12/18/23 11:25 98 12/18/23 11:06 96 20 125/88 100 12/18/23 10:13 97.3 F L 109 H 22 167/108 98 Intake and Output 05/08/24 05/08/24 05/08/24 06:59 14:59 22:59 Other: Weight 49.895 kg GENERAL EXAM: Alert, pleasant 68-year-old female, appears older than stated age, on 5 L nasal cannula, comfortable in no apparent distress. HEAD: Normocephalic. EYES: Normal reaction of pupils, equal size. NOSE: Clear with pink turbinates. THROAT: No erythema or exudates. NECK: No masses, no JVD. CHEST: No chest wall deformity. LUNGS: Equal air entry with no crackles, wheeze, rhonchi or dullness. Diminished. CVS: S1 and S2 normal with no audible murmur, regular rhythm. ABDOMEN: No hepatosplenomegaly, normal bowel sounds, no guarding or rigidity. SPINE: No scoliosis or deformity SKIN: No rashes CENTRAL NERVOUS SYSTEM: No focal deficits, tone is normal in all 4 extremities. EXTREMITIES: There is no peripheral edema. No clubbing, no cyanosis. Peripheral pulses are intact. Results - Laboratory Findings CBC and BMP: 12/18/23 10:51 12/18/23 10:47 PT/INR, D-dimer PT 11.0 sec (10.0-12.5) 12/18/23 10:47 INR 1.0 (<1.2) 12/18/23 10:47 Abnormal lab findings: Abnormal Labs 12/18/23 12/18/23 12/18/23 10:47 10:47 10:47 Neutrophils # Lymphocytes # APTT 21.1 L Sodium 130 L Chloride 90 L Carbon Dioxide 36 H Glucose 108 H AST 93 H ALT 144 H Troponin I 0.054 H* Total Protein 6.1 L 12/18/23 10:51 Neutrophils # 8.6 H Lymphocytes # 0.4 L APTT Sodium Chloride Carbon Dioxide Glucose AST ALT Troponin I Total Protein - Diagnostic Findings Chest x-ray: image reviewed Assessment and Plan Assessment: Acute on chronic hypoxemic respiratory failure secondary to an acute exacerbation of chronic obstructive pulmonary disease. D-dimer 0.38 Troponin leak, suspect oxygen supply and demand mismatch Former smoker Hyperlipidemia Hypothyroidism Hypertension Plan: The patient was seen and evaluated Chest x-ray, labs and medications reviewed D-dimer negative, no need for CT angiogram Initiate DuoNeb inhalations, Symbicort Initiated a prednisone taper Remains on a heparin drip for now Currently on azithromycin Check a procalcitonin We will continue to follow and make further recommendations based on her clinical status I have personally seen and examined the patient, performed the documentation and the assessment and plan as written. Number of minutes spent on the visit: 20.
[2023-12-18] MEDS: IPRATROPIUM-ALBUTEROL 3 ML NEB INHALATION SCH (15:48)
[2023-12-18] MEDS: predniSONE 20 MG TAB PO SCH (16:22)
[2023-12-18] MEDS: SYMBICORT 160-4.5 MCG INHALER INHALATION SCH (20:23)
[2023-12-18] MEDS: ACETAMINOPHEN TAB 325 MG TAB PO PRN (20:46)
[2023-12-19] MEDS: PRAVASTATIN SODIUM 20 MG TAB PO SCH (09:29)
[2023-12-19] MEDS: LEVOTHYROXINE 25 MCG TAB PO SCH (09:30)
[2023-12-19] MEDS: FUROSEMIDE 20 MG TAB PO SCH (09:30)
[2023-12-19] MEDS: LOSARTAN 50 MG TAB PO SCH (09:31)
--- NOTE | 2023-12-19 10:48 | P.CRDCN ---
History of Present Illness Consult date: 12/19/23 Reason for Consult (text): COPD, elevated BNP and troponins History of present illness: History of present illness: This is a 68-year-old female with past medical history of hypertension, hyperlipidemia, hypothyroidism, COPD, chronic hypoxic respiratory failure on home O2 at 2 L nasal cannula. We have been asked to evaluate the patient for COPD, elevated BNP and troponins. Patient is a poor historian. She apparently came into the hospital due to shortness of breath. Patient denies having any chest pain. No lightheadedness or dizziness. No history of cardiac cath. Patient has been started on a heparin drip. Patient is seen today in the emergency center waiting for a bed on the cardiac stepdown unit. EKG sinus tachycardia at 107 bpm Chest x-ray: No acute cardiopulmonary disease. CBC unremarkable. INR 1. D-dimer 0.38. Troponin 0.054, 0.046, 0.045. AST 93, ALT 144. proBNP 2750. BUN 17 creatinine 0.6. Sodium 130, potassium 4, chloride 90, CO2 36. Home cardiac medications: Lasix 20 mg twice daily, losartan 50 mg daily, pravastatin 20 mg daily. Stress echocardiogram performed 11/24/2018 revealed negative stress test with fair exercise capacity by EKG. Normal stress echocardiogram. Review Of Systems: At the time of my exam: CONSTITUTIONAL: Denies fever or chills. HEENT: Denies blurred vision, vision changes, or eye pain. Denies hemoptysis CARDIOVASCULAR: Denies chest pain. Denies orthopnea. Denies PND. Denies pa lpitations RESPIRATORY: + shortness of breath. GASTROINTESTINAL: Denies abdominal pain. Denies nausea or vomiting. HEMATOLOGIC: Denies bleeding disorders. GENITOURINARY: Denies any blood in urine. SKIN: Denies pruitis. Denies rash. Physical examination: Gen: This is a 68-year-old female in no acute distress VS: reviewed, blood pressure 128/78, heart rate 113, respiratory rate 24, pulse ox 94% on 4 L nasal cannula. HEENT: Head is atraumatic, normocephalic. Pupils equal, round. Sclerae is anic teric. NECK: Supple. No JVD. LUNGS: Dimished lung sounds. No intercostal retractions. HEART: Regular rate and rhythm. No murmur. ABDOMEN: Soft No tenderness. EXTREMITIES: No pedal edema. No calf tenderness. NEUROLOGICAL: Patient is awake, alert and oriented x3. Assessment: Elevated troponins COPD exacerbation Hypertension Hyperlipidemia Hypothyroidism Plan: Resume patient's home cardiac medications Obtain TSH and free T4 Continue heparin drip Obtain 2-D echocardiogram and Doppler study to assess cardiac structure and function Further recommendations to follow based upon clinical course Thank you kindly for this consultation. Nurse practitioner note has been reviewed, I agree with documented findings and plan of care. Patient was seen and examined. Past Medical History Past Medical History: Asthma, COPD, Hyperlipidemia, Hypertension Additional Past Medical History / Comment(s): emphysema. History of Any Multi-Drug Resistant Organisms: None Reported Past Surgical History: Adenoidectomy, Appendectomy, Back Surgery, Section, Hysterectomy, Tonsillectomy Past Anesthesia/Blood Transfusion Reactions: No Reported Reaction Past Psychological History: Schizophrenia Smoking Status: Former smoker Past Alcohol Use History: Occasional Past Drug Use History: None Reported - Past Family History Mother Family Medical History: COPD Medications and Allergies Home Medications Medication Instructions Recorded Confirmed Type Budesonide-Formot 160-4.5 Mcg 2 puff INHALATION RT-BID@1000,2200 11/04/15 12/18/23 History [Symbicort 160-4.5 Mcg Inhaler] Furosemide [Lasix] 20 mg PO BID 01/09/16 12/18/23 History Albuterol Inhaler [Ventolin Hfa 1 - 2 puff INHALATION RT-QID PRN 12/18/23 12/18/23 History Inhaler] Albuterol Inhaler [Ventolin Hfa 2 puff INHALATION RT-DAILY@0800 12/18/23 12/18/23 History Inhaler] Calcium Carbonate [Calcium] 600 mg PO DAILY 12/18/23 12/18/23 History Cholecalciferol [Vitamin D3 (25 25 mcg PO DAILY 12/18/23 12/18/23 History Mcg = 1000 Iu)] Fluticasone/Umeclidin/Vilanter 1 puff INHALATION RT-DAILY@1030 12/18/23 12/18/23 History [Trelegy Ellipta 100-62.5-25] Levofloxacin [Levaquin] 250 mg PO DAILY@1600 12/18/23 12/18/23 History Levothyroxine Sodium [Synthroid] 25 mcg PO DAILY 12/18/23 12/18/23 History Losartan [Cozaar] 50 mg PO DAILY 12/18/23 12/18/23 History Pravastatin Sodium [Pravachol] 20 mg PO DAILY 12/18/23 12/18/23 History risperiDONE [RisperDAL] 1 mg PO HS 12/18/23 12/18/23 History Allergies Allergy/AdvReac Type Severity Reaction Status Date / Time Milk Containing Products Allergy Unknown Swelling Verified 12/18/23 11:38 (Dairy) [Dairy] doxycycline Allergy Anaphylaxis Verified 12/18/23 11:38 Physical Exam Vitals: Vital Signs Temp Pulse Resp BP Pulse Ox 12/19/23 08:49 113 H 24 128/78 94 L 12/19/23 08:40 36 H 55 L 12/19/23 08:26 104 H 12/19/23 08:10 92 12/19/23 06:16 98.9 F 82 15 173/97 98 12/19/23 05:05 79 12 99 12/19/23 04:05 79 12 154/95 97 12/19/23 02:21 91 L 12/19/23 02:15 99.4 F 85 18 151/95 96 12/19/23 00:28 93 13 140/94 98 12/18/23 23:00 90 19 138/99 98 12/18/23 21:22 99.6 F 96 20 100 12/18/23 20:48 104 H 18 150/88 98 12/18/23 19:48 99.9 F H 103 H 18 131/87 98 12/18/23 18:22 105 H 20 129/85 100 12/18/23 16:25 116 H 22 147/98 91 L 12/18/23 15:59 115 H 12/18/23 15:51 107 H 12/18/23 14:56 114 H 24 155/93 96 12/18/23 13:02 95 12/18/23 12:59 117 H 80 L 12/18/23 11:33 100 12/18/23 11:25 98 12/18/23 11:06 96 20 125/88 100 12/18/23 10:13 97.3 F L 109 H 22 167/108 98 Intake and Output 12/18/23 12/19/23 12/19/23 22:59 06:59 14:59 Intake Total 41.211 Balance 41.211 Intake: Intake, IV Titration 41.211 Amount Heparin Sod,Pork in 0.45% 41.211 NaCl 25,000 unit In 0.45 % NaCl 1 250ml.bag @ 12 UNITS/KG/HR 5.987 mls/hr IV .Q24H [facility] Rx#: [id number] Results 12/18/23 10:51 12/18/23 10:47 Cardiac Enzymes 12/18/23 12/18/23 12/18/23 Range/Units 10:47 10:47 14:30 AST 93 H (14-36) U/L Troponin I 0.054 H* 0.046 H* (0.000-0.034) ng/mL 12/18/23 Range/Units 16:25 AST (14-36) U/L Troponin I 0.045 H* (0.000-0.034) ng/mL Coagulation 12/18/23 12/18/23 12/19/23 Range/Units 10:47 19:34 06:41 PT 11.0 (10.0-12.5) sec APTT 21.1 L 44.1 H 47.2 H (22.0-30.0) sec CBC 12/18/23 Range/Units 10:51 WBC 9.8 (3.8-10.6) k/uL RBC 4.14 (3.80-5.40) m/uL Hgb 13.5 (11.4-16.0) gm/dL Hct 39.9 (34.0-46.0) % Plt Count 294 (150-450) k/uL Comprehensive Metabolic Panel 12/18/23 Range/Units 10:47 Sodium 130 L (137-145) mmol/L Potassium 4.0 (3.5-5.1) mmol/L Chloride 90 L (98-107) mmol/L Carbon Dioxide 36 H (22-30) mmol/L BUN 17 (7-17) mg/dL Creatinine 0.60 (0.52-1.04) mg/dL Glucose 108 H (74-99) mg/dL Calcium 9.1 (8.4-10.2) mg/dL AST 93 H (14-36) U/L ALT 144 H (4-34) U/L Alkaline Phosphatase 42 (38-126) U/L Total Protein 6.1 L (6.3-8.2) g/dL Albumin 4.0 (3.5-5.0) g/dL Current Medications Generic Name Dose Route Start Last Admin Trade Name Salvatore PRN Reason Stop Dose Admin Acetaminophen 650 mg 12/18/23 20:27 12/18/23 20:46 Acetaminophen Tab 325 Mg Tab PO 650 mg Q8HR PRN Administration Fever and/ or Pain Albuterol/Ipratropium 3 ml 12/18/23 16:00 12/19/23 08:09 Ipratropium-Albuterol 3 Ml Neb INHALATION 3 ml RT-QID LUIS FERNANDO Administration Azithromycin 500 mg 12/18/23 13:15 12/19/23 08:50 Azithromycin 500 Mg Tab PO 12/20/23 09:01 500 mg DAILY LUIS FERNANDO Administration Protocol Budesonide/Formoterol Fumarate 2 puff 12/18/23 20:00 12/19/23 08:09 Symbicort 160-4.5 Mcg Inhaler INHALATION 2 puff RT-BID LUIS FERNANDO Administration Heparin Sodium (Porcine) 0 unit 12/18/23 13:09 Heparin Sodium 1,000 Un/Ml (10ml Vl) IV PER PROTOCOL PRN Low PTT Protocol Heparin Sodium/Sodium Chloride 250 mls @ 5.987 mls/hr 12/18/23 13:15 12/18/23 20:54 25,000 unit/ Sodium Chloride IV 12 units/kg/hr .Q24H LUIS FERNANDO 5.987 mls/hr Titration Protocol 12 UNITS/KG/HR Naloxone HCl 0.2 mg 12/18/23 13:05 Naloxone 0.4 Mg/Ml 1 Ml Vial IVP Q2M PRN Opioid Reversal Prednisone 40 mg 12/18/23 15:30 12/19/23 08:51 Prednisone 20 Mg Tab PO Not Given DAILY LUIS FERNANDO Intake and Output 12/18/23 12/19/23 12/19/23 22:59 06:59 14:59 Intake Total 41.211 Balance 41.211 Intake: Intake, IV Titration 41.211 Amount Heparin Sod,Pork in 0.45% 41.211 NaCl 25,000 unit In 0.45 % NaCl 1 250ml.bag @ 12 UNITS/KG/HR 5.987 mls/hr IV .Q24H [facility] FERNANDO Rx#: [id number] 12/18/23 10:51 12/18/23 10:47
--- NOTE | 2023-12-19 14:20 | P.PN ---
Subjective Progress Note Date: 12/19/23 This is a 68-year-old female patient with a known history of chronic tobacco dependence quit in 2009, chronic obstructive pulmonary disease, oxygen dependent, hyperlipidemia, hypothyroidism, hypertension who presented to the emergency room earlier today with complaints of increasing shortness of breath stating her apartment gets either too hot or too cold for her causing her shortness of breath. She is normally on oxygen at 3 L/min per nasal cannula at home. Her oxygen dropped to 80% with minimal activity. She is seen in consultation in the ER. She is on 5 L nasal cannula with O2 saturation at 96 she is afebrile. Hemodynamically stable. White count 9.8. Hemoglobin 13.5. Platelets 294. Sodium 130. Potassium 4.0. Bicarb 36. BUN 17. Creatinine 0.6. Glucose 108. D-dimer 0.38. Chest x-ray reveals no acute pulmonary process. The patient is seen today December 19, 2023 in follow-up in the emergency department. She is sitting up on the stretcher. Awake and alert in no acute distress. B reathing easier today compared to yesterday. She is maintaining good O2 saturations in the 90s on 3 L/min per nasal cannula. She has been afebrile. Hemodynamically stable. He remains on a heparin drip. Continued on DuoNeb ventilations, Symbicort, prednisone taper. Empiric antibiotics in the form of azithromycin. Remains on oral diuretics. Objective - Vital Signs Vital signs: Vital Signs Temp 98.9 F 12/19/23 06:16 Pulse 107 H 12/19/23 12:00 Resp 18 12/19/23 12:00 BP 107/76 12/19/23 12:00 Pulse Ox 94 L 12/19/23 12:00 FiO2 Intake & Output 12/18/23 12/19/23 12/19/23 18:59 06:59 18:59 Intake Total 41.211 Balance 41.211 Weight 49.895 kg Intake: Intake, IV Titration 41.211 Amount Heparin Sod,Pork in 0.45% 41.211 NaCl 25,000 unit In 0.45 % NaCl 1 250ml.bag @ 12 UNITS/KG/HR 5.987 mls/hr IV .Q24H [facility] Rx#: [id number] - Exam GENERAL EXAM: Alert, 68-year-old female, appears older than stated age, on 3 L nasal cannula, in no apparent distress. HEAD: Normocephalic. EYES: Normal reaction of pupils, equal size. NOSE: Clear with pink turbinates. THROAT: No erythema or exudates. NECK: No masses, no JVD. CHEST: No chest wall deformity. LUNGS: Equal air entry with no crackles, wheeze, rhonchi or dullness. Diminished. CVS: S1 and S2 normal with no audible murmur, regular rhythm. ABDOMEN: No hepatosplenomegaly, normal bowel sounds, no guarding or rigidity. SPINE: No scoliosis or deformity SKIN: No rashes CENTRAL NERVOUS SYSTEM: No focal deficits, tone is normal in all 4 extremities. EXTREMITIES: There is no peripheral edema. No clubbing, no cyanosis. Peripheral pulses are intact. - Labs CBC & Chem 7: 12/18/23 10:51 12/18/23 10:47 Labs: Abnormal Lab Results - Last 24 Hours (Table) 12/18/23 12/18/23 12/18/23 Range/Units 14:30 16:25 19:34 APTT 44.1 H (22.0-30.0) sec Troponin I 0.046 H* 0.045 H* (0.000-0.034) ng/mL 12/19/23 Range/Units 06:41 APTT 47.2 H (22.0-30.0) sec Troponin I (0.000-0.034) ng/mL Assessment and Plan Assessment: Acute on chronic hypoxemic respiratory failure secondary to an acute exacerbati on of chronic obstructive pulmonary disease. D-dimer 0.38. Procalcitonin 0.07 Troponin leak, suspect oxygen supply and demand mismatch, currently on heparin drip. Echocardiogram pending Former smoker Hyperlipidemia Hypothyroidism Hypertension Plan: The patient was seen and evaluated Labs and medications reviewed Procalcitonin negative, discontinue antibiotic Continue bronchodilators, steroids Remains on a heparin drip Echocardiogram pending We will continue to follow I have personally seen and examined the patient, performed the documentation and the assessment and plan as written. Number of minutes spent on the visit: 10.
[2023-12-19] MEDS: risperiDONE 1 MG TAB PO PRN (20:45)
--- NOTE | 2023-12-20 04:34 | HP ---
HISTORY AND PHYSICAL CHIEF COMPLAINT: Difficulty breathing. HISTORY OF PRESENT ILLNESS: Another admission for this 68-year-old white female with severe COPD. She stopped smoking for many years. She lives alone and hardly even get out of her dwelling. She is on oxygen all the time and intermittently gets into difficulty and has been treated by [facility] with steroids and antibiotics as necessary. She came in to the emergency room this time, expected to get treated and go home, but her troponin is elevated as is her BNP. She denies any chest pain, orthopnea, fever, chills, etc. Pulse ox has dropped down as low as 60 in the emergency room. REVIEW OF SYSTEMS: She denies any headaches, confusion, chest pain, hemoptysis, abdominal pain, orthopnea, PND, etc. Past medical history, family history, personal and social histories are otherwise unremarkable. ALLERGIES: She is allergic to Lipitor, dairy products, as well as tetracyclines. PHYSICAL EXAMINATION: VITAL SIGNS: Normal. Respirations are 38. GENERAL: She appeared to be small, dehydrated and marginally nourished. She was very dyspneic. HEENT: Head, throat were otherwise normal. CHEST: Demonstrated extremely poor breath sounds with increased AP diameter. There are no significant rales or rhonchi, but breath sounds are extremely poor and tight sounding. CARDIAC: Demonstrated sinus tachycardia with no murmurs or S3 or S4. ABDOMEN: Soft. EXTREMITIES: Unremarkable. NEUROLOGICAL: She is intact. DIAGNOSES: She is admitted to the hospital with diagnoses, 1. . 2. Elevated troponin. PLAN: 1. Bed rest. 2. IV fluids. 3. Updrafts. 4. Steroids. 5. Consult pulmonology and Cardiology. MMODL / IJN: [id number] /
--- NOTE | 2023-12-20 06:53 | PN ---
PROGRESS NOTE DATE OF SERVICE: 12/19/2023 In the emergency room. CHIEF COMPLAINT: Exacerbated COPD with elevated BNP and troponin. HISTORY OF PRESENT ILLNESS: States that she is breathing a little bit better, although she is still very tachypneic sitting up in bed with oxygen and still struggling. PHYSICAL EXAMINATION: GENERAL: Her hydration is marginal. CHEST: Breath sounds are heard bilaterally, extremely poor. There are no significant rales or rhonchi. CARDIAC: Normal. ABDOMEN: Soft. IMPRESSION: 1. Exacerbation of COPD. 2. Elevated troponin. 3. Elevated BN. PLAN: Echocardiogram has been ordered and we await results of that, as well as cardiology's recommendations regarding her troponin. She is also being followed by pulmonology. MMODL / IJN: [id number] /
--- NOTE | 2023-12-20 10:36 | CA ---
Transthoracic Echo Report Name: Mary George Age: 68 Gender: F : 1955 Exam Date: 12/19/2023 14:04 Exam Location: [place] [facility] Ht (in): 61 Wt (lb): 110 Ordering Physician: Kelley Alcala Attending/Referring Phys: [id number], Fredrick Insole Doubler Emilee Foster RDCS Procedure CPT: Indications: LVF Cardiac Hx: Technical Quality: Fair Contrast 1: Total Dose (mL): Contrast 2: Total Dose (mL): MEASUREMENTS (Male / Female) Normal Values 2D ECHO LV Diastolic Diameter PLAX 2.5 cm 4.2 - 5.9 / 3.9 - 5.3 cm LV Systolic Diameter PLAX 2.0 cm IVS Diastolic Thickness 1.0 cm 0.6 - 1.0 / 0.6 - 0.9 cm LVPW Diastolic Thickness 0.9 cm 0.6 - 1.0 / 0.6 - 0.9 cm LV Relative Wall Thickness 0.7 RV Internal Dim ED PLAX 3.1 cm LA Systolic Diameter LX 2.2 cm 3.0 - 4.0 / 2.7 - 3.8 cm M-MODE Aortic Root Diameter MM 2.7 cm DOPPLER AV Peak Velocity 92.2 cm/s AV Peak Gradient 3.4 mmHg MV Area PHT 4.4 cm??? Mitral E Point Velocity 68.0 cm/s Mitral A Point Velocity 105.7 cm/s Mitral E to A Ratio 0.6 MV Deceleration Time 172.3 ms FINDINGS Left Ventricle Left ventricular ejection fraction is estimated at 55-60 %. Small left ventricular cavity. Left ventricular wall thickness normal. Right Ventricle Normal right ventricular size and function. Right Atrium Right atrium not well visualized. Left Atrium Normal left atrial size. Mitral Valve Mitral annular calcification. Aortic Valve Aortic valve sclerosis. No aortic valve stenosis or regurgitation. Tricuspid Valve Structurally normal tricuspid valve. No tricuspid stenosis, regurgitation or prolapse. Pulmonic Valve Pulmonic valve not well visualized. No pulmonic regurgitation. Pericardium No pericardial effusion. Aorta Normal size aortic root and proximal ascending aorta. CONCLUSIONS Technically difficult study for interpretation Normal LV systolic function Poorly visualized intracardiac valves Poorly visualized aortic valve. The valve appeared to be thickened Previewed by: Dr. Naveen Santo MD (Electronically Signed) Final Date: 20 Dec 2023 10:35
[2023-12-20 13:32] LABS: African American GFR (CKD) >90 (>60 ml/min/1.73 sqM); Anion Gap -1 mmol/L; Blood Urea Nitrogen 18 mg/dL (7-17); Calcium 8.8 mg/dL (8.4-10.2); Carbon Dioxide 39 mmol/L (22-30); Chloride 90 mmol/L (98-107); Glucose 92 mg/dL (74-99); Non-African American GFR(CKD) >90 (>60 ml/min/1.73 sqM); Sodium 128 mmol/L (137-145)
[2023-12-20 13:41] LABS: Potassium 4.3 mmol/L (3.5-5.1)
--- NOTE | 2023-12-20 14:21 | P.PN ---
Subjective Progress Note Date: 12/20/23 Principal diagnosis: Acute on chronic hypoxic respiratory failure with acute exacerbation of COPD This is a 68-year-old female patient with a known history of chronic tobacco dep endence quit in 2009, chronic obstructive pulmonary disease, oxygen dependent, hyperlipidemia, hypothyroidism, hypertension who presented to the emergency room earlier today with complaints of increasing shortness of breath stating her apartment gets either too hot or too cold for her causing her shortness of breath. She is normally on oxygen at 3 L/min per nasal cannula at home. Her oxygen dropped to 80% with minimal activity. She is seen in consultation in the ER. She is on 5 L nasal cannula with O2 saturation at 96 she is afebrile. Hemodynamically stable. White count 9.8. Hemoglobin 13.5. Platelets 294. Sodium 130. Potassium 4.0. Bicarb 36. BUN 17. Creatinine 0.6. Glucose 108. D-dimer 0.38. Chest x-ray reveals no acute pulmonary process. The patient is seen today December 19, 2023 in follow-up in the emergency department. She is sitting up on the stretcher. Awake and alert in no acute distress. Breathing easier today compared to yesterday. She is maintaining good O2 s aturations in the 90s on 3 L/min per nasal cannula. She has been afebrile. Hemodynamically stable. He remains on a heparin drip. Continued on DuoNeb ventilations, Symbicort, prednisone taper. Empiric antibiotics in the form of azithromycin. Remains on oral diuretics. Patient was eval today on December 1905/2024, patient is doing better, breathing easier, based on examination she clearly has severe underlying COPD. She has very diminished breath sound bilaterally no rhonchi no wheezes. She is on bronchodilators, antibiotics, she is also on 6 prednisone taper. Was empirically on antibiotic which was discontinued because of normal procalcitonin level. Overall the patient is feeling better, breathing easier, Objective - Vital Signs Vital signs: Vital Signs Temp 97.5 F L 12/20/23 08:00 Pulse 90 12/20/23 10:27 Resp 17 12/20/23 08:00 BP 168/88 12/20/23 08:00 Pulse Ox 98 12/20/23 10:13 FiO2 Intake & Output 12/19/23 12/20/23 12/20/23 18:59 06:59 18:59 Intake Total 187.792 Balance 187.792 Weight 49.895 kg Intake: Intake, IV Titration 187.792 Amount Heparin Sod,Pork in 0.45% 187.792 NaCl 25,000 unit In 0.45 % NaCl 1 250ml.bag @ 12 UNITS/KG/HR 5.987 mls/hr IV .Q24H [facility] Rx#: [id number] Other: Voiding Method Bedside Commode # Voids 1 1 1 # Bowel Movements 1 1 - Exam GENERAL EXAM: Alert, 68-year-old female, appears older than stated age, on 2 L nasal cannula O2 sat is 98% HEAD: Normocephalic. EYES: Normal reaction of pupils, equal size. NOSE: Clear with pink turbinates. THROAT: No erythema or exudates. NECK: No masses, no JVD. CHEST: No chest wall deformity. LUNGS: Equal air entry with no crackles, wheeze, rhonchi or dullness. Diminished. CVS: S1 and S2 normal with no audible murmur, regular rhythm. ABDOMEN: No hepatosplenomegaly, normal bowel sounds, no guarding or rigidity. SKIN: No rashes CENTRAL NERVOUS SYSTEM: No focal deficits, tone is normal in all 4 extremities. EXTREMITIES: No clubbing edema or cyanosis - Labs CBC & Chem 7: 12/18/23 10:51 12/20/23 12:25 Labs: Abnormal Lab Results - Last 24 Hours (Table) 12/20/23 12/20/23 Range/Units 12:25 12:25 APTT 34.7 H (22.0-30.0) sec Sodium 128 L (137-145) mmol/L Chloride 90 L (98-107) mmol/L Carbon Dioxide 39 H (22-30) mmol/L BUN 18 H (7-17) mg/dL Creatinine 0.41 L (0.52-1.04) mg/dL Assessment and Plan Assessment: Impression:Acute on chronic hypoxemic respiratory failure secondary to an acute exacerbation of chronic obstructive pulmonary disease. D-dimer 0.38. Procalcitonin 0.07 Troponin leak, suspect oxygen supply and demand mismatch, currently on heparin drip. Echocardiogram pending Former smoker Hyperlipidemia Hypothyroidism Hypertension Recommendation: Continue bronchodilators Continue steroids Reviewed the results of the echocardiogram, basically unremarkable. Cardiology to decide regarding heparin Will continue to follow and continue bronchodilators at the same time patient is now on prednisone 40 mg to be tapered on outpatient basis Will follow and will recommend discharge planning once cleared by cardiology Time with Patient: Less than 30
--- NOTE | 2023-12-20 15:22 | P.PN ---
Subjective Progress Note Date: 12/20/23 Reason for Consult (text): COPD, elevated BNP and troponins History of present illness: History of present illness: This is a 68-year-old female with past medical history of hypertension, hyperlipidemia, hypothyroidism, COPD, chronic hypoxic respiratory failure on home O2 at 2 L nasal cannula. We have been asked to evaluate the patient for COPD, elevated BNP and troponins. Patient is a poor historian. She apparently came into the hospital due to shortness of breath. Patient denies having any chest pain. No lightheadedness or dizziness. No history of cardiac cath. Patient has been started on a heparin drip. Patient is seen today in the [facility] waiting for a bed on the cardiac stepdown unit. EKG sinus tachycardia at 107 bpm Chest x-ray: No acute cardiopulmonary disease. CBC unremarkable. INR 1. D-dimer 0.38. Troponin 0.054, 0.046, 0.045. AST 93, ALT 144. proBNP 2750. BUN 17 creatinine 0.6. Sodium 130, potassium 4, chl oride 90, CO2 36. Home cardiac medications: Lasix 20 mg twice daily, losartan 50 mg daily, pravastatin 20 mg daily. Stress echocardiogram performed 11/24/2018 revealed negative stress test with fair exercise capacity by EKG. Normal stress echocardiogram. 12/19 Patient is seen today in follow up. Patient continues to have cough. Blood pressure 168/88, heart rate 90, pulse ox 98% on 2 L nasal cannula. Repeat blood work reveals sodium 128, potassium 4.3, BUN 18 creatinine 0.41. TSH 2.23. Patient denies having any chest pain. Patient is followed by pulmonary medicine for COPD exacerbation. Echocardiogram reveals technically difficult study. Normal LV systolic function fairly poorly visualized intracardiac valves. Poorly visualized aortic valve but of valve appears to be thickened. Results of the echocardiogram reviewed with the patient. Physical examination: Gen: This is a 68-year-old female in no acute distress VS: reviewed, blood pressure 128/78, heart rate 113, respiratory rate 24, pulse ox 94% on 4 L nasal cannula. HEENT: Head is atraumatic, normocephalic. Pupils equal, round. Sclerae is anicteric. NECK: Supple. No JVD. LUNGS: Dimished lung sounds. No intercostal retractions. HEART: Regular rate and rhythm. No murmur. ABDOMEN: Soft No tenderness. EXTREMITIES: No pedal edema. No calf tenderness. NEUROLOGICAL: Patient is awake, alert and oriented x3. Assessment: Elevated troponins not indicative of acute coronary syndrome COPD exacerbation Hypertension Hyperlipidemia Hypothyroidism Plan: Continue patient's home cardiac medications Discontinue heparin drip Cardiology will sign off this case and follow on an as-needed basis. Please reconsult for any new concerns. Patient may follow-up in the office in one to 2 weeks. Nurse practitioner note has been reviewed, I agree with documented findings and plan of care. Patient was seen and examined. Objective - Vital Signs Vital signs: Vital Signs Temp 97.5 F L 12/20/23 08:00 Pulse 90 12/20/23 10:27 Resp 17 12/20/23 08:00 BP 168/88 12/20/23 08:00 Pulse Ox 98 12/20/23 10:13 FiO2 Intake & Output 12/19/23 12/20/23 12/20/23 18:59 06:59 18:59 Intake Total 187.792 Balance 187.792 Weight 49.895 kg 49.895 kg Intake: Intake, IV Titration 187.792 Amount Heparin Sod,Pork in 0.45% 187.792 NaCl 25,000 unit In 0.45 % NaCl 1 250ml.bag @ 12 UNITS/KG/HR 5.987 mls/hr IV .Q24H [facility] Rx#: [id number] Other: Voiding Method Bedside Commode # Voids 1 1 1 # Bowel Movements 1 1 - Labs CBC & Chem 7: 12/18/23 10:51 12/20/23 12:25 Labs: Abnormal Lab Results - Last 24 Hours (Table) 12/20/23 12/20/23 Range/Units 12:25 12:25 APTT 34.7 H (22.0-30.0) sec Sodium 128 L (137-145) mmol/L Chloride 90 L (98-107) mmol/L Carbon Dioxide 39 H (22-30) mmol/L BUN 18 H (7-17) mg/dL Creatinine 0.41 L (0.52-1.04) mg/dL
--- NOTE | 2023-12-20 15:38 | P.PN ---
Subjective Progress Note Date: 12/20/23 68-year-old female patient with a known history of chronic tobacco dependence quit in 2009, chronic obstructive pulmonary disease, oxygen dependent, hyperlipidemia, hypothyroidism, hypertension who presented to the emergency room earlier today with complaints of increasing shortness of breath stating her apartment gets either too hot or too cold for her causing her shortness of breath. She is normally on oxygen at 3 L/min per nasal cannula at home. Her oxygen dropped to 80% with minimal activity. She is seen in consultation in the ER. She is on 5 L nasal cannula with O2 saturation at 96 she is afebrile. Hemodynamically stable. White count 9.8. Hemoglobin 13.5. Platelets 294. Sodium 130. Potassium 4.0. Bicarb 36. BUN 17. Creatinine 0.6. Glucose 108. D-dimer 0.38. Chest x-ray reveals no acute pulmonary process. Objective - Vital Signs Vital signs: Vital Signs Temp 97.9 F 12/20/23 04:00 Pulse 90 12/20/23 10:27 Resp 20 12/20/23 04:00 BP 119/73 12/20/23 04:00 Pulse Ox 98 12/20/23 10:13 FiO2 Intake & Output 12/19/23 12/20/23 12/20/23 18:59 06:59 18:59 Intake Total 187.792 Balance 187.792 Weight 49.895 kg Intake: Intake, IV Titration 187.792 Amount Heparin Sod,Pork in 0.45% 187.792 NaCl 25,000 unit In 0.45 % NaCl 1 250ml.bag @ 12 UNITS/KG/HR 5.987 mls/hr IV .Q24H [facility] Rx#: [id number] Other: Voiding Method Bedside Commode # Voids 1 1 # Bowel Movements 1 - Exam HEAD: Normocephalic. EYES: Normal reaction of pupils, equal size. THROAT: No erythema or exudates. NECK: No masses, no JVD. CHEST: No chest wall deformity. LUNGS: Equal air entry with no crackles, wheeze, rhonchi or dullness. Diminished. CVS: S1 and S2 normal with no audible murmur, regular rhythm. ABDOMEN: No hepatosplenomegaly, normal bowel sounds, no guarding or rigidity. CENTRAL NERVOUS SYSTEM: No focal deficits, tone is normal in all 4 extremities. EXTREMITIES: No clubbing edema or cyanosis - Labs CBC & Chem 7: 12/18/23 10:51 12/20/23 12:25 Assessment and Plan Assessment: Impression:Acute on chronic hypoxemic respiratory failure secondary to an acute exacerbation of chronic obstructive pulmonary disease. D-dimer 0.38. Procalcitonin 0.07 Troponin leak, suspect oxygen supply and demand mismatch, currently on heparin drip. Echocardiogram pending Former smoker Hyperlipidemia Hypothyroidism Hypertension Recommendation: Continue bronchodilators Continue steroids Reviewed the results of the echocardiogram, basically unremarkable. Cardiology to decide regarding heparin Will continue to follow and continue bronchodilators at the same time patient is now on prednisone 40 mg to be tapered on outpatient basis Will follow and will recommend discharge planning once cleared by cardiology
[2023-12-21 09:13] LABS: Basophils % (A) 0 %; Eosinophils # (A) 0.2 k/uL (0-0.7); Eosinophils % (A) 2 %; HCT 39.2 % (34.0-46.0); HGB 12.4 gm/dL (11.4-16.0); Lymphocytes # (A) 0.7 k/uL (1.0-4.8); Lymphocytes % (A) 8 %; MCH 31.1 pg (25.0-35.0); MCHC 31.6 g/dL (31.0-37.0); MCV 98.4 fL (80.0-100.0); Mean Platelet Volume 8.1; Monocytes # (A) 0.5 k/uL (0-1.0); Monocytes % (A) 7 %; Neutrophils # (A) 6.4 k/uL (1.3-7.7); Neutrophils % (A) 82 %; Platelet Count 267 k/uL (150-450); RBC 3.99 m/uL (3.80-5.40); RDW 12.7 % (11.5-15.5); WBC 7.8 k/uL (3.8-10.6)
[2023-12-21 09:37] LABS: African American GFR (CKD) >90 (>60 ml/min/1.73 sqM); Anion Gap 3 mmol/L; Blood Urea Nitrogen 20 mg/dL (7-17); Calcium 8.7 mg/dL (8.4-10.2); Carbon Dioxide 37 mmol/L (22-30); Chloride 90 mmol/L (98-107); Glucose 128 mg/dL (74-99); Non-African American GFR(CKD) >90 (>60 ml/min/1.73 sqM); Sodium 130 mmol/L (137-145)
--- NOTE | 2023-12-21 11:51 | P.PN ---
Subjective Progress Note Date: 12/21/23 Principal diagnosis: Acute on chronic hypoxic respiratory failure with acute exacerbation of COPD This is a 68-year-old female patient with a known history of chronic tobacco dep endence quit in 2009, chronic obstructive pulmonary disease, oxygen dependent, hyperlipidemia, hypothyroidism, hypertension who presented to the emergency room earlier today with complaints of increasing shortness of breath stating her apartment gets either too hot or too cold for her causing her shortness of breath. She is normally on oxygen at 3 L/min per nasal cannula at home. Her oxygen dropped to 80% with minimal activity. She is seen in consultation in the ER. She is on 5 L nasal cannula with O2 saturation at 96 she is afebrile. Hemodynamically stable. White count 9.8. Hemoglobin 13.5. Platelets 294. Sodium 130. Potassium 4.0. Bicarb 36. BUN 17. Creatinine 0.6. Glucose 108. D-dimer 0.38. Chest x-ray reveals no acute pulmonary process. The patient is seen today December 19, 2023 in follow-up in the emergency department. She is sitting up on the stretcher. Awake and alert in no acute distress. Breathing easier today compared to yesterday. She is maintaining good O2 s aturations in the 90s on 3 L/min per nasal cannula. She has been afebrile. Hemodynamically stable. He remains on a heparin drip. Continued on DuoNeb ventilations, Symbicort, prednisone taper. Empiric antibiotics in the form of azithromycin. Remains on oral diuretics. Patient was eval today on December 1905/2024, patient is doing better, breathing easier, based on examination she clearly has severe underlying COPD. She has very diminished breath sound bilaterally no rhonchi no wheezes. She is on bronchodilators, antibiotics, she is also on 6 prednisone taper. Was empirically on antibiotic which was discontinued because of normal procalcitonin level. Overall the patient is feeling better, breathing easier, Patient was reevaluated today on 12/21/2023, patient is doing well, relatively asymptomatic, hardly any cough or wheezing, she does have chronic end-stage COPD and severe emphysema, patient is already on home oxygen, she does have all the bronchodilators at home, hence I am recommending discharging the patient home and follow-up on outpatient basis. As long as she is cleared by other consultants on the case. She was seen by cardiology for elevated troponin, felt to be none indicative of acute coronary syndrome. Hence heparin was discontinued, and cardiology signed off. And I for 1 I am clearing the patient for discharge home Objective - Vital Signs Vital signs: Vital Signs Temp 98.5 F 12/21/23 08:00 Pulse 99 12/21/23 08:00 Resp 20 12/21/23 08:00 BP 93/62 12/21/23 08:00 Pulse Ox 94 L 12/21/23 08:00 FiO2 Intake & Output 12/20/23 12/21/23 12/21/23 18:59 06:59 18:59 Intake Total 480 240 Balance 480 240 Weight 49.895 kg Intake: Oral 480 240 Other: Voiding Method Bedside Commode Bedside Commode # Voids 3 1 # Bowel Movements 1 1 - Exam GENERAL EXAM: Alert, 68-year-old female, appears older than stated age, on 2 L nasal cannula O2 sat is 98% HEAD: Normocephalic. EYES: Normal reaction of pupils, equal size. NOSE: Clear with pink turbinates. THROAT: No erythema or exudates. NECK: No masses, no JVD. CHEST: No chest wall deformity. LUNGS: Equal air entry with no crackles, wheeze, rhonchi or dullness. Diminished. Breath sounds at the bases CVS: S1 and S2 normal with no audible murmur, regular rhythm. ABDOMEN: No hepatosplenomegaly, normal bowel sounds, no guarding or rigidity. SKIN: No rashes CENTRAL NERVOUS SYSTEM: No focal deficits, tone is normal in all 4 extremities. EXTREMITIES: No clubbing edema or cyanosis - Labs CBC & Chem 7: 12/21/23 08:08 12/21/23 08:08 Labs: Abnormal Lab Results - Last 24 Hours (Table) 12/20/23 12/20/23 12/21/23 Range/Units 12:25 12:25 08:08 Lymphocytes # 0.7 L (1.0-4.8) k/uL APTT 34.7 H (22.0-30.0) sec Sodium 128 L (137-145) mmol/L Chloride 90 L (98-107) mmol/L Carbon Dioxide 39 H (22-30) mmol/L BUN 18 H (7-17) mg/dL Creatinine 0.41 L (0.52-1.04) mg/dL Glucose (74-99) mg/dL 12/21/23 Range/Units 08:08 Lymphocytes # (1.0-4.8) k/uL APTT (22.0-30.0) sec Sodium 130 L (137-145) mmol/L Chloride 90 L (98-107) mmol/L Carbon Dioxide 37 H (22-30) mmol/L BUN 20 H (7-17) mg/dL Creatinine 0.47 L (0.52-1.04) mg/dL Glucose 128 H (74-99) mg/dL Assessment and Plan Assessment: Impression:Acute on chronic hypoxemic respiratory failure secondary to an acute exacerbation of chronic obstructive pulmonary disease. D-dimer 0.38. Procalcitonin 0.07 Troponin leak, suspect oxygen supply and demand mismatch, currently on heparin drip. Echocardiogram pending Former smoker Hyperlipidemia Hypothyroidism Hypertension Recommendation: Will clear the patient to be discharged home and follow-up on outpatient basis Continue bronchodilators Oral prednisone and taper Cardiology already signed off and did not feel that the patient has any significant coronary artery disease or acute coronary syndrome Patient to follow-up with me on outpatient basis postdischarge Time with Patient: Less than 30
--- NOTE | 2023-12-21 15:35 | P.PN ---
Subjective 68-year-old female patient with a known history of chronic tobacco dependence quit in 2009, chronic obstructive pulmonary disease, oxygen dependent, hyperlipidemia, hypothyroidism, hypertension who presented to the emergency room earlier today with complaints of increasing shortness of breath stating her apartment gets either too hot or too cold for her causing her shortness of breath. She is normally on oxygen at 3 L/min per nasal cannula at home. Her oxygen dropped to 80% with minimal activity. She is seen in consultation in the ER. She is on 5 L nasal cannula with O2 saturation at 96 she is afebrile. Hemodynamically stable. White count 9.8. Hemoglobin 13.5. Platelets 294. Sodium 130. Potassium 4.0. Bicarb 36. BUN 17. Creatinine 0.6. Glucose 108. D-dimer 0.38. Chest x-ray reveals no acute pulmonary process. 12/21/2023 - patient is seen and evaluated in room at bedside; reports she is doing well, relatively asymptomatic, hardly any cough or wheezing, she does have chronic end-stage COPD and severe emphysema, patient is already on home oxygen, she does have all the bronchodilators at home; pulmonary services is on board and recommending discharging the patient home and follow-up on outpatient basis. - She was seen by cardiology for elevated troponin, felt to be none indicative of acute coronary syndrome. Hence heparin was discontinued, and cardiology signed off. Discharge planning discussed with the patient and she reports marked weakness; patient states that she is cares for herself at home; PT/OT is recommended and patient is agreeable; patient is also open for skilled rehab if such recommendation is made by PT/OT Objective - Vital Signs Vital signs: Vital Signs Temp 98.5 F 12/21/23 08:00 Pulse 99 12/21/23 08:00 Resp 20 12/21/23 08:00 BP 93/62 12/21/23 08:00 Pulse Ox 94 L 12/21/23 08:00 FiO2 Intake & Output 12/20/23 12/21/23 12/21/23 18:59 06:59 18:59 Intake Total 480 240 Balance 480 240 Weight 49.895 kg Intake: Oral 480 240 Other: Voiding Method Bedside Commode Bedside Commode # Voids 3 1 # Bowel Movements 1 1 - Exam HEAD: Normocephalic. EYES: Normal reaction of pupils, equal size. THROAT: No erythema or exudates. NECK: No masses, no JVD. CHEST: No chest wall deformity. LUNGS: Equal air entry with no crackles, wheeze, rhonchi or dullness. Diminished. CVS: S1 and S2 normal with no audible murmur, regular rhythm. ABDOMEN: No hepatosplenomegaly, normal bowel sounds, no guarding or rigidity. CENTRAL NERVOUS SYSTEM: No focal deficits, tone is normal in all 4 extremities. EXTREMITIES: No clubbing edema or cyanosis - Labs CBC & Chem 7: 12/21/23 08:08 12/21/23 08:08 Labs: Abnormal Lab Results - Last 24 Hours (Table) 12/20/23 12/20/23 12/21/23 Range/Units 12:25 12:25 08:08 Lymphocytes # 0.7 L (1.0-4.8) k/uL APTT 34.7 H (22.0-30.0) sec Sodium 128 L (137-145) mmol/L Chloride 90 L (98-107) mmol/L Carbon Dioxide 39 H (22-30) mmol/L BUN 18 H (7-17) mg/dL Creatinine 0.41 L (0.52-1.04) mg/dL Glucose (74-99) mg/dL 12/21/23 Range/Units 08:08 Lymphocytes # (1.0-4.8) k/uL APTT (22.0-30.0) sec Sodium 130 L (137-145) mmol/L Chloride 90 L (98-107) mmol/L Carbon Dioxide 37 H (22-30) mmol/L BUN 20 H (7-17) mg/dL Creatinine 0.47 L (0.52-1.04) mg/dL Glucose 128 H (74-99) mg/dL Assessment and Plan Assessment: Impression:Acute on chronic hypoxemic respiratory failure secondary to an acute exacerbation of chronic obstructive pulmonary disease. D-dimer 0.38. Procalcitonin 0.07 Troponin leak, suspect oxygen supply and demand mismatch, currently on heparin drip. Echocardiogram pending Former smoker Hyperlipidemia Hypothyroidism Hypertension Recommendation: Continue bronchodilators Continue steroids Reviewed the results of the echocardiogram, basically unremarkable. Cardiology to decide regarding heparin Will continue to follow and continue bronchodilators at the same time patient is now on prednisone 40 mg to be tapered on outpatient basis Will follow and will recommend discharge planning once cleared by cardiology
[2023-12-22 08:04] LABS: Basophils % (A) 0 %; Eosinophils # (A) 0.2 k/uL (0-0.7); Eosinophils % (A) 3 %; HCT 38.6 % (34.0-46.0); HGB 11.8 gm/dL (11.4-16.0); Lymphocytes # (A) 0.6 k/uL (1.0-4.8); Lymphocytes % (A) 9 %; MCH 30.7 pg (25.0-35.0); MCHC 30.5 g/dL (31.0-37.0); MCV 100.4 fL (80.0-100.0); Monocytes # (A) 0.5 k/uL (0-1.0); Monocytes % (A) 6 %; Neutrophils # (A) 5.7 k/uL (1.3-7.7); Neutrophils % (A) 80 %; Platelet Count 273 k/uL (150-450); RBC 3.85 m/uL (3.80-5.40); RDW 12.5 % (11.5-15.5); WBC 7.2 k/uL (3.8-10.6)
[2023-12-22 08:13] LABS: African American GFR (CKD) >90 (>60 ml/min/1.73 sqM); Blood Urea Nitrogen 29 mg/dL (7-17); Calcium 8.6 mg/dL (8.4-10.2); Chloride 91 mmol/L (98-107); Glucose 88 mg/dL (74-99); Non-African American GFR(CKD) >90 (>60 ml/min/1.73 sqM); Potassium 4.4 mmol/L (3.5-5.1); Sodium 129 mmol/L (137-145)
[2023-12-22 08:21] LABS: Anion Gap 1 mmol/L
[2023-12-22 08:32] LABS: Carbon Dioxide 37 mmol/L (22-30)
[2023-12-22 09:11] LABS: ABG Base Excess 9.8 mmol/L; ABG HCO3 38 mmol/L (21-25); ABG Oxygen Saturation 99.1 % (94-97); ABG PCO2 65 mmHg (35-45); ABG PH 7.37 (7.35-7.45); ABG PO2 122 mmHg (83-108); Allen Test Performed? Yes
[2023-12-22] MEDS: DEXAMETHASONE SOD PHOSPHATE 4 MG/ML 1 ML VIAL IVP STA (09:48)
--- NOTE | 2023-12-22 09:52 | XR ---
EXAMINATION TYPE: XR chest 1V portable DATE OF EXAM: 12/22/2023 Comparison: 12/18/2023 Clinical History: 68-year-old female Hypoxemia, shortness of breath Findings: Heart normal size. Aorta and pulmonary vasculature within normal limits. Possible trace right pleural effusion. Relative upper lung lucencies. Hyperinflation. Asymmetric prominence to the left hilum. S trandy atelectasis at the left base. Impression: 1. COPD. 2. Asymmetric left hilar soft tissue prominence could reflect an enlarged left main pulmonary artery in the setting of pulmonary arterial hypertension. Unable to exclude underlying adenopathy or mass. 3. Possible trace right pleural effusion.
[2023-12-22] MEDS ORDERED: RX INFO: IV CONTRAST WAS GIVEN 1 EACH MISC MISCELLANE PRN (14:51)
--- NOTE | 2023-12-22 14:55 | P.PN ---
Subjective Progress Note Date: 12/22/23 Principal diagnosis: Acute on chronic hypoxic respiratory failure with acute exacerbation of COPD This is a 68-year-old female patient with a known history of chronic tobacco dep endence quit in 2009, chronic obstructive pulmonary disease, oxygen dependent, hyperlipidemia, hypothyroidism, hypertension who presented to the emergency room earlier today with complaints of increasing shortness of breath stating her apartment gets either too hot or too cold for her causing her shortness of breath. She is normally on oxygen at 3 L/min per nasal cannula at home. Her oxygen dropped to 80% with minimal activity. She is seen in consultation in the ER. She is on 5 L nasal cannula with O2 saturation at 96 she is afebrile. Hemodynamically stable. White count 9.8. Hemoglobin 13.5. Platelets 294. Sodium 130. Potassium 4.0. Bicarb 36. BUN 17. Creatinine 0.6. Glucose 108. D-dimer 0.38. Chest x-ray reveals no acute pulmonary process. The patient is seen today December 19, 2023 in follow-up in the emergency department. She is sitting up on the stretcher. Awake and alert in no acute distress. Breathing easier today compared to yesterday. She is maintaining good O2 s aturations in the 90s on 3 L/min per nasal cannula. She has been afebrile. Hemodynamically stable. He remains on a heparin drip. Continued on DuoNeb ventilations, Symbicort, prednisone taper. Empiric antibiotics in the form of azithromycin. Remains on oral diuretics. Patient was eval today on December 1905/2024, patient is doing better, breathing easier, based on examination she clearly has severe underlying COPD. She has very diminished breath sound bilaterally no rhonchi no wheezes. She is on bronchodilators, antibiotics, she is also on 6 prednisone taper. Was empirically on antibiotic which was discontinued because of normal procalcitonin level. Overall the patient is feeling better, breathing easier, Patient was reevaluated today on 12/21/2023, patient is doing well, relatively asymptomatic, hardly any cough or wheezing, she does have chronic end-stage COPD and severe emphysema, patient is already on home oxygen, she does have all the bronchodilators at home, hence I am recommending discharging the patient home and follow-up on outpatient basis. As long as she is cleared by other consultants on the case. She was seen by cardiology for elevated troponin, felt to be none indicative of acute coronary syndrome. Hence heparin was discontinued, and cardiology signed off. And I for 1 I am clearing the patient for discharge home reevaluated today on 12/22/2023 I saw this patient in the morning, and she was doing well. However 2 hours after my evaluation, I was called about this patient having an episode of bronchospasm, and she was extremely short of breath. I recommended Decadron to be given also recommended that the patient goes on BiPAP, and a chest x-ray. Chest x-ray was reviewed, basically it is about the same, but she does have some left hilar fullness, hence I recommended a CT of the chest with contrast to rule out left hilar mass or adenopathy. In the meantime the patient responded well to treatment, and we will postpone plans for discharge home. Earlier I felt the patient could be discharged home, but considering the new development, discharge needs to be delayed for now. Objective - Vital Signs Vital signs: Vital Signs Temp 97.2 F L 12/22/23 12:47 Pulse 101 H 12/22/23 12:47 Resp 19 12/22/23 12:47 BP 124/82 12/22/23 12:47 Pulse Ox 99 12/22/23 12:47 FiO2 35 12/22/23 11:08 Intake & Output 12/21/23 12/22/23 12/22/23 18:59 06:59 18:59 Intake Total 780 600 Balance 780 600 Intake: Oral 780 600 Other: Voiding Method Bedside Commode Toilet Bedside Commode Diaper Incontinent # Voids 1 1 - Exam GENERAL EXAM: Alert, 68-year-old female, appears older than stated age, on 2 L nasal cannula O2 sat is 98% HEAD: Normocephalic. EYES: Normal reaction of pupils, equal size. NOSE: Clear with pink turbinates. THROAT: No erythema or exudates. NECK: No masses, no JVD. CHEST: No chest wall deformity. LUNGS: Equal air entry with no crackles, wheeze, rhonchi or dullness. Di minished. Breath sounds at the bases CVS: S1 and S2 normal with no audible murmur, regular rhythm. ABDOMEN: No hepatosplenomegaly, normal bowel sounds, no guarding or rigidity. SKIN: No rashes CENTRAL NERVOUS SYSTEM: No focal deficits, tone is normal in all 4 extremities. EXTREMITIES: No clubbing edema or cyanosis - Labs CBC & Chem 7: 12/22/23 07:12 12/22/23 07:12 Labs: Abnormal Lab Results - Last 24 Hours (Table) 12/22/23 12/22/23 12/22/23 Range/Units 07:12 07:12 09:05 MCV 100.4 H (80.0-100.0) fL MCHC 30.5 L (31.0-37.0) g/dL Lymphocytes # 0.6 L (1.0-4.8) k/uL ABG pCO2 65 H (35-45) mmHg ABG pO2 122 H (83-108) mmHg ABG HCO3 38 H (21-25) mmol/L ABG O2 Saturation 99.1 H (94-97) % Sodium 129 L (137-145) mmol/L Chloride 91 L (98-107) mmol/L Carbon Dioxide 37 H (22-30) mmol/L BUN 29 H (7-17) mg/dL Assessment and Plan Assessment: Impression:Acute on chronic hypoxemic respiratory failure secondary to an acute exacerbation of chronic obstructive pulmonary disease. D-dimer 0.38. Procalcitonin 0.07 Troponin leak, suspect oxygen supply and demand mismatch, currently on heparin drip. Echocardiogram pending Former smoker Hyperlipidemia Hypothyroidism Hypertension Recommendation: Hold on discharge planning today. Continue supportive care measures Arrange for CT of the chest with contrast to evaluate the left hilar fullness, I reviewed the chest x-ray myself I believe this is vascular fullness, could very well be related to pulmonary hypertension nonetheless a CT of the chest with contrast is appropriate. Continue bronchodilators Oral prednisone and taper Cardiology signed off and not seeing the patient anymore. Possible discharge planning in the next 24 hours Time with Patient: Less than 30
--- NOTE | 2023-12-22 19:55 | P.PN ---
Subjective Progress Note Date: 12/22/23 68-year-old female patient with a known history of chronic tobacco dependence quit in 2009, chronic obstructive pulmonary disease, oxygen dependent, hyperlipidemia, hypothyroidism, hypertension who presented to the emergency room earlier today with complaints of increasing shortness of breath stating her apartment gets either too hot or too cold for her causing her shortness of breath. She is normally on oxygen at 3 L/min per nasal cannula at home. Her oxygen dropped to 80% with minimal activity. She is seen in consultation in the ER. She is on 5 L nasal cannula with O2 saturation at 96 she is afebrile. Hemodynamically stable. White count 9.8. Hemoglobin 13.5. Platelets 294. Sodium 130. Potassium 4.0. Bicarb 36. BUN 17. Creatinine 0.6. Glucose 108. D-dimer 0.38. Chest x-ray reveals no acute pulmonary process. 12/21/2023 - patient is seen and evaluated in room at bedside; reports she is doing well, relatively asymptomatic, hardly any cough or wheezing, she does have chronic end-stage COPD and severe emphysema, patient is already on home oxygen, she does have all the bronchodilators at home; pulmonary services is on board and recommending discharging the patient home and follow-up on outpatient basis. - She was seen by cardiology for elevated troponin, felt to be none indicative of acute coronary syndrome. Hence heparin was discontinued, and cardiology signed off. Discharge planning discussed with the patient and she reports marked weakness; patient states that she is cares for herself at home; PT/OT is recommended and patient is agreeable; patient is also open for skilled rehab if such recommendation is made by PT/OT 12/22/2023 Patient is seen and evaluated in room at bedside currently on BiPAP which was p laced after having an episode of bronchospasm, and she was extremely short of breath. Patient was evaluated by pulmonary service and recommended Decadron to be given also recommended that the patient goes on BiPAP, and a chest x-ray. Chest x-ray remains essentially unchanged with some left hilar fullness; pulmonary service recommended a CT of the chest with contrast to rule out left hilar mass or adenopathy. -- Patient will remain on steroids; continue with BiPAP -Further recommendations once CT of the chest is available Objective - Vital Signs Vital signs: Vital Signs Temp 97.2 F L 12/22/23 12:47 Pulse 101 H 12/22/23 12:47 Resp 19 12/22/23 12:47 BP 124/82 12/22/23 12:47 Pulse Ox 99 12/22/23 12:47 FiO2 35 12/22/23 11:08 Intake & Output 12/21/23 12/22/23 12/22/23 18:59 06:59 18:59 Intake Total 780 600 Balance 780 600 Intake: Oral 780 600 Other: Voiding Method Bedside Commode Toilet Bedside Commode Diaper Incontinent # Voids 1 1 - Exam HEAD: Normocephalic. EYES: Normal reaction of pupils, equal size. THROAT: No erythema or exudates. NECK: No masses, no JVD. CHEST: No chest wall deformity. LUNGS: Equal air entry with no crackles, wheeze, rhonchi or dullness. Diminished. CVS: S1 and S2 normal with no audible murmur, regular rhythm. ABDOMEN: No hepatosplenomegaly, normal bowel sounds, no guarding or rigidity. CENTRAL NERVOUS SYSTEM: No focal deficits, tone is normal in all 4 extremities. EXTREMITIES: No clubbing edema or cyanosis - Labs CBC & Chem 7: 12/22/23 07:12 12/22/23 07:12 Labs: Abnormal Lab Results - Last 24 Hours (Table) 12/22/23 12/22/23 12/22/23 Range/Units 07:12 07:12 09:05 MCV 100.4 H (80.0-100.0) fL MCHC 30.5 L (31.0-37.0) g/dL Lymphocytes # 0.6 L (1.0-4.8) k/uL ABG pCO2 65 H (35-45) mmHg ABG pO2 122 H (83-108) mmHg ABG HCO3 38 H (21-25) mmol/L ABG O2 Saturation 99.1 H (94-97) % Sodium 129 L (137-145) mmol/L Chloride 91 L (98-107) mmol/L Carbon Dioxide 37 H (22-30) mmol/L BUN 29 H (7-17) mg/dL Assessment and Plan Assessment: Impression:Acute on chronic hypoxemic respiratory failure secondary to an acute exacerbation of chronic obstructive pulmonary disease. D-dimer 0.38. Procalcitonin 0.07 Troponin leak, suspect oxygen supply and demand mismatch, currently on heparin drip. Echocardiogram pending Former smoker Hyperlipidemia Hypothyroidism Hypertension Recommendation: Continue bronchodilators Continue steroids Reviewed the results of the echocardiogram, basically unremarkable. Cardiology to decide regarding heparin Will continue to follow and continue bronchodilators at the same time patient is now on prednisone 40 mg to be tapered on outpatient basis Will follow and will recommend discharge planning once cleared by cardiology
[2023-12-23 10:56] LABS: Calcium 9.2 mg/dL (8.7-10.3); Carbon Dioxide 36.9 mmol/L (21.6-31.8); Chloride 86 mmol/L (96-109); Glucose 95 mg/dL (70-110); Potassium 4.5 mmol/L (3.5-5.5); Sodium 132 mmol/L (135-145)
[2023-12-23 11:47] LABS: Basophils # (A) 0.01 X 10*3/uL (0.00-0.10); Basophils % (A) 0.1 %; Eosinophils # (A) 0.15 X 10*3/uL (0.04-0.35); Eosinophils % (A) 1.5 %; HCT 36.7 % (37.2-46.3); HGB 11.7 g/dL (12.0-15.0); Lymphocytes % (A) 10.1 %; MCH 31.5 pg (27.0-32.0); MCHC 31.9 g/dL (32.0-37.0); MCV 98.9 FL (80.0-97.0); Mean Platelet Volume 9.4 FL (9.5-12.2); Monocytes # (A) 0.96 X 10*3/uL (0.20-1.00); Monocytes % (A) 9.7 %; NRBC Per 100 WBC 0 X 10*3/uL (0.00-0.01); Neutrophils # (A) 7.72 X 10*3/uL (1.80-7.70); Neutrophils % (A) 78.4 %; Platelet Count 263 X 10*3/uL (140-440); RBC 3.71 X 10*6/uL (4.10-5.20); RDW 13.2 % (11.5-14.5); WBC 9.86 X 10*3/uL (4.50-10.00)
--- NOTE | 2023-12-23 13:13 | P.PN ---
Subjective Progress Note Date: 12/23/23 This is a 68-year-old female patient with a known history of chronic tobacco dependence quit in 2009, chronic obstructive pulmonary disease, oxygen dependent, hyperlipidemia, hypothyroidism, hypertension who presented to the emergency room earlier today with complaints of increasing shortness of breath stating her apartment gets either too hot or too cold for her causing her shortness of breath. She is normally on oxygen at 3 L/min per nasal cannula at home. Her oxygen dropped to 80% with minimal activity. She is seen in consultation in the ER. She is on 5 L nasal cannula with O2 saturation at 96 she is afebrile. Hemodynamically stable. White count 9.8. Hemoglobin 13.5. Platelets 294. Sodium 130. Potassium 4.0. Bicarb 36. BUN 17. Creatinine 0.6. Glucose 108. D-dimer 0.38. Chest x-ray reveals no acute pulmonary process. The patient is seen today December 19, 2023 in follow-up in the emergency department. She is sitting up on the stretcher. Awake and alert in no acute distress. B reathing easier today compared to yesterday. She is maintaining good O2 saturations in the 90s on 3 L/min per nasal cannula. She has been afebrile. Hemodynamically stable. He remains on a heparin drip. Continued on DuoNeb ventilations, Symbicort, prednisone taper. Empiric antibiotics in the form of azithromycin. Remains on oral diuretics. Patient was eval today on December 1905/2024, patient is doing better, breathing easier, based on examination she clearly has severe underlying COPD. She has very diminished breath sound bilaterally no rhonchi no wheezes. She is on bronchodilators, antibiotics, she is also on 6 prednisone taper. Was empirically on antibiotic which was discontinued because of normal procalcitonin level. Overall the patient is feeling better, breathing easier, Patient was reevaluated today on 12/21/2023, patient is doing well, relatively asymptomatic, hardly any cough or wheezing, she does have chronic end-stage COPD and severe emphysema, patient is already on home oxygen, she does have all the bronchodilators at home, hence I am recommending discharging the patient home and follow-up on outpatient basis. As long as she is cleared by other consultants on the case. She was seen by cardiology for elevated troponin, felt to be none indicative of acute coronary syndrome. Hence heparin was discontinued, and cardiology signed off. And I for 1 I am clearing the patient for discharge home reevaluated today on 12/22/2023 I saw this patient in the morning, and she was doing well. However 2 hours after my evaluation, I was called about this patient having an episode of bronchospasm, and she was extremely short of breath. I recommended Decadron to be given also recommended that the patient goes on BiPAP, and a chest x-ray. Chest x-ray was reviewed, basically it is about the same, but she does have some left hilar fullness, hence I recommended a CT of the chest with contrast to rule out left hilar mass or adenopathy. In the meantime the patient responded well to treatment, and we will postpone plans for discharge home. Earlier I felt the patient could be discharged home, but considering the new development, discharge needs to be delayed for now. The patient is seen today December 23, 2023 in follow-up on the regular medical floor. She is currently sitting up in bed. Awake and alert in no acute distress. Maintaining O2 saturations in the 90s on 2 L/min per nasal cannula. No IV fluids. She remains on bronchodilators. She has been refusing most of her morning medications. Refused to wear the BiPAP. Refused to have a CAT scan done. Refused steroids. White count 9.8. Hemoglobin 11.7. Platelets 263. Arterial blood gases from yesterday revealed a PaO2 of 122, pCO2 65 and a pH of 7.37 on 50% FiO2. Today sodium 132. Potassium 4.5. Bicarb 37. BUN 24. Creatinine 0.5. Glucose 95. Remains afebrile. Hemodynamically stable. Objective - Vital Signs Vital signs: Vital Signs Temp 97.7 F 12/23/23 12:15 Pulse 104 H 12/23/23 12:15 Resp 16 12/23/23 12:15 BP 144/78 12/23/23 12:15 Pulse Ox 100 12/23/23 12:15 FiO2 35 12/22/23 17:52 Intake & Output 12/22/23 12/23/23 12/23/23 18:59 06:59 18:59 Intake Total 500 Balance 500 Intake: Oral 500 Other: Voiding Method Toilet Toilet Toilet Bedside Commode Bedside Commode Bedside Commode Diaper Diaper Diaper Incontinent Incontinent Incontinent # Voids 1 1 - Exam GENERAL EXAM: Alert, 68-year-old female, sitting up in bed, on 2 L nasal cannula, in no apparent distress. HEAD: Normocephalic. EYES: Normal reaction of pupils, equal size. NOSE: Clear with pink turbinates. THROAT: No erythema or exudates. NECK: No masses, no JVD. CHEST: No chest wall deformity. LUNGS: Equal air entry with no crackles, wheeze, rhonchi or dullness. Diminished. CVS: S1 and S2 normal with no audible murmur, regular rhythm. ABDOMEN: No hepatosplenomegaly, normal bowel sounds, no guarding or rigidity. SPINE: No scoliosis or deformity SKIN: No rashes CENTRAL NERVOUS SYSTEM: No focal deficits, tone is normal in all 4 extremities. EXTREMITIES: There is no peripheral edema. No clubbing, no cyanosis. Peripheral pulses are intact. - Labs CBC & Chem 7: 12/23/23 07:09 12/23/23 07:09 Labs: Abnormal Lab Results - Last 24 Hours (Table) 12/23/23 12/23/23 Range/Units 07:09 07:09 RBC 3.71 L (4.10-5.20) X 10*6/uL Hgb 11.7 L (12.0-15.0) g/dL Hct 36.7 L (37.2-46.3) % MCV 98.9 H (80.0-97.0) FL MCHC 31.9 L (32.0-37.0) g/dL MPV 9.4 L (9.5-12.2) FL Neutrophils # 7.72 H (1.80-7.70) X 10*3/uL Sodium 132 L (135-145) mmol/L Chloride 86 L (96-109) mmol/L Carbon Dioxide 36.9 H (21.6-31.8) mmol/L Creatinine 0.5 L (0.6-1.5) mg/dL BUN/Creatinine Ratio 48.00 H (12.00-20.00) Ratio Assessment and Plan Assessment: Acute on chronic hypoxemic respiratory failure secondary to an acute exacerbation of chronic obstructive pulmonary disease. D-dimer 0.38. Procalcitonin 0.07 Troponin leak, suspect oxygen supply and demand mismatch, initially on heparin drip. Echocardiogram revealed normal LV function Former smoker Hyperlipidemia Hypothyroidism Hypertension Plan: The patient was seen and evaluated Labs and medications reviewed Continue bronchodilators, steroids Patient has been refusing testing and medications Anxious to go home Declines home care or subacute rehabilitation Continue home oxygen, bronchodilators I have personally seen and examined the patient, performed the documentation and the assessment and plan as written. Number of minutes spent on the visit: 10.
[2023-12-24] MEDS: methylPREDNISolone SOD SUCCI 125 MG/2 ML VIAL IV SCH (08:05)
[2023-12-24] MEDS: BUDESONIDE 1 MG/2 ML NEBU INHALATION SCH (08:50)
[2023-12-24] MEDS: FORMOTEROL FUMARATE 20 MCG/2 ML NEBU INHALATION SCH (08:51)
--- NOTE | 2023-12-24 12:08 | P.PN ---
Subjective Progress Note Date: 12/24/23 This is a 68-year-old female patient with a known history of chronic tobacco dependence quit in 2009, chronic obstructive pulmonary disease, oxygen dependent, hyperlipidemia, hypothyroidism, hypertension who presented to the emergency room earlier today with complaints of increasing shortness of breath stating her apartment gets either too hot or too cold for her causing her shortness of breath. She is normally on oxygen at 3 L/min per nasal cannula at home. Her oxygen dropped to 80% with minimal activity. She is seen in consultation in the ER. She is on 5 L nasal cannula with O2 saturation at 96 she is afebrile. Hemodynamically stable. White count 9.8. Hemoglobin 13.5. Platelets 294. Sodium 130. Potassium 4.0. Bicarb 36. BUN 17. Creatinine 0.6. Glucose 108. D-dimer 0.38. Chest x-ray reveals no acute pulmonary process. The patient is seen today December 19, 2023 in follow-up in the emergency department. She is sitting up on the stretcher. Awake and alert in no acute distress. B reathing easier today compared to yesterday. She is maintaining good O2 saturations in the 90s on 3 L/min per nasal cannula. She has been afebrile. Hemodynamically stable. He remains on a heparin drip. Continued on DuoNeb ventilations, Symbicort, prednisone taper. Empiric antibiotics in the form of azithromycin. Remains on oral diuretics. Patient was eval today on December 1905/2024, patient is doing better, breathing easier, based on examination she clearly has severe underlying COPD. She has very diminished breath sound bilaterally no rhonchi no wheezes. She is on bronchodilators, antibiotics, she is also on 6 prednisone taper. Was empirically on antibiotic which was discontinued because of normal procalcitonin level. Overall the patient is feeling better, breathing easier, Patient was reevaluated today on 12/21/2023, patient is doing well, relatively asymptomatic, hardly any cough or wheezing, she does have chronic end-stage COPD and severe emphysema, patient is already on home oxygen, she does have all the bronchodilators at home, hence I am recommending discharging the patient home and follow-up on outpatient basis. As long as she is cleared by other consultants on the case. She was seen by cardiology for elevated troponin, felt to be none indicative of acute coronary syndrome. Hence heparin was discontinued, and cardiology signed off. And I for 1 I am clearing the patient for discharge home reevaluated today on 12/22/2023 I saw this patient in the morning, and she was doing well. However 2 hours after my evaluation, I was called about this patient having an episode of bronchospasm, and she was extremely short of breath. I recommended Decadron to be given also recommended that the patient goes on BiPAP, and a chest x-ray. Chest x-ray was reviewed, basically it is about the same, but she does have some left hilar fullness, hence I recommended a CT of the chest with contrast to rule out left hilar mass or adenopathy. In the meantime the patient responded well to treatment, and we will postpone plans for discharge home. Earlier I felt the patient could be discharged home, but considering the new development, discharge needs to be delayed for now. The patient is seen today December 23, 2023 in follow-up on the regular medical floor. She is currently sitting up in bed. Awake and alert in no acute distress. Maintaining O2 saturations in the 90s on 2 L/min per nasal cannula. No IV fluids. She remains on bronchodilators. She has been refusing most of her morning medications. Refused to wear the BiPAP. Refused to have a CAT scan done. Refused steroids. White count 9.8. Hemoglobin 11.7. Platelets 263. Arterial blood gases from yesterday revealed a PaO2 of 122, pCO2 65 and a pH of 7.37 on 50% FiO2. Today sodium 132. Potassium 4.5. Bicarb 37. BUN 24. Creatinine 0.5. Glucose 95. Remains afebrile. Hemodynamically stable. The patient is seen today December 24, 2023 in follow-up on the regular medical floor. She is awake and alert. She is having some mild respiratory distress apparently using some accessory muscles. Yesterday she had refused BiPAP support and was refusing her medications including steroids. Today she is bronchospastic and wheezing. She is on 2 L/min per nasal cannula. We did discuss the importance of taking her medication and utilizing BiPAP when she is in acute distress. She is agreeable now. She is placed on BiPAP 12/5 and 40% FiO2. She is been transitioned from Symbicort to Pulmicort and Perforomist inhalations, continued on DuoNeb inhalations, transitioned from prednisone back to IV Solu-Medrol. Objective - Vital Signs Vital signs: Vital Signs Temp 97.6 F 12/24/23 07:26 Pulse 108 H 12/24/23 11:33 Resp 20 12/24/23 07:26 BP 137/83 12/24/23 07:26 Pulse Ox 95 12/24/23 07:36 FiO2 40 12/24/23 11:17 Intake & Output 12/23/23 12/24/23 12/24/23 18:59 06:59 18:59 Intake Total 540 Balance 540 Intake: Oral 540 Other: Voiding Method Toilet Toilet Toilet Bedside Commode Bedside Commode Bedside Commode Diaper Diaper Diaper Incontinent Incontinent Incontinent # Voids 3 2 - Exam GENERAL EXAM: Alert, 68-year-old female, sitting up in bed, on 2 L nasal cannula, in mild respiratory distress. HEAD: Normocephalic. EYES: Normal reaction of pupils, equal size. NOSE: Clear with pink turbinates. THROAT: No erythema or exudates. NECK: No masses, no JVD. CHEST: No chest wall deformity. LUNGS: Equal air entry with no crackles, wheeze, rhonchi or dullness. Diminished. CVS: S1 and S2 normal with no audible murmur, regular rhythm. ABDOMEN: No hepatosplenomegaly, normal bowel sounds, no guarding or rigidity. SPINE: No scoliosis or deformity SKIN: No rashes CENTRAL NERVOUS SYSTEM: No focal deficits, tone is normal in all 4 extremities. EXTREMITIES: There is no peripheral edema. No clubbing, no cyanosis. Peripheral pulses are intact. - Labs CBC & Chem 7: 12/23/23 07:09 12/23/23 07:09 Assessment and Plan Assessment: Acute on chronic hypoxemic respiratory failure secondary to an acute exacerbation of chronic obstructive pulmonary disease. D-dimer 0.38. Procalcitonin 0.07 Troponin leak, suspect oxygen supply and demand mismatch, initially on heparin drip. Echocardiogram revealed normal LV function Former smoker Hyperlipidemia Hypothyroidism Hypertension Plan: The patient was seen and evaluated Medications reviewed Patient had to be convinced to take her medications Now willing to wear BiPAP Continue bronchodilators, solu Medrol Titrate the FiO2 as tolerated PT/OT recommending rehab Patient still declining to go to rehab Case management following I have personally seen and examined the patient, performed the documentation and the assessment and plan as written. Number of minutes spent on the visit: 10.
[2023-12-24 17:10] LABS: Glucose,Whole Blood 171 mg/dL (70-110)
[2023-12-24 20:45] LABS: Glucose,Whole Blood 185 mg/dL (70-110)
[2023-12-25 06:09] LABS: Glucose,Whole Blood 132 mg/dL (70-110)
[2023-12-25 11:50] LABS: Glucose,Whole Blood 126 mg/dL (70-110)
--- NOTE | 2023-12-25 13:20 | P.PN ---
Subjective Progress Note Date: 12/25/23 Principal diagnosis: COPD exacerbation This is a 68-year-old female patient with a known history of chronic tobacco dependence quit in 2009, chronic obstructive pulmonary disease, oxygen dependent, hyperlipidemia, hypothyroidism, hypertension who presented to the emergency room earlier today with complaints of increasing shortness of breath stating her apartment gets either too hot or too cold for her causing her shortness of breath. She is normally on oxygen at 3 L/min per nasal cannula at home. Her oxygen dropped to 80% with minimal activity. She is seen in consultation in the ER. She is on 5 L nasal cannula with O2 saturation at 96 she is afebrile. Hemodynamically stable. White count 9.8. Hemoglobin 13.5. Platelets 294. Sodium 130. Potassium 4.0. Bicarb 36. BUN 17. Creatinine 0.6. Glucose 108. D-dimer 0.38. Chest x-ray reveals no acute pulmonary pr ocess. The patient is seen today December 19, 2023 in follow-up in the emergency department. She is sitting up on the stretcher. Awake and alert in no acute distress. Breathing easier today compared to yesterday. She is maintaining good O2 saturations in the 90s on 3 L/min per nasal cannula. She has been afebrile. Hemodynamically stable. He remains on a heparin drip. Continued on DuoNeb ventilations, Symbicort, prednisone taper. Empiric antibiotics in the form of azithromycin. Remains on oral diuretics. Patient was eval today on December 1905/2024, patient is doing better, breathing easier, based on examination she clearly has severe underlying COPD. She has very diminished breath sound bilaterally no rhonchi no wheezes. She is on bronchodilators, antibiotics, she is also on 6 prednisone taper. Was empirically on antibiotic which was discontinued because of normal procalcitonin level. Overall the patient is feeling better, breathing easier, Patient was reevaluated today on 12/21/2023, patient is doing well, relatively asymptomatic, hardly any cough or wheezing, she does have chronic end-stage COPD and severe emphysema, patient is already on home oxygen, she does have all the bronchodilators at home, hence I am recommending discharging the patient home and follow-up on outpatient basis. As long as she is cleared by other consultants on the case. She was seen by cardiology for elevated troponin, felt to be none indicative of acute coronary syndrome. Hence heparin was disc ontinued, and cardiology signed off. And I for 1 I am clearing the patient for discharge home reevaluated today on 12/22/2023 I saw this patient in the morning, and she was doing well. However 2 hours after my evaluation, I was called about this patient having an episode of bronchospasm, and she was extremely short of breath. I recommended Decadron to be given also recommended that the patient goes on BiPAP, and a chest x-ray. Chest x-ray was reviewed, basically it is about the same, but she does have some left hilar fullness, hence I recommended a CT of the chest with contrast to rule out left hilar mass or adenopathy. In the meantime the patient responded well to treatment, and we will postpone plans for discharge home. Earlier I felt the patient could be discharged home, but considering the new development, discharge needs to be delayed for now. The patient is seen today December 23, 2023 in follow-up on the regular medical floor. She is currently sitting up in bed. Awake and alert in no acute distress. Maintaining O2 saturations in the 90s on 2 L/min per nasal cannula. No IV fluids. She remains on bronchodilators. She has been refusing most of her morning medications. Refused to wear the BiPAP. Refused to have a CAT scan done. Refused steroids. White count 9.8. Hemoglobin 11.7. Platelets 263. Arterial blood gases from yesterday revealed a PaO2 of 122, pCO2 65 and a pH of 7.37 on 50% FiO2. Today sodium 132. Potassium 4.5. Bicarb 37. BUN 24. Creatinine 0.5. Glucose 95. Remains afebrile. Hemodynamically stable. The patient is seen today December 24, 2023 in follow-up on the regular medical floor. She is awake and alert. She is having some mild respiratory distress apparently using some accessory muscles. Yesterday she had refused BiPAP support and was refusing her medications including steroids. Today she is bronchospastic and wheezing. She is on 2 L/min per nasal cannula. We did discuss the importance of taking her medication and utilizing BiPAP when she is in acute distress. She is agreeable now. She is placed on BiPAP 12/5 and 40% FiO2. She is been transitioned from Symbicort to Pulmicort and Perforomist inhalations, continued on DuoNeb inhalations, transitioned from prednisone back to IV Solu-Medrol. Progress note dated December 25, 2023. The patient was moved from the [facility] to room 373. The patient agreed to follow our instructions, so that we can improve her COPD. Initially, she was rejecting a lot of medications including breathing treatments, corticosteroids. We placed her on BiPAP, with settings of 12/5 and 40%. The patient is not receiving any IV fluids. The patient agreed to IV Solu-Medrol, and Pulmicort and formoterol, at usual doses. Today, although she still on BiPAP, she is feeling much better. Labs today include a glucose of 126. Objective - Vital Signs Vital signs: Vital Signs Temp 99 F 12/25/23 09:10 Pulse 92 12/25/23 12:58 Resp 20 12/25/23 12:58 BP 118/81 12/25/23 09:10 Pulse Ox 100 12/25/23 09:10 FiO2 40 12/25/23 08:53 Intake & Output 12/24/23 12/25/23 12/25/23 18:59 06:59 18:59 Intake Total 354 118 Balance 354 118 Weight 49.895 kg Intake: Oral 354 118 Other: Voiding Method Toilet Toilet Toilet Bedside Commode Bedside Commode Bedside Commode Diaper Diaper Diaper Incontinent Incontinent Incontinent # Voids 1 1 - Exam No acute distress, oriented 3. BiPAP mask in place. Much less respiratory distress. HEENT examination is grossly unremarkable. Neck supple. Full range of motion. No adenopathy thyromegaly or neck vein distention. Cardiovascular examination reveals regular rhythm rate. S1-S2 normal. No S3 or S4. No discernible murmur noted. Heart rate 92 bpm. Heart sounds are distant. Lungs reveal scattered bilateral expiratory rhonchi and wheezes. No crackles. Breath sounds equal. Breath sounds are diminished throughout. Saturations are 100%. Abdomen soft bowel sounds are heard. No masses or tenderness. Extremities are intact. No cyanosis clubbing or edema. Skin is without rash or lesion. Neurologic examination is brief but nonfocal. - Labs CBC & Chem 7: 12/23/23 07:09 12/23/23 07:09 Labs: Abnormal Lab Results - Last 24 Hours (Table) 12/24/23 12/24/23 12/25/23 Range/Units 17:08 20:30 06:08 POC Glucose (mg/dL) 171 H 185 H 132 H (70-110) mg/dL 12/25/23 Range/Units 11:48 POC Glucose (mg/dL) 126 H (70-110) mg/dL Assessment and Plan Assessment: Acute on chronic hypoxemic respiratory failure secondary to an acute exacerbation of chronic obstructive pulmonary disease. Troponin leak, suspect oxygen supply and demand mismatch. Former smoker. Anorexia/cachexia syndrome of chronic illness. Hyperlipidemia. Hypothyroidism. Hypertension. Plan: Plan dated December 25, 2023. The patient is seen in room 373. She continues on BiPAP, with settings of 12/5 and 40%. She is not receiving any IV fluids. She agreed to IV Solu-Medrol. She also agreed to breathing treatments with budesonide, and formoterol, at usual doses. Labs, x-rays, medications are reviewed. We will continue to support the patient, and see if we can improve her overall lung function, and her breathing issues. We will continue to see the patient, on a regular basis. Labs, x-rays, medications are reviewed. Prognosis is guarded. Time with Patient: Less than 30
[2023-12-25 16:46] LABS: Glucose,Whole Blood 136 mg/dL (70-110)
[2023-12-25 20:28] LABS: Glucose,Whole Blood 237 mg/dL (70-110)
[2023-12-26 06:14] LABS: Glucose,Whole Blood 138 mg/dL (70-110)
[2023-12-26 11:41] LABS: Glucose,Whole Blood 163 mg/dL (70-110)
--- NOTE | 2023-12-26 11:51 | P.PN ---
Subjective Progress Note Date: 12/26/23 This is a 68-year-old female patient with a known history of chronic tobacco dependence quit in 2009, chronic obstructive pulmonary disease, oxygen dependent, hyperlipidemia, hypothyroidism, hypertension who presented to the emergency room earlier today with complaints of increasing shortness of breath stating her apartment gets either too hot or too cold for her causing her shortness of breath. She is normally on oxygen at 3 L/min per nasal cannula at home. Her oxygen dropped to 80% with minimal activity. She is seen in consultation in the ER. She is on 5 L nasal cannula with O2 saturation at 96 she is afebrile. Hemodynamically stable. White count 9.8. Hemoglobin 13.5. Platelets 294. Sodium 130. Potassium 4.0. Bicarb 36. BUN 17. Creatinine 0.6. Glucose 108. D-dimer 0.38. Chest x-ray reveals no acute pulmonary process. The patient is seen today December 19, 2023 in follow-up in the emergency department. She is sitting up on the stretcher. Awake and alert in no acute distress. B reathing easier today compared to yesterday. She is maintaining good O2 saturations in the 90s on 3 L/min per nasal cannula. She has been afebrile. Hemodynamically stable. He remains on a heparin drip. Continued on DuoNeb ventilations, Symbicort, prednisone taper. Empiric antibiotics in the form of azithromycin. Remains on oral diuretics. Patient was eval today on December 1905/2024, patient is doing better, breathing easier, based on examination she clearly has severe underlying COPD. She has very diminished breath sound bilaterally no rhonchi no wheezes. She is on bronchodilators, antibiotics, she is also on 6 prednisone taper. Was empirically on antibiotic which was discontinued because of normal procalcitonin level. Overall the patient is feeling better, breathing easier, Patient was reevaluated today on 12/21/2023, patient is doing well, relatively asymptomatic, hardly any cough or wheezing, she does have chronic end-stage COPD and severe emphysema, patient is already on home oxygen, she does have all the bronchodilators at home, hence I am recommending discharging the patient home and follow-up on outpatient basis. As long as she is cleared by other consultants on the case. She was seen by cardiology for elevated troponin, felt to be none indicative of acute coronary syndrome. Hence heparin was discontinued, and cardiology signed off. And I for 1 I am clearing the patient for discharge home reevaluated today on 12/22/2023 I saw this patient in the morning, and she was doing well. However 2 hours after my evaluation, I was called about this patient having an episode of bronchospasm, and she was extremely short of breath. I recommended Decadron to be given also recommended that the patient goes on BiPAP, and a chest x-ray. Chest x-ray was reviewed, basically it is about the same, but she does have some left hilar fullness, hence I recommended a CT of the chest with contrast to rule out left hilar mass or adenopathy. In the meantime the patient responded well to treatment, and we will postpone plans for discharge home. Earlier I felt the patient could be discharged home, but considering the new development, discharge needs to be delayed for now. The patient is seen today December 23, 2023 in follow-up on the regular medical floor. She is currently sitting up in bed. Awake and alert in no acute distress. Maintaining O2 saturations in the 90s on 2 L/min per nasal cannula. No IV fluids. She remains on bronchodilators. She has been refusing most of her morning medications. Refused to wear the BiPAP. Refused to have a CAT scan done. Refused steroids. White count 9.8. Hemoglobin 11.7. Platelets 263. Arterial blood gases from yesterday revealed a PaO2 of 122, pCO2 65 and a pH of 7.37 on 50% FiO2. Today sodium 132. Potassium 4.5. Bicarb 37. BUN 24. Creatinine 0.5. Glucose 95. Remains afebrile. Hemodynamically stable. The patient is seen today December 24, 2023 in follow-up on the regular medical floor. She is awake and alert. She is having some mild respiratory distress apparently using some accessory muscles. Yesterday she had refused BiPAP support and was refusing her medications including steroids. Today she is bronchospastic and wheezing. She is on 2 L/min per nasal cannula. We did discuss the importance of taking her medication and utilizing BiPAP when she is in acute distress. She is agreeable now. She is placed on BiPAP 12/5 and 40% FiO2. She is been transitioned from Symbicort to Pulmicort and Perforomist inhalations, continued on DuoNeb inhalations, transitioned from prednisone back to IV Solu-Medrol. The patient is seen today December 26, 2023 in follow-up on the regular medical floor. She is currently sitting up in bed. Awake and alert. Remains in some mild respiratory distress. She did not wear the BiPAP last evening. She is currently on 3 L nasal cannula. She is accepting her breathing treatments as scheduled. She remains on DuoNeb inhalations, Pulmicort and Perforomist inhala tions, IV Solu-Medrol. Remains on oral diuretics. Blood glucose 163. Objective - Vital Signs Vital signs: Vital Signs Temp 97.8 F 12/26/23 08:00 Pulse 92 12/26/23 08:57 Resp 18 12/26/23 08:00 BP 102/59 12/26/23 08:00 Pulse Ox 96 12/26/23 08:00 FiO2 40 12/25/23 08:53 Intake & Output 12/25/23 12/26/23 12/26/23 18:59 06:59 18:59 Intake Total 1496 480 478 Balance 1496 480 478 Intake: Oral 1496 480 478 Other: Voiding Method Toilet Toilet Toilet Bedside Commode Bedside Commode Bedside Commode Diaper Diaper Diaper Incontinent Incontinent Incontinent # Voids 2 - Exam GENERAL EXAM: Alert, 68-year-old female, sitting up in bed, on 3 L nasal cannula, in mild respiratory distress. HEAD: Normocephalic. EYES: Normal reaction of pupils, equal size. NOSE: Clear with pink turbinates. THROAT: No erythema or exudates. NECK: No masses, no JVD. CHEST: No chest wall deformity. LUNGS: Equal air entry with no crackles, wheeze, rhonchi or dullness. Diminished. CVS: S1 and S2 normal with no audible murmur, regular rhythm. ABDOMEN: No hepatosplenomegaly, normal bowel sounds, no guarding or rigidity. SPINE: No scoliosis or deformity SKIN: No rashes CENTRAL NERVOUS SYSTEM: No focal deficits, tone is normal in all 4 extremities. EXTREMITIES: There is no peripheral edema. No clubbing, no cyanosis. Peripheral pulses are intact. - Labs CBC & Chem 7: 12/23/23 07:09 12/23/23 07:09 Labs: Abnormal Lab Results - Last 24 Hours (Table) 12/25/23 12/25/23 12/25/23 Range/Units 11:48 16:44 20:08 POC Glucose (mg/dL) 126 H 136 H 237 H (70-110) mg/dL 12/26/23 12/26/23 Range/Units 06:13 11:38 POC Glucose (mg/dL) 138 H 163 H (70-110) mg/dL Assessment and Plan Assessment: Acute on chronic hypoxemic respiratory failure secondary to an acute exacerbation of chronic obstructive pulmonary disease. D-dimer 0.38. Procalcitonin 0.07 Troponin leak, suspect oxygen supply and demand mismatch, initially on heparin drip. Echocardiogram revealed normal LV function Former smoker Hyperlipidemia Hypothyroidism Hypertension Plan: The patient was seen and evaluated Medications reviewed Continue bronchodilators, solu Medrol Titrate the FiO2 as tolerated Continue BiPAP during the night and throughout the day while napping We will continue to follow I have personally seen and examined the patient, performed the documentation and the assessment and plan as written. Number of minutes spent on the visit: 10.
[2023-12-26 16:21] LABS: Glucose,Whole Blood 129 mg/dL (70-110)
[2023-12-26 20:00] LABS: Glucose,Whole Blood 217 mg/dL (70-110)
[2023-12-26] MEDS: risperiDONE 1 MG TAB PO SCH (20:18)
--- NOTE | 2023-12-26 20:31 | PN ---
PROGRESS NOTE DATE OF SERVICE: 12/26/2023 CHIEF COMPLAINT: Acute respiratory failure and COPD. HISTORY OF PRESENT ILLNESS: This lady is remaining quite weak and short of breath. It is difficult to see how she can go home and live independently again. REVIEW OF SYSTEMS: She denies any chest pain, but she is still very short of breath with minimal exertion. PHYSICAL EXAMINATION: GENERAL: She looks poorly nourished and breath sounds are extremely poor. CARDIAC: Normal. ABDOMEN: Soft. EXTREMITIES: There is very little muscle bulk in the extremities. IMPRESSION: 1. Exacerbation of chronic obstructive pulmonary disease. 2. Respiratory failure. PLAN: 1. Physical and occupational therapies. 2. Discharge planning. MMODL / IJN: [id number] /
--- NOTE | 2023-12-26 21:00 | PN ---
PROGRESS NOTE DATE OF SERVICE: 12/23/2023 CHIEF COMPLAINT: Respiratory failure. HISTORY OF PRESENT ILLNESS: This lady is still extremely dyspneic and is on a BiPAP. She is being somewhat uncooperative. protein-calorie malnutrition. IMPRESSION: 1. Exacerbation of chronic obstructive pulmonary disease. 2. Respiratory failure. PLAN: Continue with pulmonary program. She will probably require rehab after hospitalization. MMODL / IJN: [id number] /
[2023-12-26] MEDS ORDERED: SYMBICORT 160-4.5 MCG INHALER INHALATION SCH (22:00)
[2023-12-27 06:12] LABS: Glucose,Whole Blood 133 mg/dL (70-110)
[2023-12-27] MEDS: CALCIUM CARBONATE 500 MG CHEWABLE PO SCH (09:42)
[2023-12-27] MEDS ORDERED: NON FORMULARY DRUG (Fluticasone/Umeclidin/Vilanter [Trelegy Ellipta 100-62.5-25] 1 EACH Bl INHALATION SCH (10:30)
[2023-12-27 11:41] LABS: Glucose,Whole Blood 121 mg/dL (70-110)
--- NOTE | 2023-12-27 11:44 | P.PN ---
Subjective Progress Note Date: 12/27/23 Principal diagnosis: COPD exacerbation This is a 68-year-old female patient with a known history of chronic tobacco dependence quit in 2009, chronic obstructive pulmonary disease, oxygen dependent, hyperlipidemia, hypothyroidism, hypertension who presented to the emergency room earlier today with complaints of increasing shortness of breath stating her apartment gets either too hot or too cold for her causing her shortness of breath. She is normally on oxygen at 3 L/min per nasal cannula at home. Her oxygen dropped to 80% with minimal activity. She is seen in consultation in the ER. She is on 5 L nasal cannula with O2 saturation at 96 she is afebrile. Hemodynamically stable. White count 9.8. Hemoglobin 13.5. Platelets 294. Sodium 130. Potassium 4.0. Bicarb 36. BUN 17. Creatinine 0.6. Glucose 108. D-dimer 0.38. Chest x-ray reveals no acute pulmonary pr ocess. The patient is seen today December 19, 2023 in follow-up in the emergency department. She is sitting up on the stretcher. Awake and alert in no acute distress. Breathing easier today compared to yesterday. She is maintaining good O2 saturations in the 90s on 3 L/min per nasal cannula. She has been afebrile. Hemodynamically stable. He remains on a heparin drip. Continued on DuoNeb ventilations, Symbicort, prednisone taper. Empiric antibiotics in the form of azithromycin. Remains on oral diuretics. Patient was eval today on December 1905/2024, patient is doing better, breathing easier, based on examination she clearly has severe underlying COPD. She has very diminished breath sound bilaterally no rhonchi no wheezes. She is on bronchodilators, antibiotics, she is also on 6 prednisone taper. Was empirically on antibiotic which was discontinued because of normal procalcitonin level. Overall the patient is feeling better, breathing easier, Patient was reevaluated today on 12/21/2023, patient is doing well, relatively asymptomatic, hardly any cough or wheezing, she does have chronic end-stage COPD and severe emphysema, patient is already on home oxygen, she does have all the bronchodilators at home, hence I am recommending discharging the patient home and follow-up on outpatient basis. As long as she is cleared by other consultants on the case. She was seen by cardiology for elevated troponin, felt to be none indicative of acute coronary syndrome. Hence heparin was disc ontinued, and cardiology signed off. And I for 1 I am clearing the patient for discharge home reevaluated today on 12/22/2023 I saw this patient in the morning, and she was doing well. However 2 hours after my evaluation, I was called about this patient having an episode of bronchospasm, and she was extremely short of breath. I recommended Decadron to be given also recommended that the patient goes on BiPAP, and a chest x-ray. Chest x-ray was reviewed, basically it is about the same, but she does have some left hilar fullness, hence I recommended a CT of the chest with contrast to rule out left hilar mass or adenopathy. In the meantime the patient responded well to treatment, and we will postpone plans for discharge home. Earlier I felt the patient could be discharged home, but considering the new development, discharge needs to be delayed for now. The patient is seen today December 23, 2023 in follow-up on the regular medical floor. She is currently sitting up in bed. Awake and alert in no acute distress. Maintaining O2 saturations in the 90s on 2 L/min per nasal cannula. No IV fluids. She remains on bronchodilators. She has been refusing most of her morning medications. Refused to wear the BiPAP. Refused to have a CAT scan done. Refused steroids. White count 9.8. Hemoglobin 11.7. Platelets 263. Arterial blood gases from yesterday revealed a PaO2 of 122, pCO2 65 and a pH of 7.37 on 50% FiO2. Today sodium 132. Potassium 4.5. Bicarb 37. BUN 24. Creatinine 0.5. Glucose 95. Remains afebrile. Hemodynamically stable. The patient is seen today December 24, 2023 in follow-up on the regular medical floor. She is awake and alert. She is having some mild respiratory distress apparently using some accessory muscles. Yesterday she had refused BiPAP support and was refusing her medications including steroids. Today she is bronchospastic and wheezing. She is on 2 L/min per nasal cannula. We did discuss the importance of taking her medication and utilizing BiPAP when she is in acute distress. She is agreeable now. She is placed on BiPAP 12/5 and 40% FiO2. She is been transitioned from Symbicort to Pulmicort and Perforomist inhalations, continued on DuoNeb inhalations, transitioned from prednisone back to IV Solu-Medrol. Progress note dated December 25, 2023. The patient was moved from the [facility] to room 373. The patient agreed to follow our instructions, so that we can improve her COPD. Initially, she was rejecting a lot of medications including breathing treatments, corticosteroids. We placed her on BiPAP, with settings of 12/5 and 40%. The patient is not receiving any IV fluids. The patient agreed to IV Solu-Medrol, and Pulmicort and formoterol, at usual doses. Today, although she still on BiPAP, she is feeling much better. Labs today include a glucose of 126. Progress note dated December 26, 2023. The patient was seen today in room 373. She is currently on 3 L by nasal cannula. No IV fluids. She apparently did use the BiPAP last night, with settings of 12/5, and 40%. She was on BiPAP from 10 PM to 6 AM. No new labs today other than a glucose of 121. Objective - Vital Signs Vital signs: Vital Signs Temp 97.9 F 12/27/23 09:36 Pulse 113 H 12/27/23 11:09 Resp 18 12/27/23 11:09 BP 176/96 12/27/23 11:09 Pulse Ox 92 L 12/27/23 11:09 FiO2 40 12/27/23 03:22 Intake & Output 12/26/23 12/27/23 12/27/23 18:59 06:59 18:59 Intake Total 1438 Balance 1438 Intake: Oral 1438 Other: Voiding Method Toilet Toilet Toilet Bedside Commode Bedside Commode Bedside Commode Diaper Diaper Diaper Incontinent Incontinent Incontinent # Voids 3 1 - Exam No acute distress, oriented 3. Currently, on 3 L nasal cannula. HEENT examination is grossly unremarkable. Neck supple. Full range of motion. No adenopathy thyromegaly or neck vein di stention. Cardiovascular examination reveals regular rhythm rate. S1-S2 normal. No S3 or S4. No discernible murmur noted. Heart rate 1 bpm. Heart sounds are distant. Lungs reveal scattered bilateral expiratory rhonchi and wheezes. No crackles. Breath sounds equal. Breath sounds are diminished throughout. Saturations are 92% on 3 L. Abdomen soft bowel sounds are heard. No masses or tenderness. Extremities are intact. No cyanosis clubbing or edema. Skin is without rash or lesion. Neurologic examination is brief but nonfocal. - Labs CBC & Chem 7: 12/23/23 07:09 12/23/23 07:09 Labs: Abnormal Lab Results - Last 24 Hours (Table) 12/26/23 12/26/23 12/26/23 Range/Units 11:38 16:20 19:58 POC Glucose (mg/dL) 163 H 129 H 217 H (70-110) mg/dL 12/27/23 12/27/23 Range/Units 06:11 11:39 POC Glucose (mg/dL) 133 H 121 H (70-110) mg/dL Assessment and Plan Assessment: Acute on chronic hypoxemic respiratory failure secondary to an acute exacerbation of chronic obstructive pulmonary disease. Troponin leak, suspect oxygen supply and demand mismatch. Former smoker. Anorexia/cachexia syndrome of chronic illness. Hyperlipidemia. Hypothyroidism. Hypertension. Plan: Plan dated December 25, 2023. The patient is seen in room 373. She continues on BiPAP, with settings of 12/5 and 40%. She is not receiving any IV fluids. She agreed to IV Solu-Medrol. She also agreed to breathing treatments with budesonide, and formoterol, at usual doses. Labs, x-rays, medications are reviewed. We will continue to support the patient, and see if we can improve her overall lung function, and her breathing issues. We will continue to see the patient, on a regular basis. Labs, x-rays, medications are reviewed. Prognosis is guarded. Plan dated December 26, 2023. The patient is seen today in room 373. She is on 3 L of oxygen. The patient did use the BiPAP device, from 10 PM to 6 AM this morning. Settings include 12/5 and 40%. The patient is not receiving any IV fluids. Labs, x-rays, and medications are reviewed. The patient appears to be doing much better. In addition, she is much more compliant with medications. We will continue to follow the patient, make recommendations. Prognosis is guarded. Time with Patient: Less than 30
[2023-12-27 17:03] LABS: Glucose,Whole Blood 143 mg/dL (70-110)
[2023-12-27 19:54] LABS: Glucose,Whole Blood 143 mg/dL (70-110)
--- NOTE | 2023-12-28 00:18 | PN ---
PROGRESS NOTE DATE OF SERVICE: 12/27/2023 CHIEF COMPLAINT: Respiratory failure. HISTORY OF PRESENT ILLNESS: This lady is about the same. She is still very dependent on oxygen and is barely able to move at all. She can barely get to the bathroom and back with oxygen. She is thinking that she will not have to go to rehab, but it is likely that she will. PHYSICAL EXAMINATION: LUNGS: Breath sounds are almost inaudible. CARDIAC: Exam is normal. GENERAL: She remains dehydrated and asthenic. IMPRESSION: 1. Respiratory failure. 2. Advanced COPD. 3. Generalized weakness. 4. Dehydration. 5. Malnutrition. PLAN: Continue with current program and await to see if she is able to be discharged home. MMODL / IJN: [id number] /
[2023-12-28 06:25] LABS: Glucose,Whole Blood 88 mg/dL (70-110)
--- NOTE | 2023-12-28 11:48 | P.PN ---
Subjective Progress Note Date: 12/28/23 Principal diagnosis: COPD exacerbation This is a 68-year-old female patient with a known history of chronic tobacco dependence quit in 2009, chronic obstructive pulmonary disease, oxygen dependent, hyperlipidemia, hypothyroidism, hypertension who presented to the emergency room earlier today with complaints of increasing shortness of breath stating her apartment gets either too hot or too cold for her causing her shortness of breath. She is normally on oxygen at 3 L/min per nasal cannula at home. Her oxygen dropped to 80% with minimal activity. She is seen in consultation in the ER. She is on 5 L nasal cannula with O2 saturation at 96 she is afebrile. Hemodynamically stable. White count 9.8. Hemoglobin 13.5. Platelets 294. Sodium 130. Potassium 4.0. Bicarb 36. BUN 17. Creatinine 0.6. Glucose 108. D-dimer 0.38. Chest x-ray reveals no acute pulmonary pr ocess. The patient is seen today December 19, 2023 in follow-up in the emergency department. She is sitting up on the stretcher. Awake and alert in no acute distress. Breathing easier today compared to yesterday. She is maintaining good O2 saturations in the 90s on 3 L/min per nasal cannula. She has been afebrile. Hemodynamically stable. He remains on a heparin drip. Continued on DuoNeb ventilations, Symbicort, prednisone taper. Empiric antibiotics in the form of azithromycin. Remains on oral diuretics. Patient was eval today on December 1905/2024, patient is doing better, breathing easier, based on examination she clearly has severe underlying COPD. She has very diminished breath sound bilaterally no rhonchi no wheezes. She is on bronchodilators, antibiotics, she is also on 6 prednisone taper. Was empirically on antibiotic which was discontinued because of normal procalcitonin level. Overall the patient is feeling better, breathing easier, Patient was reevaluated today on 12/21/2023, patient is doing well, relatively asymptomatic, hardly any cough or wheezing, she does have chronic end-stage COPD and severe emphysema, patient is already on home oxygen, she does have all the bronchodilators at home, hence I am recommending discharging the patient home and follow-up on outpatient basis. As long as she is cleared by other consultants on the case. She was seen by cardiology for elevated troponin, felt to be none indicative of acute coronary syndrome. Hence heparin was disc ontinued, and cardiology signed off. And I for 1 I am clearing the patient for discharge home reevaluated today on 12/22/2023 I saw this patient in the morning, and she was doing well. However 2 hours after my evaluation, I was called about this patient having an episode of bronchospasm, and she was extremely short of breath. I recommended Decadron to be given also recommended that the patient goes on BiPAP, and a chest x-ray. Chest x-ray was reviewed, basically it is about the same, but she does have some left hilar fullness, hence I recommended a CT of the chest with contrast to rule out left hilar mass or adenopathy. In the meantime the patient responded well to treatment, and we will postpone plans for discharge home. Earlier I felt the patient could be discharged home, but considering the new development, discharge needs to be delayed for now. The patient is seen today December 23, 2023 in follow-up on the regular medical floor. She is currently sitting up in bed. Awake and alert in no acute distress. Maintaining O2 saturations in the 90s on 2 L/min per nasal cannula. No IV fluids. She remains on bronchodilators. She has been refusing most of her morning medications. Refused to wear the BiPAP. Refused to have a CAT scan done. Refused steroids. White count 9.8. Hemoglobin 11.7. Platelets 263. Arterial blood gases from yesterday revealed a PaO2 of 122, pCO2 65 and a pH of 7.37 on 50% FiO2. Today sodium 132. Potassium 4.5. Bicarb 37. BUN 24. Creatinine 0.5. Glucose 95. Remains afebrile. Hemodynamically stable. The patient is seen today December 24, 2023 in follow-up on the regular medical floor. She is awake and alert. She is having some mild respiratory distress apparently using some accessory muscles. Yesterday she had refused BiPAP support and was refusing her medications including steroids. Today she is bronchospastic and wheezing. She is on 2 L/min per nasal cannula. We did discuss the importance of taking her medication and utilizing BiPAP when she is in acute distress. She is agreeable now. She is placed on BiPAP 12/5 and 40% FiO2. She is been transitioned from Symbicort to Pulmicort and Perforomist inhalations, continued on DuoNeb inhalations, transitioned from prednisone back to IV Solu-Medrol. Progress note dated December 25, 2023. The patient was moved from the [facility] to room 373. The patient agreed to follow our instructions, so that we can improve her COPD. Initially, she was rejecting a lot of medications including breathing treatments, corticosteroids. We placed her on BiPAP, with settings of 12/5 and 40%. The patient is not receiving any IV fluids. The patient agreed to IV Solu-Medrol, and Pulmicort and formoterol, at usual doses. Today, although she still on BiPAP, she is feeling much better. Labs today include a glucose of 126. Progress note dated December 26, 2023. The patient was seen today in room 373. She is currently on 3 L by nasal cannula. No IV fluids. She apparently did use the BiPAP last night, with settings of 12/5, and 40%. She was on BiPAP from 10 PM to 6 AM. No new labs today other than a glucose of 121. Progress note dated December 28, 2023. The patient is seen today in room 373. She continues on oxygen at 3 L. She is not receiving any IV fluids. She did not use the BiPAP device last night. Each day, she feels a bit better. Labs today only include a glucose of 88. No recent chest x-ray to report. The patient continues on updrafts with albuterol sulfate ipratropium bromide, updrafts with Pulmicort, and formoterol, and Solu- Medrol. Objective - Vital Signs Vital signs: Vital Signs Temp 97.5 F L 12/28/23 09:20 Pulse 93 12/28/23 09:20 Resp 22 12/28/23 09:20 BP 163/80 12/28/23 09:20 Pulse Ox 93 L 12/28/23 09:20 FiO2 40 12/27/23 03:22 Intake & Output 12/27/23 12/28/23 12/28/23 18:59 06:59 18:59 Intake Total 240 240 Output Total 0 Balance 240 240 Intake: Oral 240 240 Output: Gastric Drainage 0 Urine 0 Stool 0 Urine/Stool Mix 0 Emesis 0 Other 0 Other: Voiding Method Toilet Toilet Toilet Bedside Commode Bedside Commode Bedside Commode Diaper Diaper Diaper Incontinent Incontinent Incontinent # Voids 1 0 # Bowel Movements 1 0 - Exam No acute distress, oriented 3. Currently, on 3 L nasal cannula. HEENT examination is grossly unremarkable. Neck supple. Full range of motion. No adenopathy thyromegaly or neck vein distention. Cardiovascular examination reveals regular rhythm rate. S1-S2 normal. No S3 or S4. No discernible murmur noted. Heart rate 90 bpm. Heart sounds are distant. Lungs reveal scattered bilateral expiratory rhonchi and wheezes. No crackles. Breath sounds equal. Breath sounds are diminished throughout. Saturations are 93 % on 3 L. Abdomen soft bowel sounds are heard. No masses or tenderness. Extremities are intact. No cyanosis clubbing or edema. Skin is without rash or lesion. Neurologic examination is brief but nonfocal. - Labs CBC & Chem 7: 12/23/23 07:09 12/23/23 07:09 Labs: Abnormal Lab Results - Last 24 Hours (Table) 12/27/23 12/27/23 Range/Units 17:01 19:53 POC Glucose (mg/dL) 143 H 143 H (70-110) mg/dL Assessment and Plan Assessment: Acute on chronic hypoxemic respiratory failure secondary to an acute exacerbation of chronic obstructive pulmonary disease. Troponin leak, suspect oxygen supply and demand mismatch. Former smoker. Anorexia/cachexia syndrome of chronic illness. Hyperlipidemia. Hypothyroidism. Hypertension. Plan: Plan dated December 25, 2023. The patient is seen in room 373. She continues on BiPAP, with settings of 12/5 and 40%. She is not receiving any IV fluids. She agreed to IV Solu-Medrol. She also agreed to breathing treatments with budesonide, and formoterol, at usual doses. Labs, x-rays, medications are reviewed. We will continue to support the patient, and see if we can improve her overall lung function, and her breathing issues. We will continue to see the patient, on a regular basis. Labs, x-rays, medications are reviewed. Prognosis is guarded. Plan dated December 26, 2023. The patient is seen today in room 373. She is on 3 L of oxygen. The patient did use the BiPAP device, from 10 PM to 6 AM this morning. Settings include 12/5 and 40%. The patient is not receiving any IV fluids. Labs, x-rays, and ms dications are reviewed. The patient appears to be doing much better. In addition, she is much more compliant with medications. We will continue to follow the patient, make recommendations. Prognosis is guarded. Plan dated December 28, 2023. The patient is doing better each day. She is seen today in room 373. She is short of breath with any activity. She continues on oxygen at 3 L. Labs, x-ray s, medications are reviewed. She continues on albuterol sulfate, mix with ipratropium bromide, 4 times daily and as needed, twice a day budesonide and formoterol, at usual doses, and Solu-Medrol. We will continue to follow the patient, make recommendations along the way. Labs, x-rays, medications are reviewed. The patient's overall prognosis remains guarded. Time with Patient: Less than 30
[2023-12-28 11:53] LABS: Glucose,Whole Blood 108 mg/dL (70-110)
[2023-12-28 16:40] LABS: Glucose,Whole Blood 161 mg/dL (70-110)
[2023-12-28 20:07] LABS: Glucose,Whole Blood 230 mg/dL (70-110)
--- NOTE | 2023-12-28 21:16 | PN ---
PROGRESS NOTE DATE OF SERVICE: 12/28/2023 CHIEF COMPLAINT: COPD. HISTORY OF PRESENT ILLNESS: This lady continues to struggle. She is still extremely dyspneic on oxygen even at rest. PHYSICAL EXAMINATION: CHEST: Clear but breath sounds are almost inaudible. She is using pursed lip breathing. Oxygen is in place. CARDIAC: Exam is normal. IMPRESSION: Severe COPD. PLAN: Continue current program and probably start to consider [facility] placement. MMODL / IJN: [id number] /
--- NOTE | 2023-12-28 22:30 | PN ---
PROGRESS NOTE DATE OF SERVICE: 12/25/2023 CHIEF COMPLAINT: Respiratory failure. HISTORY OF PRESENT ILLNESS: This lady is not doing very well. She barely is able to move about in the room for any distance at all. She is also being slightly more cooperative. PHYSICAL EXAMINATION: CHEST: Breath sounds are almost inaudible. She is on oxygen continuously. CARDIAC: Exam is normal. ABDOMEN: Soft. IMPRESSION: 1. Severe COPD. 2. Dehydration and malnutrition. PLAN: Continue inpatient management until she is able to either return home and live independently or will have to go to a rehab facility. MMODL / IJN: [id number] /
[2023-12-29 05:52] LABS: Glucose,Whole Blood 133 mg/dL (70-110)
[2023-12-29 11:50] LABS: Glucose,Whole Blood 168 mg/dL (70-110)
--- NOTE | 2023-12-29 12:19 | P.PN ---
Subjective Progress Note Date: 12/29/23 Principal diagnosis: COPD exacerbation This is a 68-year-old female patient with a known history of chronic tobacco dependence quit in 2009, chronic obstructive pulmonary disease, oxygen dependent, hyperlipidemia, hypothyroidism, hypertension who presented to the emergency room earlier today with complaints of increasing shortness of breath stating her apartment gets either too hot or too cold for her causing her shortness of breath. She is normally on oxygen at 3 L/min per nasal cannula at home. Her oxygen dropped to 80% with minimal activity. She is seen in consultation in the ER. She is on 5 L nasal cannula with O2 saturation at 96 she is afebrile. Hemodynamically stable. White count 9.8. Hemoglobin 13.5. Platelets 294. Sodium 130. Potassium 4.0. Bicarb 36. BUN 17. Creatinine 0.6. Glucose 108. D-dimer 0.38. Chest x-ray reveals no acute pulmonary pr ocess. The patient is seen today December 19, 2023 in follow-up in the emergency department. She is sitting up on the stretcher. Awake and alert in no acute distress. Breathing easier today compared to yesterday. She is maintaining good O2 saturations in the 90s on 3 L/min per nasal cannula. She has been afebrile. Hemodynamically stable. He remains on a heparin drip. Continued on DuoNeb ventilations, Symbicort, prednisone taper. Empiric antibiotics in the form of azithromycin. Remains on oral diuretics. Patient was eval today on December 1905/2024, patient is doing better, breathing easier, based on examination she clearly has severe underlying COPD. She has very diminished breath sound bilaterally no rhonchi no wheezes. She is on bronchodilators, antibiotics, she is also on 6 prednisone taper. Was empirically on antibiotic which was discontinued because of normal procalcitonin level. Overall the patient is feeling better, breathing easier, Patient was reevaluated today on 12/21/2023, patient is doing well, relatively asymptomatic, hardly any cough or wheezing, she does have chronic end-stage COPD and severe emphysema, patient is already on home oxygen, she does have all the bronchodilators at home, hence I am recommending discharging the patient home and follow-up on outpatient basis. As long as she is cleared by other consultants on the case. She was seen by cardiology for elevated troponin, felt to be none indicative of acute coronary syndrome. Hence heparin was disc ontinued, and cardiology signed off. And I for 1 I am clearing the patient for discharge home reevaluated today on 12/22/2023 I saw this patient in the morning, and she was doing well. However 2 hours after my evaluation, I was called about this patient having an episode of bronchospasm, and she was extremely short of breath. I recommended Decadron to be given also recommended that the patient goes on BiPAP, and a chest x-ray. Chest x-ray was reviewed, basically it is about the same, but she does have some left hilar fullness, hence I recommended a CT of the chest with contrast to rule out left hilar mass or adenopathy. In the meantime the patient responded well to treatment, and we will postpone plans for discharge home. Earlier I felt the patient could be discharged home, but considering the new development, discharge needs to be delayed for now. The patient is seen today December 23, 2023 in follow-up on the regular medical floor. She is currently sitting up in bed. Awake and alert in no acute distress. Maintaining O2 saturations in the 90s on 2 L/min per nasal cannula. No IV fluids. She remains on bronchodilators. She has been refusing most of her morning medications. Refused to wear the BiPAP. Refused to have a CAT scan done. Refused steroids. White count 9.8. Hemoglobin 11.7. Platelets 263. Arterial blood gases from yesterday revealed a PaO2 of 122, pCO2 65 and a pH of 7.37 on 50% FiO2. Today sodium 132. Potassium 4.5. Bicarb 37. BUN 24. Creatinine 0.5. Glucose 95. Remains afebrile. Hemodynamically stable. The patient is seen today December 24, 2023 in follow-up on the regular medical floor. She is awake and alert. She is having some mild respiratory distress apparently using some accessory muscles. Yesterday she had refused BiPAP support and was refusing her medications including steroids. Today she is bronchospastic and wheezing. She is on 2 L/min per nasal cannula. We did discuss the importance of taking her medication and utilizing BiPAP when she is in acute distress. She is agreeable now. She is placed on BiPAP 12/5 and 40% FiO2. She is been transitioned from Symbicort to Pulmicort and Perforomist inhalations, continued on DuoNeb inhalations, transitioned from prednisone back to IV Solu-Medrol. Progress note dated December 25, 2023. The patient was moved from the [facility] to room 373. The patient agreed to follow our instructions, so that we can improve her COPD. Initially, she was rejecting a lot of medications including breathing treatments, corticosteroids. We placed her on BiPAP, with settings of 12/5 and 40%. The patient is not receiving any IV fluids. The patient agreed to IV Solu-Medrol, and Pulmicort and formoterol, at usual doses. Today, although she still on BiPAP, she is feeling much better. Labs today include a glucose of 126. Progress note dated December 26, 2023. The patient was seen today in room 373. She is currently on 3 L by nasal cannula. No IV fluids. She apparently did use the BiPAP last night, with settings of 12/5, and 40%. She was on BiPAP from 10 PM to 6 AM. No new labs today other than a glucose of 121. Progress note dated December 28, 2023. The patient is seen today in room 373. She continues on oxygen at 3 L. She is not receiving any IV fluids. She did not use the BiPAP device last night. Each day, she feels a bit better. Labs today only include a glucose of 88. No recent chest x-ray to report. The patient continues on updrafts with albuterol sulfate ipratropium bromide, updrafts with Pulmicort, and formoterol, and Solu- Medrol. Progress note dated December 29, 2023. The patient is seen today in room 373. The patient continues on 3 L of oxygen. The patient is not receiving any IV fluids. She did not use the BiPAP device last night. Overall, she is doing better. Each day, just a bit better. She still very short of breath, especially with any activity. No new labs today other than a glucose of 168. Objective - Vital Signs Vital signs: Vital Signs Temp 97.6 F 12/29/23 11:13 Pulse 94 12/29/23 11:13 Resp 16 12/29/23 11:13 BP 141/64 12/29/23 11:13 Pulse Ox 96 12/29/23 11:13 FiO2 40 12/27/23 03:22 Intake & Output 12/28/23 12/29/23 12/29/23 18:59 06:59 18:59 Intake Total 480 120 118 Output Total 0 Balance 480 120 118 Intake: Oral 480 120 118 Output: Gastric Drainage 0 Urine 0 Stool 0 Urine/Stool Mix 0 Emesis 0 Other 0 Other: Voiding Method Toilet Toilet Toilet Bedside Commode Bedside Commode Bedside Commode Diaper Diaper Diaper Incontinent Incontinent Incontinent # Voids 2 1 1 # Bowel Movements 0 1 - Exam No acute distress, oriented 3. Currently, on 3 L nasal cannula. Saturations are 96%. HEENT examination is grossly unremarkable. Neck supple. Full range of motion. No adenopathy thyromegaly or neck vein distention. Cardiovascular examination reveals regular rhythm rate. S1-S2 normal. No S3 or S4. No discernible murmur noted. Heart rate 89 bpm. Heart sounds are distant. Lungs reveal scattered bilateral expiratory rhonchi and wheezes. No crackles. Breath sounds equal. Breath sounds are diminished throughout. Saturations are 86 % on 3 L. Abdomen soft bowel sounds are heard. No masses or tenderness. Extremities are intact. No cyanosis clubbing or edema. Skin is without rash or lesion. Neurologic examination is brief but nonfocal. - Labs CBC & Chem 7: 12/23/23 07:09 12/23/23 07:09 Labs: Abnormal Lab Results - Last 24 Hours (Table) 12/28/23 12/28/23 12/29/23 Range/Units 16:38 20:05 05:50 POC Glucose (mg/dL) 161 H 230 H 133 H (70-110) mg/dL 12/29/23 Range/Units 11:47 POC Glucose (mg/dL) 168 H (70-110) mg/dL Assessment and Plan Assessment: Acute on chronic hypoxemic respiratory failure secondary to an acute exacerbation of chronic obstructive pulmonary disease. Troponin leak, suspect oxygen supply and demand mismatch. Former smoker. Anorexia/cachexia syndrome of chronic illness. Hyperlipidemia. Hypothyroidism. Hypertension. Plan: Plan dated December 25, 2023. The patient is seen in room 373. She continues on BiPAP, with settings of 12/5 and 40%. She is not receiving any IV fluids. She agreed to IV Solu-Medrol. She also agreed to breathing treatments with budesonide, and formoterol, at usual doses. Labs, x-rays, medications are reviewed. We will continue to support the patient, and see if we can improve her overall lung function, and her breathing issues. We will continue to see the patient, on a regular basis. Labs, x-rays, medications are reviewed. Prognosis is guarded. Plan dated December 26, 2023. The patient is seen today in room 373. She is on 3 L of oxygen. The patient did use the BiPAP device, from 10 PM to 6 AM this morning. Settings include 12/5 and 40%. The patient is not receiving any IV fluids. Labs, x-rays, and medications are reviewed. The patient appears to be doing much better. In addition, she is much more compliant with medications. We will continue to follow the patient, make recommendations. Prognosis is guarded. Plan dated December 28, 2023. The patient is doing better each day. She is seen today in room 373. She is short of breath with any activity. She continues on oxygen at 3 L. Labs, x- rays, medications are reviewed. She continues on albuterol sulfate, mix with ipratropium bromide, 4 times daily and as needed, twice a day budesonide and formoterol, at usual doses, and Solu-Medrol. We will continue to follow the patient, make recommendations along the way. Labs, x-rays, medications are reviewed. The patient's overall prognosis remains guarded. Plan dated December 29, 2023. The patient continues to show improvement. He is currently on 3 L of oxygen. The patient's not receiving any IV fluids. Labs, x-rays, medications are reviewed. The patient continues on albuterol sulfate, ipratropium bromide, budesonide, formoterol, and Solu-Medrol. We will continue to follow the patient, make recommendations. The patient did not require BiPAP or use the BiPAP last night. She has not used it for the last couple of nights, and can probably be discontinued. Time with Patient: Less than 30
[2023-12-29 16:18] LABS: Glucose,Whole Blood 134 mg/dL (70-110)
[2023-12-29 20:43] LABS: Glucose,Whole Blood 139 mg/dL (70-110)
[2023-12-30 06:12] LABS: Glucose,Whole Blood 80 mg/dL (70-110)
[2023-12-30 11:48] LABS: Glucose,Whole Blood 201 mg/dL (70-110)
--- NOTE | 2023-12-30 15:32 | P.PN ---
Subjective Progress Note Date: 12/30/23 This is a 68-year-old female patient with a known history of chronic tobacco dependence quit in 2009, chronic obstructive pulmonary disease, oxygen dependent, hyperlipidemia, hypothyroidism, hypertension who presented to the emergency room earlier today with complaints of increasing shortness of breath s tating her apartment gets either too hot or too cold for her causing her shortness of breath. She is normally on oxygen at 3 L/min per nasal cannula at home. Her oxygen dropped to 80% with minimal activity. She is seen in consultation in the ER. She is on 5 L nasal cannula with O2 saturation at 96 she is afebrile. Hemodynamically stable. White count 9.8. Hemoglobin 13.5. Platelets 294. Sodium 130. Potassium 4.0. Bicarb 36. BUN 17. Creatinine 0.6. Glucose 108. D-dimer 0.38. Chest x-ray reveals no acute pulmonary process. The patient is seen today December 19, 2023 in follow-up in the emergency department. She is sitting up on the stretcher. Awake and alert in no acute distress. Breathing easier today compared to yesterday. She is maintaining good O2 saturations in the 90s on 3 L/min per nasal cannula. She has been afebrile. Hemodynamically stable. He remains on a heparin drip. Continued on DuoNeb ventilations, Symbicort, prednisone taper. Empiric antibiotics in the form of azithromycin. Remains on oral diuretics. Patient was eval today on December 1905/2024, patient is doing better, breathing easier, based on examination she clearly has severe underlying COPD. She has very diminished breath sound bilaterally no rhonchi no wheezes. She is on bronchodilators, antibiotics, she is also on 6 prednisone taper. Was empirically on antibiotic which was discontinued because of normal procalcitonin level. Overall the patient is feeling better, breathing easier, Patient was reevaluated today on 12/21/2023, patient is doing well, relatively asymptomatic, hardly any cough or wheezing, she does have chronic end-stage COPD and severe emphysema, patient is already on home oxygen, she does have all the bronchodilators at home, hence I am recommending discharging the patient home and follow-up on outpatient basis. As long as she is cleared by other consultants on the case. She was seen by cardiology for elevated troponin, felt to be none indicative of acute coronary syndrome. Hence heparin was discontinued, and cardiology signed off. And I for 1 I am clearing the patient for discharge home reevaluated today on 12/22/2023 I saw this patient in the morning, and she was doing well. However 2 hours after my evaluation, I was called about this patient having an episode of bronchospasm, and she was extremely short of breath. I recommended Decadron to be given also recommended that the patient goes on BiPAP, and a chest x-ray. Chest x-ray was reviewed, basically it is about the same, but she does have some left hilar fullness, hence I recommended a CT of the chest with contrast to rule out left hilar mass or adenopathy. In the meantime the patient responded well to treatment, and we will postpone plans for discharge home. Earlier I felt the patient could be discharged home, but considering the new development, discharge needs to be delayed for now. The patient is seen today December 23, 2023 in follow-up on the regular medical floor. She is currently sitting up in bed. Awake and alert in no acute distress. Maintaining O2 saturations in the 90s on 2 L/min per nasal cannula. No IV fluids. She remains on bronchodilators. She has been refusing most of her morning medications. Refused to wear the BiPAP. Refused to have a CAT scan done. Refused steroids. White count 9.8. Hemoglobin 11.7. Platelets 263. Arterial blood gases from yesterday revealed a PaO2 of 122, pCO2 65 and a pH of 7.37 on 50% FiO2. Today sodium 132. Potassium 4.5. Bicarb 37. BUN 24. Creatinine 0.5. Glucose 95. Remains afebrile. Hemodynamically stable. The patient is seen today December 24, 2023 in follow-up on the regular medical floor. She is awake and alert. She is having some mild respiratory distress apparently using some accessory muscles. Yesterday she had refused BiPAP support and was refusing her medications including steroids. Today she is bronchospastic and wheezing. She is on 2 L/min per nasal cannula. We did discuss the importance of taking her medication and utilizing BiPAP when she is in acute distress. She is agreeable now. She is placed on BiPAP 12/5 and 40% FiO2. She is been transitioned from Symbicort to Pulmicort and Perforomist inhalations, continued on DuoNeb inhalations, transitioned from prednisone back to IV Solu-Medrol. Progress note dated December 25, 2023. The patient was moved from the [facility] to room 373. The patient agreed to follow our instructions, so that we can improve her COPD. Initially, she was rejecting a lot of medications including breathing treatments, corticosteroids. We placed her on BiPAP, with settings of 12/5 and 40%. The patient is not receiving any IV fluids. The patient agreed to IV Solu-Medrol, and Pulmicort and formoterol, at usual doses. Today, although she still on BiPAP, she is feeling much better. Labs today include a glucose of 126. Progress note dated December 26, 2023. The patient was seen today in room 373. She is currently on 3 L by nasal cannula. No IV fluids. She apparently did use the BiPAP last night, with settings of 12/5, and 40%. She was on BiPAP from 10 PM to 6 AM. No new labs today other than a glucose of 121. Progress note dated December 28, 2023. The patient is seen today in room 373. She continues on oxygen at 3 L. She is not receiving any IV fluids. She did not use the BiPAP device last night. Each day, she feels a bit better. Labs today only include a glucose of 88. No recent chest x-ray to report. The patient continues on updrafts with albuterol sulfate ipratropium bromide, updrafts with Pulmicort, and formoterol, and Solu- Medrol. Progress note dated December 29, 2023. The patient is seen today in room 373. The patient continues on 3 L of oxygen. The patient is not receiving any IV fluids. She did not use the BiPAP device last night. Overall, she is doing better. Each day, just a bit better. She still very short of breath, especially with any activity. No new labs today other than a glucose of 168. 12/30/2023, the patient is being seen for a follow-up. The patient was hospitalized for an acute stroke exacerbation. The patient has been maintained on a combination of Symbicort and Incruse on outpatient basis. Currently the patient is on 3 L of oxygen by nasal cannula. The patient is on DuoNeb updrafts and the patient is also on a combination performance of [facility] twice a day. The patient is still on Solu-Medrol 60 mg IV every 8 hours. Feeling less short of breath. Less bronchospastic and wheezy. No other new complaints otherwise for now. No new labs are available from today. The patient's chest x-ray from the time of admission showed COPD. There was possibly a trace right- sided pleural effusion. The echocardiogram that was done on 12/19/2023 showed a preserved LV function without any significant valvular abnormalities. Objective - Vital Signs Vital signs: Vital Signs Temp 98.3 F 12/30/23 09:15 Pulse 102 H 12/30/23 09:15 Resp 22 12/30/23 09:15 BP 176/88 12/30/23 09:15 Pulse Ox 91 L 12/30/23 09:15 FiO2 40 12/27/23 03:22 Intake & Output 12/29/23 12/30/23 12/30/23 18:59 06:59 18:59 Intake Total 358 240 Balance 358 240 Weight 37.6 kg Intake: Oral 358 240 Other: Voiding Method Toilet Bedside Commode Bedside Commode Bedside Commode Diaper Incontinent # Voids 1 1 1 # Bowel Movements 1 - Exam No acute distress, oriented 3. Currently, on 3 L nasal cannula. Calm and comfortable without any significant respiratory distress HEENT examination is grossly unremarkable. Neck supple. Full range of motion. No adenopathy thyromegaly or neck vein d istention. Cardiovascular examination reveals regular rhythm rate. S1-S2 normal. No S3 or S4. No discernible murmur noted. Heart sounds are distant. Lungs reveal scattered bilateral expiratory rhonchi and wheezes. No crackles. Breath sounds equal. Breath sounds are diminished throughout. Abdomen soft bowel sounds are heard. No masses or tenderness. Extremities are intact. No cyanosis clubbing or edema. Skin is without rash or lesion. Neurologic examination is brief but nonfocal. - Labs CBC & Chem 7: 12/23/23 07:09 12/23/23 07:09 Labs: Abnormal Lab Results - Last 24 Hours (Table) 12/29/23 12/29/23 12/29/23 Range/Units 11:47 16:11 20:42 POC Glucose (mg/dL) 168 H 134 H 139 H (70-110) mg/dL Assessment and Plan Plan: Acute on chronic hypoxemic respiratory failure secondary to an acute exacerbation of chronic obstructive pulmonary disease. Clinically improving. No significant shortness of breath as the patient is on DuoNeb updrafts, Perf oromist and Pulmicort nebulized treatments twice a day and IV Solu-Medrol. Troponin leak, suspect oxygen supply and demand mismatch. Former smoker. Anorexia/cachexia syndrome of chronic illness. Hyperlipidemia. Hypothyroidism. Hypertension. Plan: Discontinue IV Solu-Medrol start the patient on prednisone burst taper Continue DuoNeb updrafts Continue Perforomist and Pulmicort nebulized treatments twice a day and this will be transition to either Trelegy Ellipta or a combination of Symbicort and Incruse on outpatient basis Patient has chronic hypoxic respiratory failure on 3 L of oxygen by nasal cannula which is her baseline We will continue to follow.
[2023-12-30 16:49] LABS: Glucose,Whole Blood 123 mg/dL (70-110)
[2023-12-30] MEDS: predniSONE 20 MG TAB PO SCH (17:16)
[2023-12-30 20:35] LABS: Glucose,Whole Blood 258 mg/dL (70-110)
[2023-12-30] MEDS ORDERED: DEXTROSE 50% SYRINGE 50 ML IVP PRN ×2 (21:21)
[2023-12-30] MEDS: INSULIN ASPART (NovoLOG) 100 UNIT/ML VIAL SQ SCH (21:56)
[2023-12-31 06:23] LABS: Glucose,Whole Blood 109 mg/dL (70-110)
[2023-12-31 11:34] LABS: Glucose,Whole Blood 123 mg/dL (70-110)
--- NOTE | 2023-12-31 11:55 | PN ---
PROGRESS NOTE DATE OF SERVICE: 12/29/2023 CHIEF COMPLAINT: Acute respiratory failure. HISTORY OF PRESENT ILLNESS: This lady is not doing well. Breathing is barely functional. She can hardly get to the bathroom and back. She denies chest pain. PHYSICAL EXAMINATION: CHEST: Breath sounds are extremely poor. VITAL SIGNS: Normal. ABDOMEN: Flat, soft, nontender. IMPRESSION: Exacerbation of severe chronic obstructive pulmonary disease. PLAN: Continue with current efforts to improve her respirations with the hope that she can go home where she lives alone. MMODL / IJN: [id number] /
--- NOTE | 2023-12-31 12:04 | PN ---
PROGRESS NOTE DATE OF SERVICE: 12/30/2023 CHIEF COMPLAINT: COPD. HISTORY OF PRESENT ILLNESS: This lady remains severely short of breath with the least amount of exertion. She is on at least 3 L of nasal O2 around the clock. She denies chest pain. She is still very dyspneic. She is not bringing up any phlegm. PHYSICAL EXAMINATION: CHEST: Breath sounds are extremely poor. There are no rales. CARDIAC: Demonstrated sinus rhythm. ABDOMEN: Soft, nontender. IMPRESSION: 1. Exacerbation of chronic obstructive pulmonary disease. 2. Respiratory failure. PLAN: Continue with supportive care. She may have to go to rehab facility. MMODL / IJN: [id number] /
[2023-12-31 16:16] VITALS: BMI 15.6
[2023-12-31 16:46] LABS: Glucose,Whole Blood 148 mg/dL (70-110)
[2023-12-31 19:56] LABS: Glucose,Whole Blood 164 mg/dL (70-110)
--- NOTE | 2023-12-31 22:16 | P.PN ---
Subjective Progress Note Date: 12/31/23 This is a 68-year-old female patient with a known history of chronic tobacco dependence quit in 2009, chronic obstructive pulmonary disease, oxygen dependent, hyperlipidemia, hypothyroidism, hypertension who presented to the emergency room earlier today with complaints of increasing shortness of breath s tating her apartment gets either too hot or too cold for her causing her shortness of breath. She is normally on oxygen at 3 L/min per nasal cannula at home. Her oxygen dropped to 80% with minimal activity. She is seen in consultation in the ER. She is on 5 L nasal cannula with O2 saturation at 96 she is afebrile. Hemodynamically stable. White count 9.8. Hemoglobin 13.5. Platelets 294. Sodium 130. Potassium 4.0. Bicarb 36. BUN 17. Creatinine 0.6. Glucose 108. D-dimer 0.38. Chest x-ray reveals no acute pulmonary process. The patient is seen today December 19, 2023 in follow-up in the emergency department. She is sitting up on the stretcher. Awake and alert in no acute distress. Breathing easier today compared to yesterday. She is maintaining good O2 saturations in the 90s on 3 L/min per nasal cannula. She has been afebrile. Hemodynamically stable. He remains on a heparin drip. Continued on DuoNeb ventilations, Symbicort, prednisone taper. Empiric antibiotics in the form of azithromycin. Remains on oral diuretics. Patient was eval today on December 1905/2024, patient is doing better, breathing easier, based on examination she clearly has severe underlying COPD. She has very diminished breath sound bilaterally no rhonchi no wheezes. She is on bronchodilators, antibiotics, she is also on 6 prednisone taper. Was empirically on antibiotic which was discontinued because of normal procalcitonin level. Overall the patient is feeling better, breathing easier, Patient was reevaluated today on 12/21/2023, patient is doing well, relatively asymptomatic, hardly any cough or wheezing, she does have chronic end-stage COPD and severe emphysema, patient is already on home oxygen, she does have all the bronchodilators at home, hence I am recommending discharging the patient home and follow-up on outpatient basis. As long as she is cleared by other consultants on the case. She was seen by cardiology for elevated troponin, felt to be none indicative of acute coronary syndrome. Hence heparin was discontinued, and cardiology signed off. And I for 1 I am clearing the patient for discharge home reevaluated today on 12/22/2023 I saw this patient in the morning, and she was doing well. However 2 hours after my evaluation, I was called about this patient having an episode of bronchospasm, and she was extremely short of breath. I recommended Decadron to be given also recommended that the patient goes on BiPAP, and a chest x-ray. Chest x-ray was reviewed, basically it is about the same, but she does have some left hilar fullness, hence I recommended a CT of the chest with contrast to rule out left hilar mass or adenopathy. In the meantime the patient responded well to treatment, and we will postpone plans for discharge home. Earlier I felt the patient could be discharged home, but considering the new development, discharge needs to be delayed for now. The patient is seen today December 23, 2023 in follow-up on the regular medical floor. She is currently sitting up in bed. Awake and alert in no acute distress. Maintaining O2 saturations in the 90s on 2 L/min per nasal cannula. No IV fluids. She remains on bronchodilators. She has been refusing most of her morning medications. Refused to wear the BiPAP. Refused to have a CAT scan done. Refused steroids. White count 9.8. Hemoglobin 11.7. Platelets 263. Arterial blood gases from yesterday revealed a PaO2 of 122, pCO2 65 and a pH of 7.37 on 50% FiO2. Today sodium 132. Potassium 4.5. Bicarb 37. BUN 24. Creatinine 0.5. Glucose 95. Remains afebrile. Hemodynamically stable. The patient is seen today December 24, 2023 in follow-up on the regular medical floor. She is awake and alert. She is having some mild respiratory distress apparently using some accessory muscles. Yesterday she had refused BiPAP support and was refusing her medications including steroids. Today she is bronchospastic and wheezing. She is on 2 L/min per nasal cannula. We did discuss the importance of taking her medication and utilizing BiPAP when she is in acute distress. She is agreeable now. She is placed on BiPAP 12/5 and 40% FiO2. She is been transitioned from Symbicort to Pulmicort and Perforomist inhalations, continued on DuoNeb inhalations, transitioned from prednisone back to IV Solu-Medrol. Progress note dated December 25, 2023. The patient was moved from [facility] to room 373. The patient agreed to follow our instructions, so that we can improve her COPD. Initially, she was rejecting a lot of medications including breathing treatments, corticosteroids. We placed her on BiPAP, with settings of 12/5 and 40%. The patient is not receiving any IV fluids. The patient agreed to IV Solu-Medrol, and Pulmicort and formoterol, at usual doses. Today, although she still on BiPAP, she is feeling much better. Labs today include a glucose of 126. Progress note dated December 26, 2023. The patient was seen today in room 373. She is currently on 3 L by nasal cannula. No IV fluids. She apparently did use the BiPAP last night, with settings of 12/5, and 40%. She was on BiPAP from 10 PM to 6 AM. No new labs today other than a glucose of 121. Progress note dated December 28, 2023. The patient is seen today in room 373. She continues on oxygen at 3 L. She is not receiving any IV fluids. She did not use the BiPAP device last night. Each day, she feels a bit better. Labs today only include a glucose of 88. No recent chest x-ray to report. The patient continues on updrafts with albuterol sulfate ipratropium bromide, updrafts with Pulmicort, and formoterol, and Solu- Medrol. Progress note dated December 29, 2023. The patient is seen today in room 373. The patient continues on 3 L of oxygen. The patient is not receiving any IV fluids. She did not use the BiPAP device last night. Overall, she is doing better. Each day, just a bit better. She still very short of breath, especially with any activity. No new labs today other than a glucose of 168. 12/30/2023, the patient is being seen for a follow-up. The patient was hospitalized for an acute stroke exacerbation. The patient has been maintained on a combination of Symbicort and Incruse on outpatient basis. Currently the patient is on 3 L of oxygen by nasal cannula. The patient is on DuoNeb updrafts and the patient is also on a combination performance of Pulmicort updrafts twice a day. The patient is still on Solu-Medrol 60 mg IV every 8 hours. Feeling less short of breath. Less bronchospastic and wheezy. No other new complaints otherwise for now. No new labs are available from today. The patient's chest x-ray from the time of admission showed COPD. There was possibly a trace right- sided pleural effusion. The echocardiogram that was done on 12/19/2023 showed a preserved LV function without any significant valvular abnormalities. On today's evaluation on 12/31/2023, the patient is stable. She is feeling weak. She feels that the respiratory status is gradually improved over the past 2 weeks. She is currently on DuoNeb updrafts. She is also on a prednisone burst taper and the patient was started on 40 mg of prednisone as of yesterday. She remains on a combination of Perforomist and Pulmicort nebulized treatments twice a day. She went to the bathroom independently and she got worked up but she became slightly more short of breath however after arrival back to her bed, she seems to have recovered. Overall condition is stable for now. She is looking into rehabilitation. Actually she is also stable and the patient is currently on 3 L of oxygen by nasal cannula with a pulse ox of 93%. No other significant events overnight. Objective - Vital Signs Vital signs: Vital Signs Temp 97.6 F 12/30/23 20:13 Pulse 83 12/31/23 04:51 Resp 18 12/31/23 04:51 BP 135/74 12/31/23 04:51 Pulse Ox 99 12/31/23 04:51 FiO2 40 12/27/23 03:22 Intake & Output 12/30/23 12/31/23 12/31/23 18:59 06:59 18:59 Intake Total 480 360 Balance 480 360 Intake: Oral 480 360 Other: Voiding Method Bedside Commode Bedside Commode # Voids 1 1 1 # Bowel Movements 1 2 - Exam No acute distress, oriented 3. Currently, on 3 L nasal cannula. Calm and comfortable without any significant respiratory distress HEENT examination is grossly unremarkable. Neck supple. Full range of motion. No adenopathy thyromegaly or neck vein distention. Cardiovascular examination reveals regular rhythm rate. S1-S2 normal. No S3 or S4. No discernible murmur noted. Heart sounds are distant. Lungs reveal scattered bilateral expiratory rhonchi and wheezes. No crackles. Breath sounds equal. Breath sounds are diminished throughout. Abdomen soft bowel sounds are heard. No masses or tenderness. Extremities are intact. No cyanosis clubbing or edema. Skin is without rash or lesion. Neurologic examination is brief but nonfocal. - Labs CBC & Chem 7: 12/23/23 07:09 12/23/23 07:09 Labs: Abnormal Lab Results - Last 24 Hours (Table) 12/30/23 12/30/23 12/30/23 Range/Units 11:47 16:47 20:24 POC Glucose (mg/dL) 201 H 123 H 258 H (70-110) mg/dL Assessment and Plan Plan: Acute on chronic hypoxemic respiratory failure secondary to an acute exacerbation of chronic obstructive pulmonary disease. Clinically improving. No significant shortness of breath as the patient is on DuoNeb updrafts, Perforomist and Pulmicort nebulized treatments twice a day and steroids in the form of oral prednisone Troponin leak, suspect oxygen supply and demand mismatch. Former smoker. Anorexia/cachexia syndrome of chronic illness. Hyperlipidemia. Hypothyroidism. Hypertension. Plan: Clinically stable Oxygen requirements are at 3 L/min nasal cannula Continue DuoNeb updrafts Continue Perforomist and Pulmicort nebulized treatments twice a day and this will be transition to either Trelegy Ellipta or a combination of Symbicort and Incruse on outpatient basis The patient is weak and the patient may benefit from rehabilitation on outpatient basis Physical therapy Increase mobility Patient has chronic hypoxic respiratory failure on 3 L of oxygen by nasal cannula which is her baseline We will continue to follow.
--- NOTE | 2024-01-01 00:51 | PN ---
PROGRESS NOTE DATE OF SERVICE: 12/31/2023 CHIEF COMPLAINT: Respiratory failure. HISTORY OF PRESENT ILLNESS: This lady is fairly stable. She still needs and continue with around the clock oxygen support. She is very weak. Discharge planning has been requested. PHYSICAL EXAMINATION: CHEST: She is tachypneic. Breath sounds are almost inaudible. CARDIAC: normal. IMPRESSION: Exacerbation of chronic obstructive pulmonary disease with respiratory failure. PLAN: Look into the discharge plan. She will probably have to go to rehab. MIGUEL ANGEL / SIOMARAN: [id number] /
[2024-01-01 04:55] LABS: Glucose,Whole Blood 96 mg/dL (70-110)
[2024-01-01 11:38] VITALS: RESP 20
[2024-01-01 11:39] LABS: Glucose,Whole Blood 202 mg/dL (70-110)
[2024-01-01] MEDS: LORATADINE 10 MG TAB PO SCH (11:49)
--- NOTE | 2024-01-01 13:58 | P.DS ---
Providers Date of admission: 12/18/23 13:06 Attending physician: Ariel Corley Consults: 12/18/23 13:07 Consult Physician Routine Consulting Provider: Ugo Gimenez Consult Reason/Comments: respiratory failure Do you want consulting provider notified?: Yes 12/18/23 16:05 Consult Physician Routine Consulting Provider: Antoine Pierson Consult Reason/Comments: COPD, elev. BNP and trops. Do you want consulting provider notified?: Yes Primary care physician: Ariel Corley Hospital Course: Final Diagnosis Acute on chronic hypoxemic respiratory failure secondary to an acute COPD exacerbation Troponin leak this is a type II TX secondary to an oxygen supply demand mismatch Cachexia syndrome Hypothyroidism Hypertension Hyperlipidemia Former smoker Schizophrenia Discharge Disposition Patient stable for discharge to subacute rehab patient be discharging tomorrow at rehabilitation center. As mentioned below patient is continued on a combination of Symbicort twice a day 2 inhalations and Incruse once daily additionally patient will continue on an oral prednisone burst and taper. Plan to hold losartan at this time as patient's blood pressure is low normal. Blood work in 2 to 3 days. Follow-up close with Dr. Corley in 1 to 2 days on discharge and patient to see her usual hammerer tab Dr. Coker on discharge in 1 to 2 weeks. Hospital Course This is a pleasant 68-year-old female who follows with Dr. Ariel Corley in the medical office. Patient came into the hospital back on December 17 secondary to worsening shortness of breath. Patient is an oxygen dependent on 3 years of nasal cannula history of COPD and asthma. Patient's pulse oximeter was dropping down to 80% saturation with minimal activity so she came into the hospital for further evaluation. Patient was placed on 5 L of oxygen she was admitted started on IV steroids with a consult placed to pulmonary and cardiology services. Patient did have an echocardiogram done showing normal LV systolic function poorly visualized intracardiac and aortic valves. Patient required BiPAP and was continued on scheduled breathing treatments in the form of neb updrafts, Perforomist and Pulmicort nebulized. Patient has been up to the bathroom independently she does significantly short of breath with activity and is requiring oxygen [id number] as per her baseline. She was seen and evaluated the pulmonary service today who is cleared her for discharge. Cardiology felt that the troponin elevation was not secondary to an acute coronary syndrome and has signed off on the service. Patient was recommended to discontinue the Trelegy and continue on a combination of Symbicort and Incruse on an outpatient basis. Most recent blood work reveals a white blood cell count of 9.86, hemoglobin 11.7, sodium of 132, potassium 4.5, BUN of 24, creatinine of 0.5. Her blood glucose has been in the 150s. Patient is alert X 3 with no focal neurological deficits. Her lungs are clear but diminished. She is afebrile r ate is 100 normal sinus rhythm, show 103/68 and she is 94% on 3-4 L of oxygen. Please see medication reconciliation for a list of current medications. Thank you for allowing us to participate in the care of this patient. The impression and plan of care has been dictated by Piedad Bush, Nurse Practitioner as directed. Dr. Lisa MD I have performed a history and physical examination and medical decision making of this patient, discussed the same with the dictator, and agree with the dictators assessment and plan as written, documented as a scribe. Based on total visit time, I have performed more than 50% of this visit. Patient Condition at Discharge: Fair Plan - Discharge Summary Discharge Rx Participant: No New Discharge Prescriptions: New Loratadine [Claritin] 5 mg PO DAILY tab INSULIN ASPART (NovoLOG) [NovoLOG (formulary)] 0 unit SQ ACHS each predniSONE 0 mg PO DIRECTED 16 Days #38 tab Umeclidinium Milligan [Incruse Ellipta] 1 puff INHALATION DAILY #1 each Continue Budesonide-Formot 160-4.5 Mcg [Symbicort 160-4.5 Mcg Inhaler] 2 puff I NHALATION RT-BID@1000,2200 Furosemide [Lasix] 20 mg PO BID Pravastatin Sodium [Pravachol] 20 mg PO DAILY Levothyroxine Sodium [Synthroid] 25 mcg PO DAILY risperiDONE [RisperDAL] 1 mg PO HS Losartan [Cozaar] 50 mg PO DAILY Calcium Carbonate [Calcium] 600 mg PO DAILY Cholecalciferol [Vitamin D3 (25 Mcg = 1000 Iu)] 25 mcg PO DAILY Albuterol Inhaler [Ventolin Hfa Inhaler] 2 puff INHALATION RT-DAILY@0800 Albuterol Inhaler [Ventolin Hfa Inhaler] 1 - 2 puff INHALATION RT-QID PRN PRN Reason: Shortness Of Breath Discontinued Fluticasone/Umeclidin/Vilanter [Trelegy Ellipta 100-62.5-25] 1 puff INHALATION RT-DAILY@1030 Levofloxacin [Levaquin] 250 mg PO DAILY@1600 Discharge Medication List Budesonide-Formot 160-4.5 Mcg [Symbicort 160-4.5 Mcg Inhaler] 2 puff INHALATION RT-BID@1000,2200 11/04/15 [History] Furosemide [Lasix] 20 mg PO BID 01/09/16 [History] Albuterol Inhaler [Ventolin Hfa Inhaler] 1 - 2 puff INHALATION RT-QID PRN 12/18/23 [History] Albuterol Inhaler [Ventolin Hfa Inhaler] 2 puff INHALATION RT-DAILY@0800 12/18/23 [History] Calcium Carbonate [Calcium] 600 mg PO DAILY 12/18/23 [History] Cholecalciferol [Vitamin D3 (25 Mcg = 1000 Iu)] 25 mcg PO DAILY 12/18/23 [History] Levothyroxine Sodium [Synthroid] 25 mcg PO DAILY 12/18/23 [History] Losartan [Cozaar] 50 mg PO DAILY 12/18/23 [History] Pravastatin Sodium [Pravachol] 20 mg PO DAILY 12/18/23 [History] risperiDONE [RisperDAL] 1 mg PO HS 12/18/23 [History] INSULIN ASPART (NovoLOG) [NovoLOG (formulary)] 0 unit SQ ACHS each 01/01/24 [Rx] Loratadine [Claritin] 5 mg PO DAILY tab 01/01/24 [Rx] Umeclidinium Milligan [Incruse Ellipta] 1 puff INHALATION DAILY #1 each 01/01/24 [Rx] predniSONE 0 mg PO DIRECTED 16 Days #38 tab 01/01/24 [Rx] Follow up Appointment(s)/Referral(s): Ugo Gimenez MD [STAFF PHYSICIAN] - 1 Week Ariel Corley MD [Primary Care Provider] - 1-2 days [facility] [NON-STAFF] - Ambulatory/Diagnostic Orders: Basic Metabolic Panel [LAB.AMB] Time Frame: 3 Days, Location: None Selected Complete Blood Count w/diff [LAB.AMB] Location: None Selected Activity/Diet/Wound Care/Special Instructions: Discharge to [facility] Follow up with Dr. Gimenez in the office 1 to 2 weeks Discharge/Stand Alone Forms: Who Do I Call?, Community Resources, Personal Yeast Pusher Discharge Disposition: TRANSFER TO SNF/ECF
--- NOTE | 2024-01-01 15:13 | P.PN ---
Subjective Progress Note Date: 01/01/24 This is a 68-year-old female patient with a known history of chronic tobacco dependence quit in 2009, chronic obstructive pulmonary disease, oxygen dependent, hyperlipidemia, hypothyroidism, hypertension who presented to the emergency room earlier today with complaints of increasing shortness of breath s tating her apartment gets either too hot or too cold for her causing her shortness of breath. She is normally on oxygen at 3 L/min per nasal cannula at home. Her oxygen dropped to 80% with minimal activity. She is seen in consultation in the ER. She is on 5 L nasal cannula with O2 saturation at 96 she is afebrile. Hemodynamically stable. White count 9.8. Hemoglobin 13.5. Platelets 294. Sodium 130. Potassium 4.0. Bicarb 36. BUN 17. Creatinine 0.6. Glucose 108. D-dimer 0.38. Chest x-ray reveals no acute pulmonary process. The patient is seen today December 19, 2023 in follow-up in the emergency department. She is sitting up on the stretcher. Awake and alert in no acute distress. Breathing easier today compared to yesterday. She is maintaining good O2 saturations in the 90s on 3 L/min per nasal cannula. She has been afebrile. Hemodynamically stable. He remains on a heparin drip. Continued on DuoNeb ventilations, Symbicort, prednisone taper. Empiric antibiotics in the form of azithromycin. Remains on oral diuretics. Patient was eval today on December 1905/2024, patient is doing better, breathing easier, based on examination she clearly has severe underlying COPD. She has very diminished breath sound bilaterally no rhonchi no wheezes. She is on bronchodilators, antibiotics, she is also on 6 prednisone taper. Was empirically on antibiotic which was discontinued because of normal procalcitonin level. Overall the patient is feeling better, breathing easier, Patient was reevaluated today on 12/21/2023, patient is doing well, relatively asymptomatic, hardly any cough or wheezing, she does have chronic end-stage COPD and severe emphysema, patient is already on home oxygen, she does have all the bronchodilators at home, hence I am recommending discharging the patient home and follow-up on outpatient basis. As long as she is cleared by other consultants on the case. She was seen by cardiology for elevated troponin, felt to be none indicative of acute coronary syndrome. Hence heparin was discontinued, and cardiology signed off. And I for 1 I am clearing the patient for discharge home reevaluated today on 12/22/2023 I saw this patient in the morning, and she was doing well. However 2 hours after my evaluation, I was called about this patient having an episode of bronchospasm, and she was extremely short of breath. I recommended Decadron to be given also recommended that the patient goes on BiPAP, and a chest x-ray. Chest x-ray was reviewed, basically it is about the same, but she does have some left hilar fullness, hence I recommended a CT of the chest with contrast to rule out left hilar mass or adenopathy. In the meantime the patient responded well to treatment, and we will postpone plans for discharge home. Earlier I felt the patient could be discharged home, but considering the new development, discharge needs to be delayed for now. The patient is seen today December 23, 2023 in follow-up on the regular medical floor. She is currently sitting up in bed. Awake and alert in no acute distress. Maintaining O2 saturations in the 90s on 2 L/min per nasal cannula. No IV fluids. She remains on bronchodilators. She has been refusing most of her morning medications. Refused to wear the BiPAP. Refused to have a CAT scan done. Refused steroids. White count 9.8. Hemoglobin 11.7. Platelets 263. Arterial blood gases from yesterday revealed a PaO2 of 122, pCO2 65 and a pH of 7.37 on 50% FiO2. Today sodium 132. Potassium 4.5. Bicarb 37. BUN 24. Creatinine 0.5. Glucose 95. Remains afebrile. Hemodynamically stable. The patient is seen today December 24, 2023 in follow-up on the regular medical floor. She is awake and alert. She is having some mild respiratory distress apparently using some accessory muscles. Yesterday she had refused BiPAP support and was refusing her medications including steroids. Today she is bronchospastic and wheezing. She is on 2 L/min per nasal cannula. We did discuss the importance of taking her medication and utilizing BiPAP when she is in acute distress. She is agreeable now. She is placed on BiPAP 12/5 and 40% FiO2. She is been transitioned from Symbicort to Pulmicort and Perforomist inhalations, continued on DuoNeb inhalations, transitioned from prednisone back to IV Solu-Medrol. Progress note dated December 25, 2023. The patient was moved from the [facility] to room 373. The patient agreed to follow our instructions, so that we can improve her COPD. Initially, she was rejecting a lot of medications including breathing treatments, corticosteroids. We placed her on BiPAP, with settings of 12/5 and 40%. The patient is not receiving any IV fluids. The patient agreed to IV Solu-Medrol, and Pulmicort and formoterol, at usual doses. Today, although she still on BiPAP, she is feeling much better. Labs today include a glucose of 126. Progress note dated December 26, 2023. The patient was seen today in room 373. She is currently on 3 L by nasal cannula. No IV fluids. She apparently did use the BiPAP last night, with settings of 12/5, and 40%. She was on BiPAP from 10 PM to 6 AM. No new labs today other than a glucose of 121. Progress note dated December 28, 2023. The patient is seen today in room 373. She continues on oxygen at 3 L. She is not receiving any IV fluids. She did not use the BiPAP device last night. Each day, she feels a bit better. Labs today only include a glucose of 88. No recent chest x-ray to report. The patient continues on updrafts with albuterol sulfate ipratropium bromide, updrafts with Pulmicort, and formoterol, and Solu- Medrol. Progress note dated December 29, 2023. The patient is seen today in room 373. The patient continues on 3 L of oxygen. The patient is not receiving any IV fluids. She did not use the BiPAP device last night. Overall, she is doing better. Each day, just a bit better. She still very short of breath, especially with any activity. No new labs today other than a glucose of 168. 12/30/2023, the patient is being seen for a follow-up. The patient was hospitalized for an acute stroke exacerbation. The patient has been maintained on a combination of Symbicort and Incruse on outpatient basis. Currently the patient is on 3 L of oxygen by nasal cannula. The patient is on DuoNeb updrafts and the patient is also on a combination performance of Pulmicort updrafts twice a day. The patient is still on Solu-Medrol 60 mg IV every 8 hours. Feeling less short of breath. Less bronchospastic and wheezy. No other new complaints otherwise for now. No new labs are available from today. The patient's chest x-ray from the time of admission showed COPD. There was possibly a trace right- sided pleural effusion. The echocardiogram that was done on 12/19/2023 showed a preserved LV function without any significant valvular abnormalities. On today's evaluation on 12/31/2023, the patient is stable. She is feeling weak. She feels that the respiratory status is gradually improved over the past 2 weeks. She is currently on DuoNeb updrafts. She is also on a prednisone burst taper and the patient was started on 40 mg of prednisone as of yesterday. She remains on a combination of Perforomist and Pulmicort nebulized treatments twice a day. She went to the bathroom independently and she got worked up but she became slightly more short of breath however after arrival back to her bed, she seems to have recovered. Overall condition is stable for now. She is looking into rehabilitation. Actually she is also stable and the patient is currently on 3 L of oxygen by nasal cannula with a pulse ox of 93%. No other significant events overnight. No events overnight. The patient remains clinically and hemodynamically stable. She is doing well. No specific complaints. Overall respiratory status is stable and the patient is awaiting to be transferred potentially to [facility]. She will need further rehabilitation. No cough. No sputum production. She is currently on prednisone 40 mg p.o. daily as part of the burst taper. Rest of the respiratory medications have been unchanged and the patient has no significant issues for now. On today's evaluation of 01/01/2024, the patient is being seen for a follow-up. Objective - Vital Signs Vital signs: Vital Signs Temp 97.6 F 01/01/24 07:33 Pulse 88 01/01/24 07:33 Resp 16 01/01/24 07:33 BP 149/86 01/01/24 07:33 Pulse Ox 98 01/01/24 07:33 FiO2 40 12/27/23 03:22 Intake & Output 12/31/23 01/01/24 01/01/24 18:59 06:59 18:59 Intake Total 1520 118 Output Total 0 Balance 1520 118 Weight 37.6 kg 38.4 kg Intake: Oral 1520 118 Output: Stool 0 Other: Voiding Method Bedside Commode Bedside Commode Bedside Commode # Voids 4 2 # Bowel Movements 2 - Exam No acute distress, oriented 3. Currently, on 3 L nasal cannula. Calm and comfortable without any significant respiratory distress HEENT examination is grossly unremarkable. Neck supple. Full range of motion. No adenopathy thyromegaly or neck vein distention. Cardiovascular examination reveals regular rhythm rate. S1-S2 normal. No S3 or S4. No discernible murmur noted. Heart sounds are distant. Lungs reveal scattered bilateral expiratory rhonchi and wheezes. No crackles. Breath sounds equal. Breath sounds are diminished throughout. Abdomen soft bowel sounds are heard. No masses or tenderness. Extremities are intact. No cyanosis clubbing or edema. Skin is without rash or lesion. Neurologic examination is brief but nonfocal. - Labs CBC & Chem 7: 12/23/23 07:09 12/23/23 07:09 Labs: Abnormal Lab Results - Last 24 Hours (Table) 12/31/23 12/31/23 12/31/23 Range/Units 11:32 16:45 19:55 POC Glucose (mg/dL) 123 H 148 H 164 H (70-110) mg/dL Assessment and Plan Plan: Acute on chronic hypoxemic respiratory failure secondary to an acute exacerbation of chronic obstructive pulmonary disease. Clinically improving. No significant shortness of breath as [facility] and Pulmicort nebulized treatments twice a day and steroids in the form of oral prednisone Troponin leak, suspect oxygen supply and demand mismatch. Former smoker. Anorexia/cachexia syndrome of chronic illness. Hyperlipidemia. Hypothyroidism. Hypertension. Plan: Patient will likely transfer tomorrow with my nurse today. Discussed the case with the medical team. She will need to be on a combination of Symbicort and Incruse as maintenance on outpatient basis. Clinically stable Oxygen requirements are at 3 L/min nasal cannula Continue [facility] Completed the prednisone burst taper during the rehabilitation at [facility]. Recommend dropping the prednisone by 10 mg every 4 days. The patient is weak and the patient may benefit from rehabilitation on outpatient basis Physical therapy Increase mobility Patient has chronic hypoxic respiratory failure on 3 L of oxygen by nasal cannula which is her baseline We will continue to follow. Possible discharge today.
[2024-01-01 16:26] VITALS: BP 102/71; PULSE 91; TEMP 97.8
== END 2024-01-01 15:59 | DRG 190 ==
LOC: EC 10:10 → 1SOBS 13:06 → 3SCARD 17:39 → 5NMEDONC 12-21 21:02 → 3SCARD 12-24 15:05
PROVIDERS: ADMIT Family Medicine; ATTEND Family Medicine
PROC: 5A09357 Assistance with Respiratory Ventilation, Less than 24 Consecutive Hours, Continuous Positive Airway Pressure (ICD-10-PCS; principal; 2023-12-18)
DX: J44.1 Chronic obstructive pulmonary disease with (acute) exacerbation (principal); I21.A1 Myocardial infarction type 2; J96.21 Acute and chronic respiratory failure with hypoxia; E44.0 Moderate protein-calorie malnutrition; Z68.1 Body mass index [BMI] 19.9 or less, adult; J43.9 Emphysema, unspecified; E03.9 Hypothyroidism, unspecified; E78.5 Hyperlipidemia, unspecified; E86.0 Dehydration; F20.9 Schizophrenia, unspecified; I10 Essential (primary) hypertension; R63.0 Anorexia; Z53.20 Procedure and treatment not carried out because of patient's decision for unspecified reasons; Z79.51 Long term (current) use of inhaled steroids; Z79.890 Hormone replacement therapy; Z79.899 Other long term (current) drug therapy; Z82.5 Family history of asthma and other chronic lower respiratory diseases; Z99.81 Dependence on supplemental oxygen; Z88.8 Allergy status to other drugs, medicaments and biological substances; Z91.011 Allergy to milk products; Z87.891 Personal history of nicotine dependence
CPT/HCPCS: 36415; 36600; 71045; 71046; 80048; 80053; 82805; 83880; 84145; 84443; 84484; 85025; 85379; 85610; 85730; 93005; 93306; 94640; 94660; 94760; 96365; 96366; 96375; 99291